=== PATIENT | female | born 1990 ===

== ENCOUNTER → 2019-11-19 07:47 | Outpatient (BNVA) | payer OTHER, SELFPAY | PROVIDERS: PCP Family Medicine; Visit Provider Advanced Practice Midwife | DX: Z01.419 Encounter for gynecological examination (general) (routine) without abnormal findings (principal); Z20.2 Contact with and (suspected) exposure to infections with a predominantly sexual mode of transmission | CPT/HCPCS: 87491; 87591 ==

== ENCOUNTER 2019-11-19 09:05 | Outpatient (REF) | payer OTHER, SELFPAY ==
[2019-11-27 21:37] LABS: HPV mRNA E6/E7 Not Detected (Not Detected)
== END 2019-11-19 09:06 | disposition home or self-care (01) ==
LOC: HO.LNP 09:05
PROVIDERS: Visit Provider Advanced Practice Midwife
DX: Z01.419 Encounter for gynecological examination (general) (routine) without abnormal findings (principal); Z20.2 Contact with and (suspected) exposure to infections with a predominantly sexual mode of transmission
CPT/HCPCS: 87624; 88142

== ENCOUNTER 2020-01-28 13:15 | Outpatient (REF) | payer OTHER, SELFPAY ==
[2020-01-28 14:40] LABS: MANUAL DIFF FLAG NO
[2020-01-28 14:47] LABS: Basophils Percent Auto 0.2 % (0-2); Eosinophils Absolute Auto 0.1 X10*3/uL (0.0-0.4); Eosinophils Percent Auto 0.9 % (0-4); Hematocrit 42.3 % (37-47); Hemoglobin 13.8 g/dl (12.0-16.0); Imm Gran Abs Auto 0.02 X10*3/uL (0.00-0.03); Imm Gran Pct Auto 0.3 % (0.0-0.4); Lymphocytes Absolute Auto 1.9 X10*3/uL (1.2-4.9); Mean Corpuscular HGB Conc 32.6 g/dl (31.0-35.0); Mean Corpuscular Hemoglobin 29.6 pg (27.0-33.0); Mean Corpuscular Volume 90.6 fL (80-98); Monocytes Absolute Auto 0.5 X10*3/uL (0.1-1.2); Monocytes Percent Auto 9.1 % (2-11); Neutrophils Absolute Auto 3.2 X10*3/uL (2.0-8.3); Neutrophils Percent Auto 56.5 % (45-73); Platelet Count 248 X10*3/uL (160-400); Red Blood Count 4.67 X10*6/uL (4.20-5.50); Red Cell Distribution Width 12.9 % (11.0-16.0); White Blood Count 5.7 X10*3/uL (4.8-10.8)
[2020-01-28 15:05] LABS: Alanine Aminotransferase 21 U/L (0-31); Alkaline Phosphatase 50 U/L (39-117); Anion Gap 15 (12-20); Aspartate Amino Transferase 24 U/L (5-31); Bilirubin Total 0.8 mg/dL (0.0-1.0); Blood Urea Nitrogen 9 mg/dL (9-16); Calcium 8.6 mg/dL (8.4-10.2); Carbon Dioxide 20 mmol/L (22-29); Chloride 106 mmol/L (96-108); Cholesterol 175 mg/dL; Estimated Glomerular Filt Rate > 60; Glucose Fasting 69 mg/dL (60-99); HDL Cholesterol 54 mg/dL; LDL Cholesterol Calculated 99 mg/dl; Potassium 4.4 mmol/l (3.3-5.1); Sodium 137 mmol/L (135-145); Total Protein 7.2 g/dL (6.5-8.0); Triglycerides 111 mg/dL
[2020-01-28 15:24] LABS: TSH reflex Free T4 1.27 mIU/mL (0.32-4.0)
== END 2020-01-28 13:16 | disposition home or self-care (01) ==
LOC: HO.LAB 13:15
PROVIDERS: PCP Family Medicine; Visit Provider Family Medicine
DX: E66.3 Overweight (principal); Z00.00 Encounter for general adult medical examination without abnormal findings
CPT/HCPCS: 36415; 80053; 80061; 84443; 85025

== ENCOUNTER 2020-02-13 17:25 | Emergency (ER) | payer OTHER, SELFPAY ==
[2020-02-13 18:40] VITALS: BP 145/97; PULSE 96; RESP 18; TEMP 37.1; O2SAT 98; BMI 27.6
--- NOTE | 2020-02-13 19:10 | ED.GENADULT ---
HPI - General Adult General Chief complaint: General Medical Stated complaint: COVID + Time Seen by Provider: 02/13/20 18:26 Source: patient Mode of arrival: ambulatory Limitations: no limitations History of Present Illness HPI narrative: 29 y/o female who was tested positive for COVID two weeks ago presents to the ER with acute onset of loss of sense of taste and smell, continued headaches and continues chest wall tenderness. She reportedly called urgent care and told them she had persistent headaches and new loss of taste/smell and she was told to come to the ER for evaluation of possible stroke. She denies numbness, weakness, tingling, difficulty speaking, difficulty walking. Headaches have been generalized since she was diagnosed, moderate to severe with some improvement with Tylenol. No SOB or BRANDON. No fevers at home. Related Data Home Medications Medication Instructions Recorded Confirmed norethindrone acetate 1.5 1 tab PO DAILY 11/19/19 mg-ethinyl estradiol 30 mcg tablet Previous Rx's Medication Instructions Recorded norethindrone acetate 1.5 1 tab PO DAILY #21 tab 11/19/19 mg-ethinyl estradiol 30 mcg tablet Allergies Allergy/AdvReac Type Severity Reaction Status Date / Time Penicillins [PENICILLINS] Allergy Intermediate rash Verified 02/13/20 18:36 Review of Systems Review of Systems: Constitutional: No Fever, No Chills ENT/Mouth: No sore throat, No Rhinorrhea, No Swallowing Difficulty Cardiovascular: + Chest Pain (when touching her chest wall), No SOB, No Orthopnea, No Edema Respiratory: No Cough, No Sputum, No Wheezing, No dyspnea Gastrointestinal: No Nausea, No Vomiting, No Diarrhea, No abdominal Pain, No Hematochezia, No Melena Genitourinary: No Dysuria, No Urinary Frequency, No Hematuria Musculoskeletal: No joint pain, + Myalgias Skin: No Skin Lesions, No rash Neuro: No Weakness, No Numbness, No Dizziness, + Headache Psych: + Anxiety/Panic, No Depression Heme/Lymph: No Bruising, No Lymphadenopathy PMFSH Past Medical History Attestation statement: The following information was validated with the patient. Surgical History No history of previous surgery Family History Family History Mother Ovarian cancer Maternal Grandmother Breast cancer Social History Social History Alcohol intake: never Smoking Status: Never smoker Advance Directives: No Advance Directives Information Provided: Yes Gender identity: female Physical Exam Vital Signs: Vital Signs: Last Vital Signs Temp 98.7 F 02/13/20 18:40 Pulse 96 02/13/20 18:40 Resp 18 02/13/20 18:40 BP 145/97 H 02/13/20 18:40 Pulse Ox 98 02/13/20 18:40 Body Mass Index 27.6 Appearance: Alert. Oriented X3. No acute distress. Eyes: Pupils equal, round and reactive to light. ENT: Pharynx normal. Neck: Normal inspection. Neck supple. CVS: Normal heart rate and rhythm. Pulses normal. Left sided anterior chest wall tenderness, no ecchymosis. Respiratory: No respiratory distress. Breath sounds normal. Abdomen: Soft and nontender. +BS x4 Skin: Skin warm and dry. Normal skin color. Normal skin turgor. No rashes. Extremities: No lower extremity edema. Negative Faye's sign. Neuro: Oriented X 3. No motor deficit. No sensory deficit. Normal gait. Normal finger-nose, normal heel to jordan. Non-focal examination. NIH Stroke Scale Internal: Initial- Upon Arrival Level of Consciousness: Alert Level of Consciousness Questions: Answers both questions correctly Level of Consciousness Commands: Performs both tasks correctly Best Gaze: Normal Visual: No visual loss Facial Palsy: Normal Motor Arm (Right): No drift Motor Arm (Left): No drift Motor Leg (Right): No drift Motor Leg (Left): No drift Limb Ataxia: Absent Sensory: Normal Best Language: No aphasia Dysarthia: Normal Extinction and Inattention: No abnormality Score: 0 Course Course Course Narrative: 29 y/o female with history of COVID presenting with persistent headaches, chest discomfort and new onset of loss of sense of taste and smell. Very low suspicion for CVA, her examination is completely normal, non-focal. No description of TIA symptoms. Her VS are within normal limits without tachycardia or hypoxia. No clinical signs of DVT. She was counseled on how loss of taste/smell can occur with COVID and can persist for weeks to months. She was counseled on worrisome signs and symptoms of stroke and hypoxia that should prompt immediate ER evaluation. She is stable for discharge. Critical Care Time Critical Care Time Critical Care Time: No Discharge Plan Discharge Clinical Impression: COVID-19 Patient Disposition: Home, Self-Care Instructions: Costochondritis (ED), COVID-19 (Coronavirus Disease 2019) (ED) Additional Instructions: Your examination is normal today. Your chest discomfort is most likely muscular in nature. Take Tylenol and Motrin as needed for headaches and chest discomfort. Your loss of sense of taste and smell may persist for weeks or months. If you develop worsening headache, numbness, extremity weakness, difficulty breathing, shortness of breath, or new/different chest pain seek medical attention or come back to the ER for further evaluation. Follow up wtih your doctor this week. Prescriptions: No Action norethindrone ac-eth estradiol 1.5-30 mg-mcg tablet 1 tab PO DAILY RF: 0 norethindrone ac-eth estradiol [Loestrin 1.5/30 (21)] 1.5-30 mg-mcg tablet 1 tab PO DAILY Qty: 21 RF: 11 Interventions: ED Discharge Assessment Last Done: 02/13/20 19:16 Discharge Date/Time: 02/13/20 19:17
== END 2020-02-13 19:17 | disposition home or self-care (01) ==
PROVIDERS: Emergency Provider Internal Medicine
DX: M94.0 Chondrocostal junction syndrome [Tietze] (principal); Z86.16 Personal history of COVID-19
CPT/HCPCS: 99283

== ENCOUNTER 2020-08-25 06:44 | Outpatient (REF) | payer OTHER, SELFPAY ==
[2020-08-25 08:06] LABS: MANUAL DIFF FLAG NO
[2020-08-25 08:19] LABS: Basophils Percent Auto 0.1 % (0-2); Eosinophils Absolute Auto 0.2 X10*3/uL (0.0-0.4); Eosinophils Percent Auto 3.2 % (0-4); Hematocrit 39.2 % (37-47); Hemoglobin 12.7 g/dl (12.0-16.0); Imm Gran Abs Auto 0.03 X10*3/uL (0.00-0.03); Imm Gran Pct Auto 0.4 % (0.0-0.4); Lymphocytes Percent Auto 41.9 % (20-40); Mean Corpuscular HGB Conc 32.4 g/dl (31.0-35.0); Mean Corpuscular Hemoglobin 29.7 pg (27.0-33.0); Mean Corpuscular Volume 91.6 fL (80-98); Mean Platelet Volume 11.7 fL (9.4-12.3); Monocytes Absolute Auto 0.4 X10*3/uL (0.1-1.2); Monocytes Percent Auto 5.3 % (2-11); Neutrophils Absolute Auto 3.5 X10*3/uL (2.0-8.3); Neutrophils Percent Auto 49.1 % (45-73); Platelet Count 258 X10*3/uL (160-400); Red Blood Count 4.28 X10*6/uL (4.20-5.50); White Blood Count 7.1 X10*3/uL (4.8-10.8)
[2020-08-25 09:00] LABS: Alanine Aminotransferase 14 U/L (0-31); Albumin Level 3.8 g/dL (3.5-5.0); Alkaline Phosphatase 46 U/L (39-117); Anion Gap 12 (12-20); Aspartate Amino Transferase 17 U/L (5-31); Bilirubin Total 1.5 mg/dL (0.0-1.0); Blood Urea Nitrogen 8 mg/dL (9-16); Calcium 8.5 mg/dL (8.4-10.2); Carbon Dioxide 23 mmol/L (22-29); Chloride 106 mmol/L (96-108); Cholesterol 180 mg/dL; Estimated Glomerular Filt Rate > 60; Glucose Fasting 77 mg/dL (60-99); HDL Cholesterol 61 mg/dL; LDL Cholesterol Calculated 104 mg/dl; Potassium 4.6 mmol/L (3.3-5.1); Sodium 136 mmol/L (135-145); Total Protein 6.7 g/dL (6.5-8.0); Triglycerides 78 mg/dL
[2020-08-25 09:06] LABS: TSH reflex Free T4 1.94 uIU/mL (0.32-4.0)
[2020-08-27 21:21] LABS: TS Negative Control Passed; TS Panel A 0; TS Panel B 0; TS Positive Control Passed; TSpotTB Negative (SeeBelow)
== END 2020-08-25 06:45 | disposition home or self-care (01) ==
LOC: HO.LAB 06:44
PROVIDERS: PCP Family Medicine; Visit Provider Family Medicine
DX: Z00.00 Encounter for general adult medical examination without abnormal findings (principal); Z11.1 Encounter for screening for respiratory tuberculosis
CPT/HCPCS: 36415; 80053; 80061; 84443; 85025; 86481

== ENCOUNTER 2020-12-24 13:43 | Outpatient (REF) | payer OTHER, SELFPAY ==
[2020-12-25 13:55] LABS: CT PCR NOT DETECTED (Not Detect.); NG PCR NOT DETECTED (Not Detect.)
[2020-12-27 14:48] LABS: BV Int Neg Control Negative (Negative); BV Int Pos Control Positive (Positive)
== END 2020-12-24 13:44 | disposition home or self-care (01) ==
LOC: HO.LAB 13:43
PROVIDERS: PCP Family Medicine; Visit Provider Advanced Practice Midwife
DX: Z01.419 Encounter for gynecological examination (general) (routine) without abnormal findings (principal)
CPT/HCPCS: 87480; 87491; 87510; 87591; 87660

== ENCOUNTER 2021-12-27 13:26 | Outpatient (REF) | payer OTHER, SELFPAY ==
[2021-12-27 18:31] LABS: CT PCR NOT DETECTED (Not Detect.); NG PCR NOT DETECTED (Not Detect.)
== END 2021-12-27 13:27 | disposition home or self-care (01) ==
LOC: HO.LNP 13:26
PROVIDERS: Visit Provider Advanced Practice Midwife
DX: Z11.3 Encounter for screening for infections with a predominantly sexual mode of transmission (principal)
CPT/HCPCS: 87491; 87591

== ENCOUNTER 2022-09-14 14:59 | Outpatient (AMB) | payer OTHER, SELFPAY ==
--- NOTE | 2022-09-14 15:05 | A.OFFPC_ITS ---
Vital Signs 09/14/22 15:06 Height 4 ft 11 in Weight 165 lb 8 oz BMI 33.4 BP 126/82 Blood Pressure Location Rt brachial Position Sitting Pulse 85 Pulse Source Pulse Oximeter Temp 97.7 F Temp Source Temporal Artery Scan Pulse Oximetry (%) 98 Oxygen Delivery Method Room Air Intake Visit Reasons: Lower Back Pain Intake Note: Patient reports having pain on right mid section of her back radiating to the right side of abdomen and then proceeds to radiate to the lower abdomen area. The pain has been present for about 2 months inconsistently. Patient would like to request labs to be ordered. Learning Development Specialist Required: No Accompanied by: Self / Same As Patient Allergies Penicillins [PENICILLINS] Allergy (Intermediate, Verified 09/14/22 15:34) rash Medication List - Last Reconciled 09/14/22 by Maria De Jesus Ca CNP norethindrone ac-eth estradiol 1.5-30 mg-mcg (Junel) 1 tab PO DAILY 21 days Tobacco use date assessed: 09/14/22 Dental Screening Dental Screen Date: 09/14/22 Did you have a dental visit in the last 12 months?: Yes Did you have a dental problem in the last 6 months where you did not have access to dental care?: No Was dental information given to patient?: Patient has dentist HPI HPI Comments History of Present Illness Details 32-year-old female presents with complaints of intermittent pain to her right upper abd quadrant. She notes the pain sometimes radiates to the right flank. She has been alternating between Tylenol Motrin with significant improvement. She states the pain has been ongoing for the past 2 months. No nausea, vomiting, diarrhea, fever, chills, body aches, fatigue or weakness. No bowel irregularities. Denies injury or trauma. [facility] Surgical History No history of previous surgery Family History Mother Ovarian cancer Maternal Grandmother Breast cancer Social History Household Members: Significant Other Household Members Other:: daughter Housing: Apartment Alcohol intake: never Patient Tobacco Use Status: Never used Tobacco e-Cigarette/Vaping Use: Never Used service: No Current occupational status: employed Current occupation: [employer] Sexual orientation: Straight/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 Gender identity: Female Cognitive needs: No Hearing needs: No Vision needs: No Female Reproductive History Menstrual Age of Menarche: 7 Questionnaire Thrive Questionnaire Date Thrive assessed: 08/21/20 Review of Systems Const Details: Const Denies chills, Denies fatigue, Denies fever(s), Denies headache(s) and Denies weakness ENT Denies dizziness and Denies headache(s) Card Denies chest pain, Denies lightheadedness, Denies dyspnea and Denies other (Palpitations) Resp Denies cough, Denies dyspnea, Denies wheezing and Denies other ( shortness of breath) GI Reports abdominal pain, Denies melena, Denies hematochezia, Denies change in bowel habits, Denies dyspepsia and Denies nausea Denies hematuria and Denies dysuria Musc Denies abnormal gait, Denies myalgias, Denies arthralgias, Denies numbness and Denies tingling Skin/Breast Denies rash, Denies unusual bruising and Denies wounds Neuro Denies abnormal gait, Denies dizziness, Denies headache(s), Denies memory loss, Denies numbness, Denies Sensory deficit (Neuro), Denies tingling and Denies weakness Psych Denies anxiety, Denies depression, Denies memory loss Endo Denies cold intolerance, Denies fatigue, Denies heat intolerance, Denies polydipsia and Denies polyuria Aller/Immun Denies wheezing Physical exam (Primary Care) Vital Signs: Last Vital Signs Temp 97.7 F 09/14/22 15:06 Pulse 85 09/14/22 15:06 BP 126/82 09/14/22 15:06 Pulse Ox 98 09/14/22 15:06 Oxygen Delivery Method Room Air 09/14/22 15:06 BMI result Body Mass Index 33.4 Tobacco/Smoking Status: Tobacco use Status Tobacco use date assessed 09/14/22 09/14/22 15:16 Patient Tobacco Use Status Never used Tobacco 09/14/22 15:16 e-Cigarette/Vaping Use Never Used 09/14/22 15:16 Thrive Assessment: Date of Thrive Assessment Date Thrive assessed 08/21/20 09/14/22 15:16 Const Other: General: no acute distress and well developed Nutritional Appearance: well nourished Orientation/consciousness: patient oriented x3 [facility] Head: Yes normocephalic and Yes atraumatic Eyes General: appearance normal, both eyes and all related structures Pupils: Equal, round and reactive pupils present EOM: EOMs intact bilaterally Resp Effort & Inspection: normal respiratory effort Auscultation: clear to auscultation bilaterally Cardio Rate: regular rate Rhythm: regular rhythm Heart sounds: S1 normal heart sound present, S2 normal heart sound present, no gallops, no murmurs and no rubs GI Palpation (GI): No Abdominal aortic bruit present, Soft to palpation, tender right upper quadrant, No hepatosplenomegaly present and No Rebound tenderness present Auscultation: normal bowel sounds Negative Conte sign General: Yes no CVA tenderness Back/Spine/Pelvis Back: no CVA tenderness Cervical Spine: cervical ROM normal and No Cervical spine tenderness Thoracic/Lumbar Spine: thoraco-lumbar ROM normal, No pain with thoraco-lumbar ROM, No thoracic spinal tenderness and No lumbar spinal tenderness Extrem General: Yes normal to inspection, No edema and No calf tenderness Skin General: warm and dry. Normal skin color. Normal skin turgor Rashes: no rashes Neuro General: patient oriented x3, gait normal and no focal neuro deficit Cranial nerves: Yes Equal, round and reactive pupils present Cognition (Neuro): normal cognition Gait exam (Neuro): Normal gait present Sensory Exam: No Sensory deficit (Neuro) Psych Appearance: grossly normal Affect: normal affect Attitude: cooperative Thought process: Normal thought process present Assessment and Plan Assessment & Plan (1) Abdominal pain: Code(s): R10.9 - Unspecified abdominal pain Plan: 32-year-old female presents with complaints of intermittent pain to her right upper abd quadrant. She notes the pain sometimes radiates to the right flank. Right upper abdomen tender to palpation Negative Conte sign Labs ordered to rule out kidney or liver disease May take Tylenol or Motrin for pain or discomfort Warm/cold compresses encouraged Advised to get fasting blood work done Follow-up with worsening or new symptoms Verbalized understanding and agreed with treatment plan. Orders: Orders Comprehensive [place]. Panel Fast Today R10.9 - Unspecified abdominal pain Complete Blood Count Auto Diff Today R10.9 - Unspecified abdominal pain UA CC w/rflx Micro + Cult Today R10.9 - Unspecified abdominal pain Coding Level of Care Code Est Pt Level 3 (50761) Diagnoses Abdominal pain R10.9 Time Spent (min) 25
[2022-09-14 15:06] VITALS: BP 126/82; PULSE 85; TEMP 36.5; O2SAT 98; BMI 33.4
== END 2022-09-14 15:44 | disposition home or self-care (01) ==
PROVIDERS: PCP Family Medicine; Visit Provider Nurse Practitioner Family
DX: R10.9 Unspecified abdominal pain (principal)
CPT/HCPCS: 99213

== ENCOUNTER 2022-09-15 06:18 | Outpatient (REF) | payer OTHER, SELFPAY ==
[2022-09-15 11:33] LABS: Appearance Urine Turbid; Color Urine Dark Yellow; Glucose Urine UA Negative (Negative); Leukocyte Esterase Urine Small (1+) (Negative); MANUAL DIFF FLAG NO; Nitrite Urine Negative (Negative); PH 5.5 (5.0-9.0); Specific Gravity - Urine >= 1.030 (1.005-1.025); UMIC TRIGGER UACC YES; Urine Blood Small (1+) (Negative); Urine Ketones Negative (Negative); Urine Protein Negative (Neg-Trace)
[2022-09-15 11:37] LABS: Bacteria Urine None Seen (None Seen); Hyaline Casts Urine 0-2 /LPF (0-2); UACC Culture Trigger YES
[2022-09-15 12:02] LABS: Basophils Percent Auto 0.4 % (0-2); Eosinophils Absolute Auto 0.2 X10*3/uL (0.0-0.4); Eosinophils Percent Auto 2.2 % (0-4); Hematocrit 41.1 % (37.0-47.0); Hemoglobin 13.4 g/dl (12.0-16.0); Imm Gran Abs Auto 0.03 X10*3/uL (0.00-0.03); Imm Gran Pct Auto 0.4 % (0.0-0.4); Lymphocytes Absolute Auto 3.5 X10*3/uL (1.2-4.9); Lymphocytes Percent Auto 41.3 % (20-40); Mean Corpuscular HGB Conc 32.6 g/dl (31.0-35.0); Mean Corpuscular Hemoglobin 29.7 pg (27.0-33.0); Mean Corpuscular Volume 91.1 fL (80.0-98.0); Mean Platelet Volume 11.6 fL (9.4-12.3); Monocytes Absolute Auto 0.4 X10*3/uL (0.1-1.2); Neutrophils Absolute Auto 4.3 x10*3/uL (2.0-8.3); Neutrophils Percent Auto 50.7 % (45-73); Platelet Count 304 X10*3/uL (160-400); Red Blood Count 4.51 X10*6/uL (4.20-5.50); White Blood Count 8.5 X10*3/uL (4.8-10.8)
[2022-09-15 12:45] LABS: Alanine Aminotransferase 17 U/L (0-31); Albumin Level 3.9 g/dL (3.5-5.0); Alkaline Phosphatase 49 U/L (39-117); Anion Gap 12 (12-20); Aspartate Amino Transferase 17 U/L (5-31); Bilirubin Total 1.2 mg/dL (0.0-1.0); Blood Urea Nitrogen 10 mg/dL (9-16); Carbon Dioxide 23 mmol/L (22-29); Chloride 109 mmol/L (96-108); Estimated Glomerular Filt Rate > 60; Glucose Fasting 83 mg/dL (60-99); Potassium 4.4 mmol/L (3.3-5.1); Sodium 140 mmol/L (135-145); Total Protein 7.1 g/dL (6.5-8.0)
== END 2022-09-15 06:19 | disposition home or self-care (01) ==
LOC: HO.HMGCLDS 06:18
PROVIDERS: PCP Family Medicine; Visit Provider Nurse Practitioner Family
DX: R10.9 Unspecified abdominal pain (principal)
CPT/HCPCS: 36415; 80053; 81001; 85025; 87086

== ENCOUNTER 2022-11-11 21:45 | Emergency (ER) | payer OTHER, SELFPAY ==
[2022-11-11 21:55] VITALS: BP 148/87; PULSE 95; RESP 18; TEMP 36.9; O2SAT 98; BMI 33.4
[2022-11-11 23:05] VITALS: RESP 18
[2022-11-11 23:28] LABS: Eosinophils Absolute Auto 0.2 X10*3/uL (0.0-0.4); Hemoglobin 13.2 g/dl (12.0-16.0); Mean Corpuscular Hemoglobin 29.9 pg (27.0-33.0); PLT CLUMP 1; SCAN SMEAR FLAG 1
--- NOTE | 2022-11-11 23:29 | PC.NURSE ---
pt a&ox3. respirations even and unlabored. pt coming from home reporting a headache for one month, constipation and right abdominal and flank pain. pt reports moving her bowel this morning and reports the stool being little and small. pt reports pain with bowel movement and reports seeing scant blood on the toilet paper after wiping. pt reports chest pain at this time that she reports may be due to gas. pt denies nausea, vomiting and diarrhea. abdomen soft non tender to touch with hypoactive bowel sounds in all 4 quadrants. pt normal sinus on tele 80-84. urine and labs obtained and sent at this time. iv placed.
[2022-11-11 23:30] LABS: Basophils Percent Auto 0.2 % (0-2); Eosinophils Percent Auto 2.2 % (0-4); Imm Gran Abs Auto 0.03 X10*3/uL (0.00-0.03); Imm Gran Pct Auto 0.4 % (0.0-0.4); Lymphocytes Absolute Auto 3.1 X10*3/uL (1.2-4.9); Mean Corpuscular HGB Conc 33.8 g/dl (31.0-35.0); Mean Corpuscular Volume 88.2 fL (80.0-98.0); Mean Platelet Volume 11.1 fL (9.4-12.3); Monocytes Absolute Auto 0.6 X10*3/uL (0.1-1.2); Monocytes Percent Auto 7.5 % (2-11); Neutrophils Absolute Auto 4.1 x10*3/uL (2.0-8.3); Neutrophils Percent Auto 50.7 % (45-73); Red Blood Count 4.42 X10*6/uL (4.20-5.50); Red Cell Distribution Width 12.7 % (11.0-16.0)
[2022-11-11 23:39] LABS: Alanine Aminotransferase 29 U/L (0-31); Alkaline Phosphatase 59 U/L (39-117); Anion Gap 14 (12-20); Aspartate Amino Transferase 23 U/L (5-31); Bilirubin Total 0.8 mg/dL (0.0-1.0); Blood Urea Nitrogen 10 mg/dL (9-16); Calcium 8.8 mg/dL (8.4-10.2); Carbon Dioxide 21 mmol/L (22-29); Chloride 109 mmol/L (96-108); Creatinine Clr Calc Pharmacy 102.8; Estimated Glomerular Filt Rate > 60; Glucose Random 92 mg/dL (60-115); Sodium 140 mmol/L (135-145); Total Protein 7.3 g/dL (6.5-8.0)
[2022-11-11 23:46] LABS: MANUAL DIFF FLAG NO; Platelet Count 200 X10*3/uL (160-400)
[2022-11-12 00:22] VITALS: BP 140/92; PULSE 92; RESP 20; TEMP 37; O2SAT 95
[2022-11-12 02:00] VITALS: BP 127/90; PULSE 87; RESP 18; O2SAT 98
--- NOTE | 2022-11-12 02:16 | ED.GENADULT ---
HPI - General Adult General Chief complaint: General Medical Stated complaint: headache/multiple complaints Time Seen by Provider: 11/12/22 00:01 Source: patient and family () Mode of arrival: ambulatory History of Present Illness HPI narrative: This is a 32-year-old female who presents with difficulties on defecation for the past few days requiring straining and has been trying to use [id number] Dulcolax without significant success and she states that over the past couple of days she has started having blood mixed with her stool but denies any swelling within her underwear and is only noticed it on the toilet paper and in the toilet bowl. She also states that it hurts when she has a bowel movement but otherwise denies any fevers or chills. Related Data Previous Rx's Medication Instructions Recorded norethindrone acetate 1.5 1 tab PO DAILY 21 days #21 tabs 10/06/22 mg-ethinyl estradiol 30 mcg tablet (Junel) Allergies Allergy/AdvReac Type Severity Reaction Status Date / Time Penicillins [PENICILLINS] Allergy Intermediate rash Verified 11/11/22 21:55 Review of Systems Review of Systems: Pertinent positives and negatives as stated in HPI [facility] Past Medical History Source: nursing notes reviewed Surgical History No history of previous surgery Family History Family History Mother Ovarian cancer Maternal Grandmother Breast cancer Social History Social History Household Members: Significant Other Household Members Other:: daughter Housing: Apartment Alcohol intake: never Patient Tobacco Use Status: Never used Tobacco Smoked in Last 30 Days: No e-Cigarette/Vaping Use: Never Used Use of substances other than those prescribed or required for medical reasons: No Advance Directives: No Advance Directives Information Provided: Yes service: No Current occupational status: employed Current occupation: [employer] Sexual orientation: Straight/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 Gender identity: Female Cognitive needs: No Hearing needs: No Vision needs: No Physical Exam ED Vital Signs: Vital Signs - 24 hr 11/11/22 21:55 11/11/22 23:05 11/12/22 00:22 Temperature 98.4 F 98.6 F Pulse Rate 95 92 Respiratory Rate 18 18 20 Blood Pressure 148/87 H 140/92 H Pulse Oximetry 98 95 Oxygen Delivery Method Room Air Room Air 11/12/22 02:00 Temperature Pulse Rate 87 Respiratory Rate 18 Blood Pressure 127/90 H Pulse Oximetry 98 Oxygen Delivery Method Room Air BMI result Body Mass Index 33.4 VITAL SIGNS: Reviewed. GENERAL: Well developed, well nourished, in no acute distress. HEAD: Normocephalic/atraumatic EYES: PERRLA, EOMI EARS: Ext canals without abnormality NOSE: Nares patent bilateral OROPHARYNX: no oral lesions noted, posterior pharynx clear NECK: Supple, no adenopathy LUNGS: Normal breath sounds. No adventitious sounds or accessory muscle use. SpO2<98> CARDIOVASCULAR: Regular rate and rhythm without noted murmurs ABDOMEN: Soft, non-tender, non-distended with bowel sounds. FEROZ: [Bias Binding Cutter-Cait] There are non inflamed external hemorrhoids noted with some noted irritation at the base of 1 of them but no fissures appreciated and no gross blood noted. MUSCULOSKELETAL: No tenderness, deformities, or effusions noted on gross inspection. EXTREMITIES: No cyanosis, clubbing or edema. SKIN: Inspection of the skin reveals no rashes NEUROLOGIC: Alert and oriented x 4. Strength and sensation to light touch were grossly intact x 4. Medications Administered Discontinued Medications Generic Name Dose Route Start Last Admin Trade Name Freq PRN Reason Stop Dose Admin Acetaminophen 975 mg 11/12/22 00:45 11/12/22 01:01 Acetaminophen 325 Mg Tablet PO 11/12/22 00:46 975 mg ONCE ONE Administration Ibuprofen 400 mg 11/12/22 00:45 11/12/22 01:01 Ibuprofen 400 Mg Tablet PO 11/12/22 00:46 400 mg ONCE ONE Administration Lidocaine HCl 10 ml 11/12/22 01:52 11/12/22 02:19 Lidocaine Hcl 2 % Urojet 10 Ml Jel.Pf.Suzanna TOPICAL 11/12/22 01:53 10 ml ONCE ONE Administration Medical Decision Making Medical Decision Making [facility] Narrative: 32-year-old female with history and clinical presentation, DDX: Constipation, bleeding hemorrhoids, UTI, general headache I reviewed all investigations hematologic indices are negative for leukocytosis or left shift, no anemia or thrombocytopenia. Chemistry indices a without significant findings, there is no VIOLETTE or electrolytes/liver enzyme abnormalities, high sensitivity troponin is undetectable. Urine is negative and urinalysis is significant for small amount hematuria. KUB does demonstrate retained stool but otherwise normal bowel gas pattern. There are no significant findings on EKG. My interpretation is that patient has had constipation that has led to inflamed hemorrhoids during defecation but this is been complicated by some irritation of 1 of the hemorrhoids this leading to some mild bleeding without change in hemoglobin. Patient was given instructions for [id number] stool softeners as well as some topical lidocaine for relief and instructed follow-up with primary care doctor. Differential Diagnosis Differential Diagnoses: The differential diagnosis associated with the presentation includes Please see the discussion above Admission/Observation Consideration of admission/observation: Escalation of care including admission/observation considered Please see the discussion above Lab Data MDM Lab Attestation statement: I reviewed the patient's lab results. Please see the discussion above 11/11/22 23:17 11/11/22 23:17 Labs: Lab Results 11/11/22 11/11/22 11/11/22 Range/Units 23:02 23:09 23:17 WBC 8.0 (4.8-10.8) X10*3/uL RBC 4.42 (4.20-5.50) X10*6/uL Hgb 13.2 (12.0-16.0) g/dl Hct 39.0 (37.0-47.0) % MCV 88.2 (80.0-98.0) fL MCH 29.9 (27.0-33.0) pg MCHC 33.8 (31.0-35.0) g/dl RDW 12.7 (11.0-16.0) % Plt Count 200 D (160-400) X10*3/uL MPV 11.1 (9.4-12.3) fL Immature Gran % (Auto) 0.4 (0.0-0.4) % Neut % (Auto) 50.7 (45-73) % Lymph % (Auto) 39.0 (20-40) % Pope % (Auto) 7.5 (2-11) % Eos % (Auto) 2.2 (0-4) % Baso % (Auto) 0.2 (0-2) % Lymph # (Auto) 3.1 (1.2-4.9) X10*3/uL Pope # (Auto) 0.6 (0.1-1.2) X10*3/uL Eos # (Auto) 0.2 (0.0-0.4) X10*3/uL Baso # (Auto) 0.0 (0.0-0.2) X10*3/uL Abs Immat Gran (auto) 0.03 (0.00-0.03) X10*3/uL Absolute Neuts (auto) 4.1 (2.0-8.3) x10*3/uL Absolute Nucleated RBC 0.000 (0.0-0.012) X10*3/uL Nucleated RBC % (auto) 0.0 (0.0-0.2) /100WBC Sodium 140 (135-145) mmol/L Potassium 4.0 (3.3-5.1) mmol/L Chloride 109 H (96-108) mmol/L Carbon Dioxide 21 L (22-29) mmol/L Anion Gap 14 (12-20) BUN 10 (9-16) mg/dL Creatinine 0.71 (0.5-1.4) mg/dL Estim Creat Clear Calc 102.8 Estimated GFR > 60 Random Glucose 92 (60-115) mg/dL Calcium 8.8 (8.4-10.2) mg/dL Total Bilirubin 0.8 (0.0-1.0) mg/dL AST 23 (5-31) U/L ALT 29 (0-31) U/L Alkaline Phosphatase 59 (39-117) U/L Troponin I High Sens < 2.7 (<3.5-17.0) ng/L Total Protein 7.3 (6.5-8.0) g/dL Albumin 4.0 (3.5-5.0) g/dL Urine Color Yellow Urine Appearance Clear Urine pH 7.5 (5.0-9.0) Ur Specific [place] 1.015 (1.005-1.025) Urine Protein Negative (Neg-Trace) mg/dL Urine Glucose (UA) Negative (Negative) mg/dL Urine Ketones Negative (Negative) mg/dL Urine Blood Small (1+) H (Negative) Urine Nitrite Negative (Negative) Ur Leukocyte Esterase Negative (Negative) Urine RBC 11-20 H (0-2) /HPF Urine WBC 0-5 (0-5) /HPF Ur Squamous Epith Cells 3-5 (0-2) /HPF Urine Bacteria None Seen (None Seen) Hyaline Casts 0-2 (0-2) /LPF Urine Test NEGATIVE (NEGATIVE) Independent Interpretation I performed an independent interpretation of an: EKG Interpretation: Normal sinus rhythm, HR-85, no STEMI, CT/QRS/QTC is within normal limits. Radiology Impression Discussion of test interpretation with radiology: I have reviewed the radiologist's reading. Radiologist Impression: Please see the discussion above External Record Review External record reviewed: Office record, Outpatient record, Prior outpatient labs and Prior outpatient radiology Discharge Plan Discharge Clinical Impression: Constipation, Hemorrhoids Patient Disposition: Home, Self-Care Instructions: Constipation (ED), Hemorrhoids (ED), High Fiber Diet (ED), Sitz Bath (DC), Fleet Enema (ED) Additional Instructions: 1. Recommend adding [id number]-[id number] MiraLax for additional resolution of your constipation in addition to increasing the amount of water intake and consumption of fruits and vegetables. 2. You can place a small amount of the lidocaine around your anus prior to bowel movement. In addition, consider jfyd-skk-[id number] Preparation H for additional symptom relief. 3. Follow-up with primary care provider on Monday morning. Return to the ER for any worsening symptoms. Prescriptions: No Action norethindrone ac-eth estradiol [ ()] 1.5-30 mg-mcg tablet 1 tab PO DAILY 21 Days Qty: 21 4RF Rx Instructions: skip placebo week for continuous dosing Referrals: Carlos Monsivais MD [Primary Care Provider] - Interventions: ED Discharge Assessment Last Done: 11/12/22 02:26 Discharge Date/Time: 11/12/22 02:27
== END 2022-11-12 02:27 | disposition home or self-care (01) ==
PROVIDERS: Emergency Provider Student in an Organized Health Care Education/Training Program; PCP Internal Medicine
DX: K59.00 Constipation, unspecified (principal); K64.4 Residual hemorrhoidal skin tags
CPT/HCPCS: 36415; 74018; 80053; 81001; 81025; 84484; 85025; 93005; 99283; 99285

== ENCOUNTER 2022-12-22 11:24 | Outpatient (AMB) | payer OTHER, SELFPAY ==
--- NOTE | 2022-12-22 11:40 | A.OFFPC_ITS ---
Vital Signs 12/22/22 11:41 Height 5 ft Weight 166 lb BMI 32.4 BP 118/72 Blood Pressure Location Lt brachial Pulse 83 Pulse Source Pulse Oximeter Pulse Oximetry (%) 98 Oxygen Delivery Method Room Air Intake Visit Reasons: constipation+ NEEDS PHQ9+THRIVE Intake Note: Patient is here with follow up on constipation, she was seen at the hospital. She was looking for a laxitive other than Miralx. Allergies Penicillins [PENICILLINS] Allergy (Intermediate, Verified 12/22/22 11:48) rash Tobacco use date assessed: 09/14/22 HPI constipation+ NEEDS PHQ9+THRIVE HPI Details 32 y/o female presents today with compla ints of constipation. She states she is looking for another laxative other than Miralax. Had been seen at the emergency department for abdominal pain. Plain film had shown significant stools. She was prescribed Miralax and had been recommended to keep up her water intake. FORMERLY [facility] Surgical History No history of previous surgery Family History Mother Ovarian cancer Maternal Grandmother Breast cancer Social History Household Members: Significant Other Household Members Other:: daughter Housing: Apartment Alcohol intake: never Patient Tobacco Use Status: Never used Tobacco e-Cigarette/Vaping Use: Never Used service: No Current occupational status: employed Current occupation: [employer]IVE Sexual orientation: Straight/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 Gender identity: Female Cognitive needs: No Hearing needs: No Vision needs: No Female Reproductive History Menstrual Age of Menarche: 7 Questionnaire PHQ-9 Over the last 2 weeks, how often have you been bothered by any of the following problems? 1. Little interest or pleasure in doing things: not at all 2. Feeling down, depressed, or hopeless: not at all 3. Trouble falling or staying asleep, or sleeping too much: not at all 4. Feeling tired or having little energy: not at all 5. Poor appetite or overeating: not at all 6. Feeling bad about yourself - or that you are a failure or have let yourself or your family down: not at all 7. Trouble concentrating on things, such as reading the newspaper or watching television: not at all 8. Moving or speaking so slowly that other people could have noticed. Or the opposite - being so fidgety or restless that you have been moving around a lot more than usual: not at all 9. Thoughts that you would be better off or of hurting yourself in some way: not at all Total score: 0 Depression Screening Interpretation: Negative Depression Screening Done: Yes 56711 - PHQ-9 Billing: Yes Source: Developed by Drs. Doni Piedra, Nery Shields, Rg Schneider and colleagues, with an educational flakito from [employer]. Thrive Questionnaire Date Thrive assessed: 08/21/20 I am a: Patient What is your living situation today?: I have a steady place to live Within the past 12 months, did the food you bought not last and you didn't have the money to get more?: Never true Within the past 12 months, did you worry whether your food would run out before you got money to buy more?: Never true Do you have trouble paying for medicines?: No Do you have trouble getting transportation to medical appointments?: No Do you have trouble paying your heating and electricity bill?: No Do you have trouble taking care of your child, family member or friend?: No Do you have trouble with day-to-day activities such as bathing, preparing meals, shopping, managing finances, etc.?: No Are you currently unemployed and looking for a job?: No Are you interested in more education?: No AUDIT C Alcohol Use Questionnaire (AUDIT-C) 1. How often do you have a drink containing alcohol?: Never 3. How often do you have six or more drinks on one occasion?: Never Total Score: 0 SCOTTY-7 AMB Questionnaire SCOTTY-7 Date SCOTTY - 7 assessed: 12/22/22 Feeling nervous, anxious, or on edge: 0 = Not at all Not being able to stop or control worryin = Not at all Worrying too much about different things: 0 = Not at all Trouble relaxin = Not at all Being so restless that it is hard to sit still: 0 = Not at all Becoming easily annoyed or irritable: 0 = Not at all Feeling afraid as if something awful might happen: 0 = Not at all Total SCOTTY-7 score (0-4 normal; 5-9 mild; 10-14 moderate; 15-21 severe): 0 Source: Developed by Drs. Doni Piedra, Nery Shields, Rg Schneider and colleagues, with an educational flakito from [employer]. SCOTTY-7 Assessment Billing SCOTTY-7 Assessment Tool: SCOTTY-7 Assessment 11380 Review of Systems Const Denies chills, Denies fatigue, Denies fever(s), Denies headache(s) and Denies weakness ENT Denies dizziness and Denies headache(s) Card Denies dyspnea Resp Denies cough, Denies dyspnea, Denies wheezing and Denies other (shortness of breath) GI Reports constipation Musc Denies numbness and Denies tingling Neuro Denies dizziness, Denies headache(s), Denies numbness, Denies tingling and Denies weakness Psych Denies anxiety and Denies depression Endo Denies fatigue Aller/Immun Denies wheezing Physical exam (Primary Care) Vital Signs: Last Vital Signs Pulse 83 12/22/22 11:41 BP 118/72 12/22/22 11:41 Pulse Ox 98 12/22/22 11:41 Oxygen Delivery Method Room Air 12/22/22 11:41 BMI result Body Mass Index 32.4 Tobacco/Smoking Status: Tobacco use Status Tobacco use date assessed 09/14/22 12/22/22 11:41 Patient Tobacco Use Status Never used Tobacco 12/22/22 11:41 e-Cigarette/Vaping Use Never Used 12/22/22 11:41 PHQ-9: PHQ-9 Score PHQ-9: Total score 0 12/22/22 11:55 Depression Screening Interpretation: Negative Thrive Assessment: Date of Thrive Assessment Date Thrive assessed 08/21/20 12/22/22 11:41 Const General: well developed; No acute distress Nutritional Appearance: well nourished Orientation/consciousness: patient oriented x3 HENMT Head: Yes normocephalic and Yes atraumatic Eyes General: appearance normal, both eyes and all related structures Pupils: Equal, round and reactive pupils present EOM: EOMs intact bilaterally Resp Effort & Inspection: normal respiratory effort Neuro General: patient oriented x3 and gait normal Cranial nerves: Yes Equal, round and reactive pupils present Psych Affect: normal affect Assessment and Plan Assessment & Plan (1) Constipation: Code(s): K59.00 - Constipation, unspecified Plan: Ongoing?constipation Strongly?encouraged?patient?to?increase?her?water?intake Will?give?her?a?soluble?fiber?tab She?can?also?try?senna?for?2?weeks. Patient?requests?referral?to?gastroenterology.??Will?make?referral?but?I?encoura ged?her?that?if?things?are?much?better?on?the?above?regimen,?she?cancel?the?appo intment Medications: New sennosides (senna) 8.6 mg PO DAILY PRN 14 tabs 0RF constipation 14 days calcium polycarbophil (FiberCon) 625 mg PO DAILY 30 tabs 2RF 30 days Coding Level of Care Code Est Pt Level 3 (27883) Diagnoses Constipation K59.00 Additional Codes SCOTTY-7 Assessment Billing - SCOTTY-7 Assessment Tool: SCOTTY-7 Assessment 76081 ([id number])
[2022-12-22 11:41] VITALS: BP 118/72; PULSE 83; O2SAT 98; BMI 32.4
== END 2022-12-22 12:45 | disposition home or self-care (01) ==
PROVIDERS: PCP Family Medicine; Visit Provider Family Medicine
DX: K59.00 Constipation, unspecified (principal)
CPT/HCPCS: 99213

== ENCOUNTER 2023-01-05 07:38 | Outpatient (AMB) | payer OTHER, SELFPAY ==
--- NOTE | 2023-01-05 08:05 | A.OFFPC_ITS ---
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 Harrison for a PE Allergies Penicillins [PENICILLINS] Allergy (Intermediate, Verified 01/05/23 08:05) rash Tobacco use date assessed: 01/05/23 Dental Screening Dental Screen Date: 01/05/23 Did you have a dental visit in the last 12 months?: Yes Did you have a dental problem in the last 6 months where you did not have access to dental care?: No Was dental information given to patient?: Patient has dentist HPI HPI Comments History of Present Illness Details Patient is a 32-year-old female in today to establish care, and to have her physical exam. She was seen in the emergency room 6 weeks prior to this appointment for abdomen pain. She was given a workup including a KUB which demonstrated constipation. Patient was seen 1 month later for the same issue and was given MiraLax. At the time of appointment today she states that she is no longer having constipation or abdomen pain. Her last [facility] smear was in [facility] 2019 which was negative, she has her next appointment with OBGYN in January 2023. She has not gotten her yearly flu or COVID vaccine, plans to get them within the next 2 weeks on a weekend. She is due for an eye exam and will be making an appointment for optometry. She has no complaints at the time of appointment. [facility] Surgical History No history of previous surgery Family History (Updated 01/05/23 @ 08:08 by Luz Birmingham CMA) Mother Ovarian cancer Maternal Grandmother Breast cancer Social History Household Members: Significant Other Household Members Other:: daughter Housing: Apartment Alcohol intake: never Patient Tobacco Use Status: Never used Tobacco e-Cigarette/Vaping Use: Never Used service: No Current occupational status: employed Current occupation: [employer] INTER[employer] Sexual orientation: Straight/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 Gender identity: Female Cognitive needs: No Hearing needs: No Vision needs: No Female Reproductive History Menstrual Age of Menarche: 7 Questionnaire PHQ-9 Over the last 2 weeks, how often have you been bothered by any of the following problems? 1. Little interest or pleasure in doing things: not at all 2. Feeling down, depressed, or hopeless: not at all 3. Trouble falling or staying asleep, or sleeping too much: not at all 4. Feeling tired or having little energy: not at all 5. Poor appetite or overeating: not at all 6. Feeling bad about yourself - or that you are a failure or have let yourself or your family down: not at all 7. Trouble concentrating on things, such as reading the newspaper or watching television: not at all 8. Moving or speaking so slowly that other people could have noticed. Or the opposite - being so fidgety or restless that you have been moving around a lot more than usual: not at all 9. Thoughts that you would be better off or of hurting yourself in some way: not at all Total score: 0 Depression Screening Interpretation: Negative Depression Screening Done: Yes 10345 - PHQ-9 Billing: Yes Source: Developed by Drs. Doni Piedra, Nery Shields, Rg Schneider and colleagues, with an educational flakito from [employer]. Thrive Questionnaire Date Thrive assessed: 01/05/23 I am a: Patient What is your living situation today?: I have a steady place to live Within the past 12 months, did the food you bought not last and you didn't have the money to get more?: Never true Within the past 12 months, did you worry whether your food would run out before you got money to buy more?: Never true Do you have trouble paying for medicines?: No Do you have trouble getting transportation to medical appointments?: No Do you have trouble paying your heating and electricity bill?: No Do you have trouble taking care of your child, family member or friend?: No Do you have trouble with day-to-day activities such as bathing, preparing meals, shopping, managing finances, etc.?: No Are you currently unemployed and looking for a job?: No AUDIT C Alcohol Use Questionnaire (AUDIT-C) 1. How often do you have a drink containing alcohol?: Never Total Score: 0 SCOTTY-7 AMB Questionnaire SCOTTY-7 Date SCOTTY - 7 assessed: 01/05/23 Feeling nervous, anxious, or on edge: 0 = Not at all Not being able to stop or control worryin = Not at all Worrying too much about different things: 0 = Not at all Trouble relaxin = Not at all Being so restless that it is hard to sit still: 0 = Not at all Becoming easily annoyed or irritable: 0 = Not at all Feeling afraid as if something awful might happen: 0 = Not at all Total SCOTTY-7 score (0-4 normal; 5-9 mild; 10-14 moderate; 15-21 severe): 0 Source: Developed by Drs. Doni Piedra, Nery Shields, Rg Schneider and colleagues, with an educational flakito from [employer]. SCOTTY-7 Assessment Billing SCOTTY-7 Assessment Tool: SCOTTY-7 Assessment 69903 Review of Systems Const Details: Constitutional : No Weight loss, No Fever, No Chills, No Fatigue, No Malaise ENT/Mouth : No sore throat, No Rhinorrhea, No otalgia. Eyes: No Eye Pain, No Swelling, No Redness. Cardiovascular : No Chest Pain, No SOB, No Dyspnea on Exertion, No Orthopnea, No Edema, No Palpitations Respiratory : No Cough, No Sputum, No Wheezing Gastrointestinal : No Nausea, No Vomiting, No Diarrhea, No Constipation, No abdominal Pain, No Hematochezia, No Melena Genitourinary : No Dysuria, No Urinary Frequency, No Hematuria, Musculoskeletal : No joint pain, No Myalgias, No Joint Swelling Skin : No Skin Lesions, No rash Neuro : No Weakness, No Numbness, No Dizziness, No Headache Psych : No Anxiety/Panic, No Depression Heme/Lymph: No Bruising, No Bleeding,No Lymphadenopathy Endocrine : No Polyuria, No Polydipsia All other systems reviewed and are negative Physical exam (Primary Care) Vital Signs: Last Vital Signs Pulse 85 01/05/23 08:07 BP 134/82 01/05/23 08:07 Pulse Ox 98 01/05/23 08:07 Oxygen Delivery Method Room Air 01/05/23 08:07 Care Plan Goal for BP management: Vital signs have been reviewed and are stable BMI result Body Mass Index 32.6 Tobacco/Smoking Status: Tobacco use Status Tobacco use date assessed 01/05/23 01/05/23 08:10 Patient Tobacco Use Status Never used Tobacco 01/05/23 08:10 e-Cigarette/Vaping Use Never Used 01/05/23 08:10 PHQ-9: PHQ-9 Score PHQ-9: Total score 0 01/05/23 08:10 Depression Screening Interpretation: Negative Thrive Assessment: Date of Thrive Assessment Date Thrive assessed 01/05/23 01/05/23 08:10 Const General: cooperative and no acute distress Orientation/consciousness: patient oriented x3 Limitations: no limitations HENMT Head: Yes normal to inspection and Yes normocephalic Ears: hearing grossly normal bilaterally and TM's normal bilaterally General nose exam: Normal external nose present and Normal septum present Face and sinus: Yes normal facial exam and Yes sinuses nontender Mouth: Normal oral and palatal mucosa present Throat: Yes posterior oropharynx normal and Yes tonsils normal Eyes General: appearance normal, both eyes and all related structures Pupils: Equal, round and reactive pupils present Direct Ophthalmoscopy: normal light reflex and no photophobia Neck Neck: Yes normal visual inspection, Yes full ROM and Yes no lymphadenopathy Resp Effort & Inspection: normal respiratory effort Auscultation: clear to auscultation bilaterally Cardio Rhythm: regular rhythm Heart sounds: S1 normal heart sound present and S2 normal heart sound present GI Inspection: Yes normal to inspection Palpation (GI): Soft to palpation and nontender Auscultation: normal bowel sounds General: Yes no CVA tenderness Back/Spine/Pelvis Back: no CVA tenderness Skin General skin exam: no rashes or lesions noted Neuro General: patient oriented x3 Cranial nerves: Yes Equal, round and reactive pupils present Motor exam (neuro): 5/5 motor strength present throughout Romberg Test: Negative Extrem General: Yes normal to inspection and Yes full ROM Psych Affect: normal affect Insight: Good insight present (Psych) Judgement: Good judgement present (Psych) Results Reviewed Results Reviewed: WBC 8.0 4.8-10.8 X10*3/uL RBC 4.42 4.20-5.50 X10*6/uL HGB 13.2 12.0-16.0 g/dl HCT 39.0 37.0-47.0 % MCV 88.2 80.0-98.0 fL MCH 29.9 27.0-33.0 pg MCHC 33.8 31.0-35.0 g/dl RDW 12.7 11.0-16.0 % PLT 200 # 160-400 X10*3/uL MPV 11.1 9.4-12.3 fL Neut Pct Auto 50.7 45-73 % ImGran Pct Auto 0.4 0.0-0.4 % Lymp Pct Auto 39.0 20-40 % Parke Pct Auto 7.5 2-11 % Eos Pct Auto 2.2 0-4 % Baso Pct Auto 0.2 0-2 % NRBC Pct Auto 0.0 0.0-0.2 /100WBC ANC Neut Abs # 4.1 2.0-8.3 x10*3/uL ImGran Abs Auto 0.03 0.00-0.03 X10*3/uL Lymph Abs Auto 3.1 1.2-4.9 X10*3/uL Parke Abs Auto 0.6 0.1-1.2 X10*3/uL Eos Abs Auto 0.2 0.0-0.4 X10*3/uL Baso Abs Auto 0.0 0.0-0.2 X10*3/uL NRBC Abs Auto 0.000 0.0-0.012 X10*3/uL Sodium 140 135-145 mmol/L Potassium 4.0 3.3-5.1 mmol/L CL 109 H 96-108 mmol/L CO2 21 L 22-29 mmol/L Gap 14 12-20 BUN 10 9-16 mg/dL Creat 0.71 0.5-1.4 mg/dL Estimated CrCl 102.8 Provided height and weight: 152.4 cm, 77.6 kg. eGFR (calculated from the MDRD study equation) and eCrCl (calculated from the Cockcroft-Gault equation) are based on different parameters and may not yield comparable results. If eCrCl result is absurd, please check patient's height/weight. EGFR > 60 NOTE: For -[place] individuals, multiply the result by 1.210. Chronic Kidney Disease: Estimated GFR < 60 mL/min/1.73m2 Severe Kidney Disease: Estimated GFR < 15 mL/min/1.73m2 Glucose, Random 92 60-115 mg/dL CA 8.8 8.4-10.2 mg/dL Total Bili 0.8 0.0-1.0 mg/dL AST (GOT) 23 5-31 U/L ALT (GPT) 29 0-31 U/L Protein, Total 7.3 6.5-8.0 g/dL Alb 4.0 3.5-5.0 g/dL Alk Phos 59 39-117 U/L Assessment and Plan Assessment & Plan (1) Physical exam: Code(s): Z00.00 - Encounter for general adult medical examination without abnormal findings Plan: Patient had recent blood draw for weeks prior to this appointment which included a CBC, CMP, and UA. Will add lab draw of lipid profile, T4, TSH, vitamin-D. Patient has upcoming appointment in 3 weeks with OBGYN for Pap smear. Patient has declined in office flu shot, states she will get both the flu and COVID immunization over the weekend. She has been educated to make an appointment with optometry. Patient will make a follow-up physical exam for 1 year. I will return the patient the results of the blood draw. Patient is agreeable to this plan. (2) Adult general medical exam: Code(s): Z00.00 - Encounter for general adult medical examination without abnormal findings Orders: Orders Lipid Panel Today Z00.00 - Encounter for general adult medical examination without abnormal findings TSH reflex Free T4 Today Z00.00 - Encounter for general adult medical examination without abnormal findings Vitamin D 25-OH (D2 and D3) Today Z00.00 - Encounter for general adult medical examination without abnormal findings Review Flu Vaccine not done: patient reason (Patient decline) Coding Level of Care Code Est Pt Level 3 (97972) Diagnoses Physical exam Z00.00 Adult general medical exam Z00.00 Additional Codes SCOTTY-7 Assessment Billing - SCOTTY-7 Assessment Tool: SCOTTY-7 Assessment 92944 ([id number]) Time Spent (min) 30
[2023-01-05 08:07] VITALS: BP 134/82; PULSE 85; O2SAT 98; BMI 32.6
== END 2023-01-05 08:36 | disposition home or self-care (01) ==
PROVIDERS: PCP Nurse Practitioner Primary Care; Visit Provider Nurse Practitioner Primary Care
DX: Z00.00 Encounter for general adult medical examination without abnormal findings (principal)
CPT/HCPCS: 99395

== ENCOUNTER 2023-01-13 08:49 | Outpatient (REF) | payer OTHER, SELFPAY ==
[2023-01-13 13:23] LABS: Cholesterol 183 mg/dL (<200); HDL Cholesterol 61 mg/dL (>40); LDL Cholesterol Calculated 109 mg/dL (<100); Triglycerides 67 mg/dL (<150)
[2023-01-13 13:57] LABS: TSH reflex Free T4 1.45 uIU/mL (0.32-4.0)
[2023-01-17 18:35] LABS: Vitamin D 25-OH, D2 4 ng/mL; Vitamin D 25-OH, D3 15 ng/mL; Vitamin D 25-OH, Total 19 ng/mL (30-100)
== END 2023-01-13 08:50 | disposition home or self-care (01) ==
LOC: HO.HMGCLDS 08:49
PROVIDERS: PCP Nurse Practitioner Primary Care; Visit Provider Nurse Practitioner Primary Care
DX: Z00.00 Encounter for general adult medical examination without abnormal findings (principal)
CPT/HCPCS: 36415; 80061; 82306; 84443

== ENCOUNTER 2023-02-02 08:54 | Outpatient (AMB) | payer OTHER, SELFPAY ==
--- NOTE | 2023-02-02 09:24 | MHC.OFFVIS ---
Intake Vital Signs 02/02/23 09:25 Height 5 ft Weight 165 lb BMI 32.2 BP 116/70 Intake Visit Reasons: [employer] annual exam/45 mins per BM Teacher Of The Sight Impaired Required: No Information Interpreted: non-clinical & clinical Civil Cad Tech: Civil Cad Tech Present (Caroline CARVER) Accompanied by: Self / Same As Patient Allergies Penicillins [PENICILLINS] Allergy (Intermediate, Verified 02/02/23 09:39) rash Is last menstrual period known: No (pills) HPI HPI Comments History of Present Illness Details She is a premenopausal woman presenting for annual examination. Doing well with concerns: Hot flashes, sweating, muscle aches, constipation, low vitamin-D level, control concerns these are causing her side effects, no withdrawal bleed in years, facial hair growth she is blocking, acne. Reports taking her control regularly. Unable to void for urine sample today to verify test. She tries to eat healthy and stays active with exercise. Regular monthly menses. Currently is sexually active. She denies vaginal itching and irritation. STI screening offered; she accepts. FH ovarian and breast cancer. Last pap smear 2019, negative. She denies any contraindications to control such as: migraines with aura, history of DVT or pulmonary emboli, high blood pressure, liver disease, thrombolic disorders, Lupus, +LEO, breast cancer, or smoking. 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 Sexual orientation: Straight/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 Gender identity: Female Cognitive needs: No Hearing needs: No Vision needs: No Female Reproductive History Menstrual Age of Menarche: 7 Total pregnancies: 1 Full term: 1 Number of Living Children: 1 Date of last pap smear: 11/19/19 Review of Systems Const All systems reviewed & are unremarkable except as noted in HPI and below Reports as per HPI Eyes Reports no additional complaints ENT Reports no additional complaints Card Reports no additional complaints Resp Reports no additional complaints GI Reports as per HPI and Reports no additional complaints Reports as per HPI Musc Reports no additional complaints Skin/Breast Reports as per HPI Neuro Reports no additional complaints Psych Reports no additional complaints Endo Reports no additional complaints Herminio/Lymph Reports no additional complaints Aller/Immun Reports no additional complaints Physical Exam Vital Signs: Last Vital Signs BP 116/70 02/02/23 09:25 BMI result Body Mass Index 32.2 Const General: cooperative, healthy appearing, no acute distress, well developed and alert Orientation/consciousness: patient oriented x3 HEENT Head: Yes normal to inspection Eyes General: appearance normal, both eyes and all related structures Neck Neck: Yes normal visual inspection Thyroid: Thyroid normal Chest Chest palpation & inspection: normal inspection of the chest and other (no puckering, dimpling, peau de orange, retraction, discharge, masses) Breast/axilla inspection: normal inspection of the breasts Breast/axilla palpation: normal palpation of the breasts Resp Effort & Inspection: normal respiratory effort GI Inspection: Yes normal to inspection Palpation (GI): Soft to palpation Rectal Exam - Female: deferred General: Yes bladder normal to palpation External Female Exam: normal external appearance and normal appearance of the urethra Speculum Exam - Vagina: normal appearance of the vagina, normal palpation and normal vaginal discharge Speculum Exam - Cervix: normal appearance of the cervix and normal palpation Bimanual exam- vagina & uterus: normal bimanual exam, normal palpation, uterine size normal, bladder normal to palpation, normal palpation and non-tender Bimanual Exam- Adnexa, other: no masses Skin General skin exam: no rashes or lesions noted Rashes: no rashes Neuro General: patient oriented x3 Cognition (Neuro): normal cognition Extrem General: Yes normal to inspection Psych Attitude: cooperative Thought process: Normal thought process present Assessment & Plan Assessment & Plan (1) Well woman exam with routine gynecological exam: Code(s): Z01.419 - Encounter for gynecological examination (general) (routine) without abnormal findings (2) Pelvic cramping: Code(s): R10.2 - Pelvic and perineal pain Plan Discussed: At the end of the visit she admitted to have pelvic cramping, unable to void. Current recommendations for pap smears per ASCCP guidelines. Breast awareness and periodic breast exams. Maintain a healthy lifestyle including a well balanced diet and routine exercise. Insert wart control hormone use warnings: go to ER if and loss of vision, blindness, severe headache, chest pain or difficulty breathing, severe abdominal pain, or any pain or swelling in an extremity. Lab workup due to her symptoms to include also an ultrasound. Return to the office in 2 weeks for test results. All of her questions and concerns were addressed to the best of my ability. 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 This note is constructed using voice recognition software. While every effort has been made to ensure accuracy, operations and maintenance supervisor errors may have been included. Orders: Orders CT NG by PCR Today Z01.419 - Encounter for gynecological examination (general) (routine) without abnormal findings, Z20.2 - Contact with and (suspected) exposure to infections with a predominantly sexual mode of transmission 17 Hydroxyprogesterone Today L68.0 - Hirsutism, L70.9 - Acne, unspecified HCG Quantitative Today L68.0 - Hirsutism, L70.9 - Acne, unspecified Follicle Stimulating Hormone Today R23.2 - Flushing Testosterone, Free/Total Today L68.0 - Hirsutism, L70.9 - Acne, unspecified Prolactin Today L68.0 - Hirsutism, L70.9 - Acne, unspecified DHEA Sulfate Today L68.0 - Hirsutism, L70.9 - Acne, unspecified US pelvic and transvaginal Today R10.2 - Pelvic and perineal pain UA CC w/rflx Micro + Cult Today R10.2 - Pelvic and perineal pain Medications: Refilled norethindrone ac-eth estradiol 1.5-30 mg-mcg () skip placebo week for continuous dosing 1 tab PO DAILY 21 days 63 tabs 4RF Coding Level of Care Code Est Pt Prev Care 18-39y(98453) Diagnoses Well woman exam with routine gynecological exam Z01.419 Pelvic cramping R10.2
[2023-02-02 09:25] VITALS: BP 116/70; BMI 32.2
== END 2023-02-02 10:07 | disposition home or self-care (01) ==
PROVIDERS: PCP Family Medicine; Visit Provider Advanced Practice Midwife
DX: Z01.419 Encounter for gynecological examination (general) (routine) without abnormal findings (principal); R10.2 Pelvic and perineal pain
CPT/HCPCS: 99395

== ENCOUNTER 2023-02-02 08:54 | Outpatient (REF) | payer OTHER, SELFPAY | END 2023-02-02 08:55 | disposition home or self-care (01) | LOC: HO.LNP 08:54 | PROVIDERS: PCP Family Medicine; Visit Provider Advanced Practice Midwife | DX: Z01.419 Encounter for gynecological examination (general) (routine) without abnormal findings (principal); R10.2 Pelvic and perineal pain; L68.0 Hirsutism; L70.9 Acne, unspecified; Z11.3 Encounter for screening for infections with a predominantly sexual mode of transmission; Z80.41 Family history of malignant neoplasm of ovary; Z80.3 Family history of malignant neoplasm of breast | CPT/HCPCS: 99395 ==

== ENCOUNTER 2023-02-02 10:14 | Outpatient (REF) | payer OTHER, SELFPAY ==
[2023-02-02 12:29] LABS: Appearance Urine Clear; Color Urine Yellow; Glucose Urine UA Negative (Negative); Leukocyte Esterase Urine Negative (Negative); Nitrite Urine Negative (Negative); Specific Gravity - Urine 1.025 (1.005-1.025); UMIC TRIGGER UACC YES; Urine Blood Moderate (2+) (Negative); Urine Ketones Negative (Negative); Urine Protein Negative (Neg-Trace)
[2023-02-02 12:36] LABS: HCG Quantitative < 2 mIU/mL
[2023-02-02 13:00] LABS: Bacteria Urine 1+ (None Seen); Hyaline Casts Urine 0-2 /LPF (0-2); RBC Urine 0-2 /HPF (0-2); Squamous Epithelial Cell Urine 0-2 /HPF (0-2); WBC Urine 0-5 /HPF (0-5)
[2023-02-02 14:08] LABS: CT PCR NOT DETECTED (Not Detect.); NG PCR NOT DETECTED (Not Detect.)
[2023-02-03 09:33] LABS: DHEA Sulfate 87 mcg/dL (19-237); Follicle Stimulating Hormone 1.2 mIU/mL; Prolactin 6.8 ng/mL
[2023-02-10 14:09] LABS: Testosterone, Free 0.7 pg/mL (0.1-6.4); Testosterone, Total 13 ng/dL (2-45)
== END 2023-02-02 10:15 | disposition home or self-care (01) ==
LOC: HO.LAB 10:14
PROVIDERS: PCP Nurse Practitioner Primary Care; Visit Provider Advanced Practice Midwife
DX: Z01.419 Encounter for gynecological examination (general) (routine) without abnormal findings (principal); R23.2 Flushing; L68.0 Hirsutism; L70.9 Acne, unspecified; Z20.2 Contact with and (suspected) exposure to infections with a predominantly sexual mode of transmission; R10.2 Pelvic and perineal pain
CPT/HCPCS: 0353U; 81001; 82627; 83001; 83498; 84146; 84402; 84403; 84702

== ENCOUNTER 2023-03-01 10:24 | Outpatient (REF) | payer OTHER, SELFPAY ==
--- NOTE | ~2023-03-01 | US_ITS ---
EXAMINATION: US PELVIS CLINICAL INFORMATION: Pelvic pain; the last menstrual period is uncertain. COMPARISON: Pelvic ultrasound dated 11/13/2018. TECHNIQUE: Ultrasound of the pelvis is performed using both transabdominal and transvaginal transducers along with Doppler. Transvaginal imaging is performed due to inadequate visualization transabdominally. FINDINGS: Uterus: The uterus is anteverted. The uterus measures 8.1 x 3.5 x 4.7 cm. Nabothian cysts are seen within the cervix. The double wall endometrial thickness is 2 mm. The uterus is smooth in contour and has normal myometrial echogenicity. No visible fibroid. Adnexa: Both ovaries are visualized. There is normal color flow to the adnexa. There is no ovarian torsion. There is no pelvic ascites or fluid collection. Right ovary measures 2.8 x 1.5 x 1.3, volume 2.9 mL. Left ovary measures 1.6 x 2.2 x 1.0, volume 1.8 mL. US/US pelvic and transvaginal IMPRESSION: Nabothian cysts are seen within the cervix. The examination is otherwise unremarkable.
== END 2023-03-01 10:25 | disposition home or self-care (01) ==
LOC: HO.US 10:24
PROVIDERS: PCP Nurse Practitioner Primary Care; Visit Provider Advanced Practice Midwife
DX: R10.2 Pelvic and perineal pain (principal)
CPT/HCPCS: 76830; 76856

== ENCOUNTER 2023-04-05 14:39 | Outpatient (AMB) | payer MEDICAID, SELFPAY ==
[2023-04-05 14:44] VITALS: BP 118/78; PULSE 80; O2SAT 98; BMI 33.2
--- NOTE | 2023-04-05 14:44 | A.OFFPC_ITS ---
Vital Signs 04/05/23 14:44 Height 5 ft Weight 170 lb BMI 33.2 BP 118/78 Blood Pressure Location Lt brachial Position Sitting Pulse 80 Pulse Source Pulse Oximeter Pulse Oximetry (%) 98 Oxygen Delivery Method Room Air Intake Visit Reasons: Constipation Intake Note: Pt is here today for a sick visit. Pt c/o R side abdominal pain. Pt states that she has been constipated. Pt states that her stools have been hard and she noticed some blood. Allergies Penicillins [PENICILLINS] Allergy (Intermediate, Verified 04/05/23 14:55) rash Medication List - Last Reconciled 04/05/23 by KAMINI Rodriguez calcium polycarbophil (FiberCon) 625 mg PO DAILY 30 days norethindrone ac-eth estradiol 1.5-30 mg-mcg (Junel) 1 tab PO DAILY 21 days polyethylene glycol 3350 (Miralax) 17 grams PO DAILY sennosides (senna) 8.6 mg PO DAILY PRN 14 days Tobacco use date assessed: 04/05/23 Dental Screening Dental Screen Date: 04/05/23 Did you have a dental visit in the last 12 months?: Yes Did you have a dental problem in the last 6 months where you did not have access to dental care?: No Was dental information given to patient?: Patient has dentist HPI HPI Comments History of Present Illness Details Patient is here for an ongoing issue of constipation and abdominal pain. Patient previously had KUB 3 months prior which demonstrated constipation, was given MiraLax, had relief for couple of months, and has now developed constipation again. Patient has been taking MiraLax with little effect. She states that she feels like she is getting pain up under her ribs, and her stomach feels like it is always making noise and rumbling . Patient states that she does get relief when she does have a bowel movement. Admits to not taking MiraLax consistently. 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 1. Little interest or pleasure in doing things: not at all 2. Feeling down, depressed, or hopeless: not at all 3. Trouble falling or staying asleep, or sleeping too much: not at all 4. Feeling tired or having little energy: not at all 5. Poor appetite or overeating: not at all 6. Feeling bad about yourself - or that you are a failure or have let yourself or your family down: not at all 7. Trouble concentrating on things, such as reading the newspaper or watching television: not at all 8. Moving or speaking so slowly that other people could have noticed. Or the opposite - being so fidgety or restless that you have been moving around a lot more than usual: not at all 9. Thoughts that you would be better off or of hurting yourself in some way: not at all Total score: 0 Depression Screening Interpretation: Negative Depression Screening Done: Yes 63540 - PHQ-9 Billing: Yes Source: Developed by Drs. Doni Piedra, Nery Shields, Rg Schneider and colleagues, with an educational flakito from [employer]. Thrive Questionnaire Date Thrive assessed: 04/05/23 I am a: Patient What is your living situation today?: I have a steady place to live Within the past 12 months, did the food you bought not last and you didn't have the money to get more?: Never true Within the past 12 months, did you worry whether your food would run out before you got money to buy more?: Never true Do you have trouble paying for medicines?: No Do you have trouble getting transportation to medical appointments?: No Do you have trouble paying your heating and electricity bill?: No Do you have trouble taking care of your child, family member or friend?: No Do you have trouble with day-to-day activities such as bathing, preparing meals, shopping, managing finances, etc.?: No Are you currently unemployed and looking for a job?: No Are you interested in more education?: No Please select the resources that you would like help with: None Currently or been in a relationship where the following occur: no concerns reported THRIVE Score: 0 AUDIT C Alcohol Use Questionnaire (AUDIT-C) 1. How often do you have a drink containing alcohol?: Never 3. How often do you have six or more drinks on one occasion?: Never Total Score: 0 SCOTTY-7 AMB Questionnaire SCOTTY-7 Date SCOTTY - 7 assessed: 04/05/23 Feeling nervous, anxious, or on edge: 0 = Not at all Not being able to stop or control worryin = Not at all Worrying too much about different things: 0 = Not at all Trouble relaxin = Not at all Being so restless that it is hard to sit still: 0 = Not at all Becoming easily annoyed or irritable: 0 = Not at all Feeling afraid as if something awful might happen: 0 = Not at all Total SCOTTY-7 score (0-4 normal; 5-9 mild; 10-14 moderate; 15-21 severe): 0 Source: Developed by Drs. Doni Piedra, Nery Shields, Rg Schneider and colleagues, with an educational flakito from [employer]. SCOTTY-7 Assessment Billing SCOTTY-7 Assessment Tool: SCOTTY-7 Assessment 25836 Review of Systems Const Details: Constitutional : No Weight loss, No Fever, No Chills, No Fatigue, No Cardiovascular : No Chest Pain, No SOB, No Dyspnea on Exertion, No Orthopnea, No Edema, No Palpitations Respiratory : No Cough, No Sputum, No Wheezing Gastrointestinal : No Nausea, No Vomiting, No Diarrhea, Admits Constipation, Admits abdominal Pain, No Hematochezia, No Melena, Admits gas. Genitourinary : No Dysuria, No Urinary Frequency, No Hematuria, Neuro : No Weakness, No Numbness, No Dizziness, No Headache Psych : No Anxiety/Panic, No Depression Heme/Lymph: No Bruising, No Bleeding,No Lymphadenopathy All other systems reviewed and are negative Physical exam (Primary Care) BMI result Body Mass Index 33.2 Tobacco/Smoking Status: Tobacco use Status Tobacco use date assessed 01/05/23 01/05/23 08:10 Patient Tobacco Use Status Never used Tobacco 01/05/23 08:10 e-Cigarette/Vaping Use Never Used 01/05/23 08:10 Depression Screening Interpretation: Negative Thrive Assessment: Date of Thrive Assessment Date Thrive assessed 01/05/23 01/05/23 08:10 Currently or been in a relationship where the following occur: no concerns reported Const Other: Appearance: Alert.? Oriented X3.? No acute distress.? Cardiac: Normal heart rate and rhythm.? Pulses normal.? Respiratory: No respiratory distress.? Breath sounds normal.? Abdomen: Hyperactive. Some tenderness RUQ. No masses on deep palpation. Neuro: Oriented X 3.? No motor deficit.? No sensory deficit. CN 2-12 intact Assessment and Plan Assessment & Plan (1) Constipation: Comment: Patient has had intermittent constipation for the past 3 months. She has only been taking MiraLax intermittently. Will have patient start senna and Colace. Will also give patient for famotidine, dicyclomine, and simethicone. Patient will have labs, CBC, CMP, lipase and amylase. Patient will have ultrasound of the abdomen. Last thyroid values were normal. Code(s): K59.00 - Constipation, unspecified Qualifiers: Constipation type: unspecified constipation type Qualified Code(s): K59.00 - Constipation, unspecified Plan: Take your medications as prescribed. If you were prescribed antibiotics today, it is important that you take your medication to their entirety, do not skip any doses, do not finish them early. Follow-up with your primary care provider this week. Return to the emergency department with new or worsening symptoms. Such as fevers, chills, chest pain, shortness of breath, nausea, vomiting, dizziness, headache, vision changes, lethargy In case of emergency call 911 Plan Will refer to to GI if indicated. Patient has follow-up in 3 months she has been instructed to get back to the office within 2-3 days if no improvement Orders: Orders Comprehensive Met. Panel Today Z91.89 - Other specified personal risk factors, not elsewhere classified Amylase Today R10.9 - Unspecified abdominal pain US abdomen complete Today R10.9 - Unspecified abdominal pain Lipase Today R10.9 - Unspecified abdominal pain Medications: New docusate sodium (Colace) 100 mg PO DAILY 30 caps 0RF dicyclomine 10 mg PO BID PRN 30 caps 0RF abdominal pain simethicone (Gas Relief (simethicone)) 180 mg PO DAILY 30 caps 0RF famotidine 20 mg PO DAILY 90 tabs 0RF Refilled sennosides (senna) 8.6 mg PO DAILY 14 days PRN 14 tabs 0RF constipation Coding Level of Care Code Est Pt Level 3 (15245) Diagnoses Constipation, unspecified constipation type K59.00 Constipation type: unspecified constipation type Additional Codes SCOTTY-7 Assessment Billing - SCOTTY-7 Assessment Tool: SCOTTY-7 Assessment 55042 ([id number]) Time Spent (min) 30
== END 2023-04-05 15:48 | disposition home or self-care (01) ==
PROVIDERS: PCP Nurse Practitioner Primary Care; Visit Provider Nurse Practitioner Primary Care
DX: K59.00 Constipation, unspecified (principal)
CPT/HCPCS: 99214

== ENCOUNTER 2023-04-26 08:51 | Emergency (ER) | payer OTHER, SELFPAY ==
[2023-04-26 08:55] VITALS: BP 136/89; PULSE 94; RESP 16; TEMP 36.6; O2SAT 98; BMI 34.1
--- NOTE | 2023-04-26 09:53 | ED_ITS ---
HPI - General Adult General Chief complaint: General Medical Stated complaint: Ingrown toenail Time Seen by Provider: 04/26/23 09:53 Source: patient Mode of arrival: ambulatory Limitations: no limitations History of Present Illness HPI narrative: Patient is an otherwise healthy, 33 year old female, presenting to the ED with a 2 day history of right great toe pain. Patient reports getting a pedicure at the nail salon on Monday, and starting Monday she began to have pain in her right great toe. Patient reports swelling, redness, and pain with walking and putting pressure on the right side of her great toe along the border of the nail. Patient reports that the pain has been getting increasingly worse and that it has been draining puss. Denies fever/chills, lightheadedness, dizziness, headaches, vision changes, SOB, chest pain, and joint pain. Denies sick contacts, recent travel, and recent ABX use. MD complaint: R great toe pain Onset (ago): day(s) (2) Location: right and lower extremity (R great toe) Radiation: non-radiation Severity: mild Severity scale (1-10): 2 Quality: aching Pain Consistency: intermittent Relieving factors: rest Exacerbating factors: movement (weight bearing) Associated symptoms: denies other symptoms Treatments prior to arrival: NSAID, heat therapy (warm compress) and other (OTC ingrown toenail cream) Related Data Home Medications Medication Instructions Recorded Confirmed polyethylene glycol 3350 17 17 g PO DAILY 12/22/22 04/05/23 gram/dose oral powder (Miralax) Previous Rx's Medication Instructions Recorded norethindrone acetate 1.5 1 tab PO DAILY 21 days #63 tabs 02/02/23 mg-ethinyl estradiol 30 mcg tablet (Junel) calcium polycarbophil 625 mg 625 mg PO DAILY 30 days #30 tabs 03/29/23 tablet (FiberCon) docusate sodium 100 mg capsule 100 mg PO DAILY #30 caps 04/05/23 (Colace) famotidine 20 mg tablet 20 mg PO DAILY #90 tabs 04/05/23 sennosides 8.6 mg tablet (senna) 8.6 mg PO DAILY PRN constipation 04/05/23 14 days #14 tabs simethicone 180 mg capsule (Gas 180 mg PO DAILY #30 caps 04/05/23 Relief (simethicone)) dicyclomine 10 mg capsule 10 mg PO BID PRN abdominal pain 04/13/23 #30 caps cephalexin 500 mg capsule 500 mg PO Q6H 7 days #28 caps 04/26/23 Allergies Allergy/AdvReac Type Severity Reaction Status Date / Time Penicillins [PENICILLINS] Allergy Intermediate rash Verified 04/26/23 08:55 Review of Systems Constitutional: Constitutional: Reports no additional constitutional complaints, Denies chills, Denies fever(s) and Denies night sweats Eyes: Eyes: Reports no additional eye complaints, Denies blurry vision, Denies change in vision, Denies diplopia, Denies eye discharge, Denies loss of vision and Denies eye pain ENT: Denies dizziness Cardiovascular: Cardiovascular: Reports no additional cardiovascular complaints, Denies chest pain, Denies lightheadedness, Denies Loss of Consciousness and Denies dyspnea Respiratory: Respiratory: Reports no additional respiratory complaints and Denies dyspnea Gastrointestinal: Gastrointestinal: Reports no additional gastrointestinal complaints, Denies abdominal pain, Denies melena, Denies hematochezia, Denies change in bowel habits and Denies change in stool character Genitourinary: Genitourinary: Denies hematuria, Denies urinary frequency, Denies dysuria, Denies urinary incontinence, Denies urinary hesitancy and Denies urinary urgency Musculoskeletal: Musculoskeletal: Reports no additional musculoskeletal complaints, Denies numbness and Denies tingling Comments: right great toe pain Neurologic: Denies dizziness, Denies loss of vision, Denies numbness and Denies tingling Psychiatric: Psychiatric: Reports no additional psychiatric complaints Endocrine: Endocrine: Reports no additional endocrine complaints Hematologic/Lymphatic: Hematologic/Lymphatic: Reports no additional hematologic/lymphatic complaints Allergic/Immunologic: Allergic/Immunologic: Reports no additional allergic/immunologic complaints [facility] Past Medical History Attestation statement: The following information was validated with the patient. Source: old records reviewed and nursing notes reviewed Medical History (Updated 04/26/23 @ 11:25 by JEANETTE Valdez) Constipation Abdominal pain Acquired skin tag Constipation by delayed colonic transit Family history of breast cancer in first degree relative Encounter for annual routine gynecological examination Screening for cervical cancer Screening-pulmonary TB Adult general medical exam COVID-19 Laboratory examination ordered as part of a routine general medical examination Overweight Potential exposure to STD Well woman exam with routine gynecological exam Surgical History No history of previous surgery Family History Family History Mother Ovarian cancer Maternal Grandmother Breast cancer Social History Social History Household Members: Significant Other Household Members Other:: daughter Housing: Apartment Alcohol intake: never Patient Tobacco Use Status: Never used Tobacco e-Cigarette/Vaping Use: Never Used Advance Directives: No Advance Directives Information Provided: No service: No Current occupational status: employed 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 Sexual orientation: Straight/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 Gender identity: Female Cognitive needs: No Hearing needs: No Vision needs: Yes Physical Exam ED Vital Signs: Vital Signs - 24 hr 04/26/23 08:55 04/26/23 10:36 Temperature 97.9 F 98 F Pulse Rate 94 89 Respiratory Rate 16 20 Blood Pressure 136/89 148/85 H Pulse Oximetry 98 96 Oxygen Delivery Method Room Air Room Air BMI result Body Mass Index 34.1 Const General: cooperative, no acute distress, alert and awake Nutritional Appearance: obese Orientation/consciousness: patient oriented x3 Limitations: no limitations HENMT Head: Yes normal to inspection Ears: hearing grossly normal bilaterally General nose exam: Normal external nose present Face and sinus: Yes normal facial exam Mouth: Normal oral and palatal mucosa present, no drooling and no muffled voice Eyes General: appearance normal, both eyes and all related structures Periorbital: periorbital findings normal Eyelids: Yes eyelids normal Conjunctivae: conjunctivae normal Pupils: Equal, round and reactive pupils present EOM: EOMs intact bilaterally Neck Neck: Yes normal visual inspection Chest Chest palpation & inspection: normal inspection of the chest Resp Effort & Inspection: normal respiratory effort and able to speak in complete sentences Auscultation: clear to auscultation bilaterally Cardio Jugular venous distension: no JVD Palpation: normal PMI Rate: regular rate Rhythm: regular rhythm GI Inspection: Yes normal to inspection Neuro General: patient oriented x3 Cranial nerves: Yes Equal, round and reactive pupils present Cognition (Neuro): normal cognition Motor exam (neuro): 5/5 motor strength present throughout Sensory Exam: Normal double simultaneous stimulation for sensation Coordination: [id number] test normal Extrem General: Yes full ROM and Yes capillary refill normal Right lower extremity: full ROM and foot Details: normal capillary refill, tende rness Location: of the great toe Location: at the distal phalanx and warmth Location: of the great toe Location: at the distal phalanx and along the dorsal aspect Psych Appearance: grossly normal Mental Status: mental status grossly normal Affect: normal affect Attitude: cooperative Thought process: Normal thought process present Thought content: Normal thought content present Insight: Good insight present (Psych) Medical Decision Making Medical Decision Making MDM Narrative: Patient is a 33 year old assigned female at with no reported medical history presenting to the emergency department today with right great toe pain. Patient's physical exam was as noted and consistent with right great toe cellulitis. Patient does not have an ingrown right great toe nail as the sides of the nail are entirely visible. I explained my physical exam findings to the patient. I answered all questions asked by the patient. I stressed the importance of the patient taking her medication as prescribed and continuing to let the area drain. I stressed the importance of the patient following up with her primary care provider. I stressed the importance of the patient returning to the emergency department immediately if her symptoms were to worsen or if she were to develop any dizziness, shortness of breath, difficulty breathing, chest pain, blurry vision, loss of vision, nausea, vomiting, abdominal pain, fever, chills, back pain, or any other complaints. Patient verbalized agreement and understanding with this treatment plan and discharge. Differential Diagnosis Differential Diagnoses: The differential diagnosis associated with the presentation includes Right great toe pain Right great toe cellulitis Admission/Observation Consideration of admission/observation: Escalation of care including admission/observation considered Patient would have been admitted to the hospital had her clinical presentation warranted hospital admission. Prescription Management I considered prescription management with: Antibiotic (patient prescribed an antibiotic for right great toe cellulitis) Discharge Plan Discharge Clinical Impression: Cellulitis Patient Disposition: Home, Self-Care Instructions: Cellulitis (DC), Warm Compress or Soak (ED) Additional Instructions: Take your antibiotic as prescribed. Even when you start to feel better, COMPLETE THE ENTIRE COURSE. Follow up with your primary care provider. [facility] if your symptoms worsen or if you develop any dizziness, shortness of breath, difficulty breathing, chest pain, blurry vision, loss of vision, nausea, vomiting, abdominal pain, fever, chills, back pain, or any other complaints. Prescriptions: New cephalexin 500 mg capsule 500 mg PO Q6H 7 Days Qty: 28 0RF No Action calcium polycarbophil [FiberCon] 625 mg tablet 625 mg PO DAILY 30 Days Qty: 30 2RF dicyclomine 10 mg capsule 10 mg PO BID PRN (Reason: abdominal pain) Qty: 30 0RF docusate sodium [Colace] 100 mg capsule 100 mg PO DAILY Qty: 30 0RF sennosides [senna] 8.6 mg tablet 8.6 mg PO DAILY PRN (Reason: constipation) 14 Days Qty: 14 0RF simethicone [Gas Relief (simethicone)] 180 mg capsule 180 mg PO DAILY Qty: 30 0RF famotidine 20 mg tablet 20 mg PO DAILY Qty: 90 0RF polyethylene glycol 3350 [Miralax] 17 gram/dose powder 17 g PO DAILY norethindrone ac-eth estradiol [Junel ()] 1.5-30 mg-mcg tablet 1 tab PO DAILY 21 Days Qty: 63 4RF Rx Instructions: skip placebo week for continuous dosing Referrals: Maurisio Lilly FNP [Primary Care Provider] - Stand Alone Forms: Work/School Release Interventions: ED Discharge Assessment Last Done: 04/26/23 10:36 Discharge Date/Time: 04/26/23 10:37 Print Language: Portuguese
[2023-04-26 10:36] VITALS: BP 148/85; PULSE 89; RESP 20; TEMP 36.6; O2SAT 96
== END 2023-04-26 10:37 | disposition home or self-care (01) ==
PROVIDERS: Emergency Provider Emergency Medicine; PCP Nurse Practitioner Primary Care
DX: L03.031 Cellulitis of right toe (principal)
CPT/HCPCS: 99282; 99283

== ENCOUNTER 2023-05-01 08:28 | Outpatient (REF) | payer OTHER, SELFPAY ==
--- NOTE | ~2023-05-01 | US_ITS ---
EXAMINATION: US ABDOMEN COMPLETE CLINICAL INFORMATION: Unspecified abdominal pain. COMPARISON: X-ray abdomen KUB 11/12/2022. CT abdomen and pelvis 07/20/2018. Renal ultrasound 12/30/2016. TECHNIQUE: Real-time imaging of the abdominal viscera. Limited visualization due to bowel gas. FINDINGS: PANCREAS: Limited visualization of pancreatic tail and head. Imaged portion of pancreatic body is unremarkable. ABDOMINAL AORTA: Unremarkable. INFERIOR VENA CAVA: Visualized portions are normal. LIVER: Multiple hepatic cysts, largest left hepatic lobe 0.8 cm and right hepatic lobe 1.3 x 1.3 x 1.4 cm. 0.6 cm echogenic focus in the inferior right hepatic lobe, possibly representing a hemangioma, but difficult to characterize. Heterogeneous and coarse hepatic echotexture. Limited visualization. GALLBLADDER: Borderline gallbladder wall thickening of 3 mm. Gallstone measures 2.1 cm. The gallbladder is physiologically distended without evidence of sludge, polyps or pericholecystic fluid. COMMON BILE DUCT: Normal in caliber measuring 0.4 cm in diameter. RIGHT KIDNEY: No hydronephrosis. No renal calculi. Limited visualization. The kidney measures 10.2 cm in maximum dimension. LEFT KIDNEY: No hydronephrosis. No renal calculi. Limited visualization. The kidney measures 10.4 cm in maximum dimension. SPLEEN: Normal. The spleen measures 10.4 cm in maximum dimension. FREE FLUID: None. US/US abdomen complete IMPRESSION: 1. Multiple hepatic cysts, largest left hepatic lobe 0.8 cm and right hepatic lobe 1.4 cm. A 0.6 cm echogenic focus in the inferior right hepatic lobe, possibly representing a hemangioma, but difficult to characterize. 2. Heterogeneous and coarse hepatic echotexture. Correlation with liver function tests recommended. 3. Cholelithiasis. Borderline gallbladder wall thickening of 3 mm.
== END 2023-05-01 08:29 | disposition home or self-care (01) ==
LOC: HO.HMGCX 08:28
PROVIDERS: PCP Nurse Practitioner Primary Care; Visit Provider Nurse Practitioner Primary Care
DX: R10.9 Unspecified abdominal pain (principal)
CPT/HCPCS: 76700

== ENCOUNTER 2023-05-05 16:26 | Outpatient (REF) | payer OTHER, SELFPAY ==
[2023-05-05 18:32] LABS: Alanine Aminotransferase 17 U/L (0-31); Albumin Level 4.1 g/dL (3.5-5.0); Alkaline Phosphatase 61 U/L (39-117); Amylase 83 U/L (28-100); Anion Gap 10 (12-20); Aspartate Amino Transferase 17 U/L (5-31); Bilirubin Total 0.9 mg/dL (0.0-1.0); Blood Urea Nitrogen 10 mg/dL (9-16); Calcium 9.2 mg/dL (8.4-10.2); Carbon Dioxide 24 mmol/L (22-29); Chloride 107 mmol/L (96-108); Estimated Glomerular Filt Rate > 60; Glucose Random 76 mg/dL (60-115); Lipase 22 U/L (8-78); Potassium 4.1 mmol/L (3.3-5.1); Sodium 137 mmol/L (135-145); Total Protein 7.7 g/dL (6.5-8.0)
== END 2023-05-05 16:27 | disposition home or self-care (01) ==
LOC: HO.LAB 16:26
PROVIDERS: PCP Nurse Practitioner Primary Care; Visit Provider Nurse Practitioner Primary Care
DX: R10.9 Unspecified abdominal pain (principal); Z91.89 Other specified personal risk factors, not elsewhere classified
CPT/HCPCS: 36415; 80053; 82150; 83690

== ENCOUNTER 2023-05-16 10:33 | Outpatient (AMB) | payer OTHER, SELFPAY ==
--- NOTE | 2023-05-16 10:35 | MHC.OFFVIS ---
Intake Vital Signs 05/16/23 10:41 Height 4 ft 11 in Weight 168 lb BMI 33.9 BP 151/97 H Blood Pressure Location Rt brachial Position Sitting Pulse 77 Intake Visit Reasons: Calculus of gallbladder Intake Note: Patient referred by PCP Dr. Lilly for calculus of gallbladder. Patient c/o: on and off abd pain. Pain gets worse after eating. Abd US: 05-01-23. 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 Her symptoms consist of right upper quadrant pain radiating around to the back with any type of meals but in particular fatty meals. She has regular bowel habits otherwise. She has never been jaundiced before. Recent sonogram demonstrates significant cholelithiasis as well as a variety of liver and renal cysts Patient presents here with her significant other, who by coincidence had his gallbladder removed by me approximately 3 weeks ago. Chart was reviewed patient evaluated [facility] Medical History Constipation Abdominal pain Acquired skin tag Constipation by delayed colonic transit Family history of breast cancer in first degree relative Encounter for annual routine gynecological examination Screening for cervical cancer Screening-pulmonary TB Adult general medical exam COVID-19 Laboratory examination ordered as part of a routine general medical examination Overweight Potential exposure to STD Well woman exam with routine gynecological exam Surgical History No history of previous surgery Family History Mother Ovarian cancer Maternal Grandmother Breast cancer Social History Household Members: Significant Other Household Members Other:: daughter Housing: Apartment Alcohol intake: never Patient Tobacco Use Status: Never used Tobacco e-Cigarette/Vaping Use: Never Used service: No Current occupational status: employed 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 Sexual orientation: Straight/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 Gender identity: Female Cognitive needs: No Hearing needs: No Vision needs: Yes Female Reproductive History Menstrual Age of Menarche: 7 Physical Exam Vital Signs: Last Vital Signs Pulse 77 05/16/23 10:41 BP 151/97 H 05/16/23 10:41 BMI result Body Mass Index 33.9 Eyes Other: Anicteric Chest Other: Chest breath sounds bilaterally, HS 1 in 2 GI Other: Abdomen moderately corpulent, soft, benign Assessment & Plan Assessment & Plan (1) Recurrent biliary colic: Code(s): K80.50 - Calculus of bile duct without cholangitis or cholecystitis without obstruction Plan Risks, benefits, alternatives laparoscopic possible open cholecystectomy reviewed the patient and included but not limited to bleeding, infection, recurrence of symptoms, numbness, pain, scarring, bowel or bile duct injury or leak and the patient wishes to proceed. All questions answered. Arrangements were made for this. Coding Level of Care Code New Pt Level 5 (15804) Diagnoses Recurrent biliary colic K80.50
[2023-05-16 10:41] VITALS: BP 151/97; PULSE 77; BMI 33.9
== END 2023-05-16 10:53 | disposition home or self-care (01) ==
PROVIDERS: PCP Nurse Practitioner Primary Care; Visit Provider Surgery
DX: K80.50 Calculus of bile duct without cholangitis or cholecystitis without obstruction (principal)
CPT/HCPCS: 99204

== ENCOUNTER → 2023-05-16 10:33 | Outpatient (BNVA) | payer OTHER, SELFPAY | PROVIDERS: PCP Nurse Practitioner Primary Care; Visit Provider Surgery | DX: K80.50 Calculus of bile duct without cholangitis or cholecystitis without obstruction (principal) | CPT/HCPCS: 99202 ==

== ENCOUNTER 2023-05-31 15:23 | Outpatient (AMB) | payer OTHER, SELFPAY ==
[2023-05-31 15:25] VITALS: BP 114/70; BMI 33.9
--- NOTE | 2023-05-31 15:25 | A.OFFVIS_ITS ---
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 Family history of breast and ovarian cancer she is concerned about her risk for breast cancer. Currently undergoing care for gallbladder issues, has surgery pending. [facility], [facility] Medical History Constipation Abdominal pain Acquired skin tag Constipation by delayed colonic transit Family history of breast cancer in first degree relative Encounter for annual routine gynecological examination Screening for cervical cancer Screening-pulmonary TB Adult general medical exam COVID-19 Laboratory examination ordered as part of a routine general medical examination Overweight Potential exposure to STD Well woman exam with routine gynecological exam Surgical History No history of previous surgery Family History (Updated 05/31/23 @ 15:54 by April Delgadillo CNM) Mother Ovarian cancer Maternal Grandmother Breast cancer Social History Household Members: Significant Other Household Members Other:: daughter Housing: Apartment Alcohol intake: never Patient Tobacco Use Status: Never used Tobacco e-Cigarette/Vaping Use: Never Used service: No Current occupational status: employed 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 Sexual orientation: Straight/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 Gender identity: Female Cognitive needs: No Hearing needs: No Vision needs: Yes Female Reproductive History Menstrual Age of Menarche: 7 Review of Systems Const All systems reviewed & are unremarkable except as noted in HPI and below Endo Reports no additional complaints Physical Exam Vital Signs: Last Vital Signs BP 114/70 05/31/23 15:25 BMI result Body Mass Index 33.9 Const General: cooperative, healthy appearing and no acute distress Psych Appearance: well kempt Attitude: cooperative Thought process: Normal thought process present Assessment & Plan Assessment & Plan (1) Encounter to discuss test results: Code(s): Z71.2 - Person consulting for explanation of examination or test findings (2) Family history of breast cancer: Code(s): Z80.3 - Family history of malignant neoplasm of breast (3) Family history of ovarian cancer: Code(s): Z80.41 - Family history of malignant neoplasm of ovary Plan Discussed: Ultrasound findings were normal. Plan referral to have genetic inherited risk assessment completed. All of her questions and concerns were addressed to the best of my ability. She is agreeable to the plan of care. Annual exam scheduled for January 2024. This note is constructed using voice recognition software. While every effort has been made to ensure accuracy, pin maker errors may have been included. Orders: Referrals Breast Surgery Referral Z80.3 - Family history of malignant neoplasm of breast, Z80.41 - Family history of malignant neoplasm of ovary Coding Level of Care Code Est Pt Level 3 (55449) Diagnoses Encounter to discuss test results Z71.2 Family history of breast cancer Z80.3 Family history of ovarian cancer Z80.41
== END 2023-05-31 17:01 ==
LOC: HO.HWS 15:23
PROVIDERS: PCP Nurse Practitioner Primary Care; Visit Provider Advanced Practice Midwife
DX: Z71.2 Person consulting for explanation of examination or test findings (principal); Z80.3 Family history of malignant neoplasm of breast; Z80.41 Family history of malignant neoplasm of ovary
CPT/HCPCS: 99213

== ENCOUNTER → 2023-05-31 15:23 | Outpatient (BNVA) | payer OTHER, SELFPAY | PROVIDERS: PCP Nurse Practitioner Primary Care; Visit Provider Advanced Practice Midwife | DX: Z71.2 Person consulting for explanation of examination or test findings (principal); Z80.3 Family history of malignant neoplasm of breast; Z80.41 Family history of malignant neoplasm of ovary | CPT/HCPCS: 99212 ==

== ENCOUNTER 2023-06-01 06:44 | Day surgery (SDC) | payer OTHER, SELFPAY ==
--- NOTE | 2023-05-30 13:55 | HO.ANESPROP2 ---
Documented by User: Nery Barrow NP 05/30/23 13:56 HPI - Anesthesia Eval Consult details Narrative: 33yo F for Cholecystectomy Laparoscopic,possible open PMFSH Active Problems Active Problems: All Active Problems Recurrent biliary colic (Acute) Cholecystolithiasis (Acute) Past Medical History Medical History (Updated 06/01/23 @ 07:42 by Krista Littlejohn, RN) Liver cyst Constipation Abdominal pain Acquired skin tag Constipation by delayed colonic transit Family history of breast cancer in first degree relative Encounter for annual routine gynecological examination Screening for cervical cancer Screening-pulmonary TB Adult general medical exam COVID-19 Laboratory examination ordered as part of a routine general medical examination Overweight Potential exposure to STD Well woman exam with routine gynecological exam Family History Family History (Updated 05/31/23 @ 15:54 by April Delgadillo CNM) Mother Ovarian cancer Maternal Grandmother Breast cancer Surgical History Surgical History (Updated 06/01/23 @ 07:42 by Krista Littlejohn, BLAKE) Hx of tonsillectomy Social History Social History Household Members: Significant Other Household Members Other:: daughter Housing: Apartment Alcohol intake: never Patient Tobacco Use Status: Never used Tobacco e-Cigarette/Vaping Use: Never Used Use of substances other than those prescribed or required for medical reasons: No Are you DNR?: No Advance Directives: No Advance Directives Information Provided: Yes service: No Current occupational status: employed 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 orientation: Straight/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 Gender identity: Female Cognitive needs: No Hearing needs: No Vision needs: Yes Meds Allergies Allergy/AdvReac Type Severity Reaction Status Date / Time Penicillins [PENICILLINS] Allergy Intermediate rash Verified 06/01/23 07:43 Home Medications ?Medication ?Instructions ?Recorded ?Confirmed ?Last Taken ?Type polyethylene glycol 3350 17 17 g PO DAILY 12/22/22 06/01/23 Unknown History gram/dose oral powder (Miralax) Exam Pertinent Lab Results Pertinent Lab Results: Laboratory Tests 11/11/22 05/05/23 23:17 16:32 WBC 8.0 Hgb 13.2 Hct 39.0 Plt Count 200 D Sodium 137 Potassium 4.1 Chloride 107 Carbon Dioxide 24 BUN 10 Creatinine 0.75 Narrative Narrative: EKG 11/2022 Vent. Rate : 085 BPM Atrial Rate : 085 BPM P-R Int : 134 ms QRS Dur : 078 ms QT Int : 348 ms P-R-T Axes : 061 012 021 degrees QTc Int : 414 ms Normal sinus rhythm Normal ECG No previous ECGs available Assessment and Plan Assessment Anesthesia Assessment: Chart Reviewed Documented by User: Sixto Rodriguez MD 06/01/23 08:15 PMFSH Past Medical History Medical History (Updated 06/01/23 @ 07:42 by Krista Littlejohn RN) Liver cyst Constipation Abdominal pain Acquired skin tag Constipation by delayed colonic transit Family history of breast cancer in first degree relative Encounter for annual routine gynecological examination Screening for cervical cancer Screening-pulmonary TB Adult general medical exam COVID-19 Laboratory examination ordered as part of a routine general medical examination Overweight Potential exposure to STD Well woman exam with routine gynecological exam Family History Family History (Updated 05/31/23 @ 15:54 by April Delgadillo CNM) Mother Ovarian cancer Maternal Grandmother Breast cancer Family history of problems with anesthesia: No Surgical History Surgical History (Updated 06/01/23 @ 07:42 by Krista Littlejohn RN) Hx of tonsillectomy History of Problems with Anesthesia: No Social History Social History Household Members: Significant Other Household Members Other:: daughter Housing: Apartment Alcohol intake: never Patient Tobacco Use Status: Never used Tobacco e-Cigarette/Vaping Use: Never Used Use of substances other than those prescribed or required for medical reasons: No Are you DNR?: No Advance Directives: No Advance Directives Information Provided: Yes service: No Current occupational status: employed 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 orientation: Straight/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 Gender identity: Female Cognitive needs: No Hearing needs: No Vision needs: Yes Meds Allergies Allergy/AdvReac Type Severity Reaction Status Date / Time Penicillins [PENICILLINS] Allergy Intermediate rash Verified 06/01/23 07:43 Home Medications ?Medication ?Instructions ?Recorded ?Confirmed ?Last Taken ?Type polyethylene glycol 3350 17 17 g PO DAILY 12/22/22 06/01/23 Unknown History gram/dose oral powder (Miralax) Exam Airway Mallampati Class: I TM Dist: >3cm Neck ROM: Full Loose/Missing/Broken Teeth: No Heart: rrr Lungs: cta b/l Assessment and Plan Assessment Anesthesia Assessment: Anesthesia Plan Discussed Final Anesthetic Review Family History of Problems with Anesthesia: No History of Problems with Anesthesia: No NPO: Yes ASA Class: II Final Preanesthetic Review: No Changes in Pt Med Stat, Meds/Allgs Chart Reviewed, Consent Obtained/Reviewed and Anes Risks/Benef Reviewed Patient Risk: Low Procedure Risk: Intermediate Anesthetic Plan Anesthetic Plan: GA Disposition: Standard PACU
--- NOTE | 2023-05-31 11:02 | MHC.SHP ---
Pre-Procedural Eval Section A - 24 Hr Update-Section A only Date of Service: 05/31/23 The patient is an INPATIENT: No Changes since office visit: No Cold of Flu in the past 2 weeks, No New Medical Problems, No Changes in Medication and No Patient answered all questions Section B - Complete if H&P > 30 days Chief Complaint: Calculus of bile duct without cholangitis Allergies: Allergies Allergy/AdvReac Type Severity Reaction Status Date / Time Penicillins [PENICILLINS] Allergy Intermediate rash Verified 05/16/23 10:40 Plan I have reviewed the history and physical and performed a pertinent physical examination on my patient. No changes have occurred unless specified. Time Spent With Patient Time: Total time managing care of this patient today ____ minutes.
[2023-06-01] VITALS (10 sets, daily range): BP systolic 120–132; BP diastolic 73–87; PULSE 77–111; RESP 15–22; TEMP 36.3–36.8; O2SAT 93–100; BMI 32.9
[2023-06-01 07:30] LABS: UPreg QC Valid YES; Urine Pregnancy NEGATIVE (NEGATIVE)
[2023-06-01] MEDS: Lactated Ringers 1,000 ML 100 ML IVCONT (07:41)
--- NOTE | 2023-06-01 09:51 | W.PM.OPN ---
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 Large gallstone in the gallbladder. Findings: [] Patient brought to the operating room, placed on operative table in supine position, after adequate level of general anesthesia was induced, the patient's abdomen which was moderately corpulent was prepped and draped in usual sterile fashion. Using a supraumbilical curvilinear incision, [place] technique was used to insufflate the abdominal cavity to 15 mm of CO2. Upper midline and right subcostal ports were placed under direct laparoscopic view, and the patient placed in reverse Trendelenburg position and tilted to the left. Gallbladder was grasped using laparoscopic graspers and retracted superiorly and laterally. Omental adhesions swept off the gallbladder were its hilum was approached. Common bile duct was identified and preserved throughout the procedure. Cystic artery and cystic duct were each identified, circumferentially skeletonized, traced into the gallbladder directly and critical view obtained. Each was clipped proximally x2, distally x1, and transected. Gallbladder was then cauterized from the gallbladder fossa and placed in an Endo-Catch bag. Specimen was retrieved through the umbilical port. Abdominal cavity was copiously irrigated, and secured hemostasis. All ports removed under direct laparoscopic view. Wounds were closed in the following manner; umbilical wound is fascia reapproximated using interrupted 0 Vicryl sutures. Skin wounds were closed in subcuticular 4-0 Vicryl sutures followed by Steri-Strips and sterile dressings. Wounds were infiltrated 0.5% Marcaine at completion. Sponge, needle, and instrument counts were reported correct. Patient tolerated the procedure well and emerged from anesthesia stable condition. EBL minimal
[2023-06-01] MEDS: fentaNYL citrate/PF 100 MCG/2 ML VIAL 50 MCG IVPUSH (10:35)
[2023-06-01] MEDS: oxyCODONE HCl Immed Release 5 MG TABLET PO (10:42)
--- NOTE | 2023-06-01 12:04 | P.PNAN_ITS ---
Subjective Subjective Date of Service: 06/01/23 Interval history: DIFFICULT INTUBATION NOTE Taryn Montero underwent laparoscopic cholecystectomy today. On preop exam, she was anticipated to have a possibly difficult intubation bec of smallish mouth, full neck, and somewhat limited neck extension. I anticipated starting with a MAC 3 in full sniffing position, and then if that failed, going to a Krishnamurthy 2 in sword-swallowing position. After induction, with first placement in the mouth of the MAC 3, it was immediately apparent that that wouldn't work bec I couldn't achieve adequate sniffing position and there was limited jaw mobility bec of her anatomy. I made only a gentle attempt, and achieved no view at all of any glottic structures. That was immediately abandoned and switched to a ProView videolaryngoscope with MAC 3 (standard geometry) blade. Only a very limited view was obtained, so we switched to a Glidescope 3 hyperangulated blade. With that, a grade 2 view of a small glottis was obtained. Still, there was moderate difficulty achieving intubation of the trachea bec of difficulty maneuvering the tip of the ETT into the glottis, but it was successful on the third pass. At no time was there any difficulty with one hand mask ventilation. After intubation, the patient was given Decadron 4mg to hopefully ameliorate post op swelling and sore throat. At the end of surgery, extubation was uneventful and she had a clear airway on auscultation. I discussed with her the difficult intubation at length and gave her a copy of this progress note, with instructions to keep it forever, and to give it to any surgeon and/or anesth esiologist should she need their services in the future. My recommendations for future intubations: 1. Position the patient with a ramp under her back, and head in sniffing position. 2. Full preox. 3. Videolaryngoscope intubation with #3 hyperangulated blade. I do not think that she needs 'awake'/fiberoptic intubation, altho glidescope intubation assisted by a fibertoptic scope is another idea that would work well. If a fibertoptic scope is used, the patient should be given glycopyrollate first. Physical Exam Vital Signs: Vital Signs: Last Vital Signs Temp 98.2 F 06/01/23 11:16 Pulse 96 06/01/23 11:16 Resp 18 06/01/23 11:16 BP 127/87 06/01/23 11:16 Pulse Ox 99 06/01/23 11:16 O2 Del Method Room Air 06/01/23 11:31 O2 Flow Rate 2 06/01/23 10:26 BMI result Body Mass Index 32.9 Progress Note: A&P Time Spent With Patient Time: Total time managing care of this patient today ____ minutes. Procedures Date of Service Date of Service: 06/01/23
== END 2023-06-01 12:33 | disposition home or self-care (01) ==
PROVIDERS: Nurse Practitioner; PCP Nurse Practitioner Primary Care; Visit Provider Surgery
PROC: 0FT44ZZ Resection of Gallbladder, Percutaneous Endoscopic Approach (ICD-10-PCS; CPT 47562; principal; 2023-06-01 08:40)
DX: K80.10 Calculus of gallbladder with chronic cholecystitis without obstruction (principal); K82.8 Other specified diseases of gallbladder; K59.01 Slow transit constipation; K76.89 Other specified diseases of liver; N28.1 Cyst of kidney, acquired; Z88.0 Allergy status to penicillin; Z79.899 Other long term (current) drug therapy
CPT/HCPCS: 47562; 81025; 88304; J0736; J1100; J1596; J1885; J2250; J2405; J2704; J2795; J3010

== ENCOUNTER → 2023-06-01 06:44 | Outpatient (BNV) | payer OTHER, SELFPAY | PROVIDERS: PCP Nurse Practitioner Primary Care; Visit Provider Surgery | DX: K80.50 Calculus of bile duct without cholangitis or cholecystitis without obstruction (principal) | CPT/HCPCS: 47562 ==

== ENCOUNTER 2023-06-03 00:52 | Emergency (ER) | payer OTHER, SELFPAY ==
--- NOTE | ~2023-06-03 | CT_ITS ---
EXAMINATION: CT ABDOMEN AND PELVIS WITH CONTRAST CLINICAL INFORMATION: Pain. Status post laparoscopic cholecystectomy. COMPARISON: 07/20/2018. TECHNIQUE: Multidetector volumetric images were obtained from the superior aspect of the liver through the pubic symphysis following administration 85 mL of Omnipaque 350 intravenous contrast. Sagittal and coronal reformatted images were obtained on the technologist's workstation. Oral contrast: No This CT examination was performed using dose optimization techniques as appropriate, variously including the following: *Automated exposure control *Adjustment of mA and/or kV according to patient size (this includes techniques or standardized protocols for targeted exams where dose is matched to indication/reason for exam; i.e. extremities or head) *Use of iterative reconstruction technique DLP: 574 mGy-cm FINDINGS: LUNG BASES: There is atelectatic change and/or scarring at both lung bases. LIVER, GALLBLADDER, AND BILIARY TREE: Scattered mostly subcentimeter hepatic hypodensities are noted likely small cysts. There is no intrahepatic biliary duct dilatation. There has been a recent cholecystectomy. There is a small amount of free fluid within the gallbladder fossa. There is a small amount of free air along the liver. PANCREAS: Unremarkable. SPLEEN: Unremarkable. ADRENAL GLANDS: Unremarkable. KIDNEYS AND URETERS: The kidneys are normal in size, shape, and attenuation. No hydronephrosis, hydroureter, or calculi seen. No perinephric stranding. BLADDER: Unremarkable. GASTROINTESTINAL TRACT: The small and large bowel are unremarkable. The appendix is unremarkable. ABDOMINAL WALL: There is an umbilical region thickening and subcutaneous emphysema. LYMPH NODES: Normal. VASCULAR: Unremarkable. PELVIC VISCERA: Unremarkable. OSSEOUS STRUCTURES: Unremarkable. CT/CT abdomen pelvis w IV con IMPRESSION: 1. There is a small amount of free fluid within the gallbladder fossa. There is a small amount of free air along the liver. This is likely postoperative. 2. There is an umbilical region thickening and subcutaneous emphysema also likely postoperative. 3. There is atelectatic change and/or scarring at both lung bases. 4. No other significant abnormality seen. Fleischner guidelines were followed.
[2023-06-03 01:04] VITALS: BP 114/76; BP 135/85; PULSE 88; PULSE 90; RESP 16; TEMP 36.8; O2SAT 98; BMI 33.7
[2023-06-03 01:10] VITALS: BP 135/85; PULSE 90; RESP 16; TEMP 36.8; O2SAT 98
[2023-06-03 01:55] LABS: Basophils Percent Auto 0.1 % (0-2); Eosinophils Percent Auto 0.2 % (0-4); Hematocrit 35.4 % (37.0-47.0); Hemoglobin 12.1 g/dl (12.0-16.0); Imm Gran Abs Auto 0.03 X10*3/uL (0.00-0.03); Imm Gran Pct Auto 0.3 % (0.0-0.4); Lymphocytes Absolute Auto 1.7 X10*3/uL (1.2-4.9); Lymphocytes Percent Auto 16.7 % (20-40); MANUAL DIFF FLAG NO; Mean Corpuscular HGB Conc 34.2 g/dl (31.0-35.0); Mean Corpuscular Hemoglobin 29.7 pg (27.0-33.0); Mean Platelet Volume 10.7 fL (9.4-12.3); Monocytes Absolute Auto 0.4 X10*3/uL (0.1-1.2); Monocytes Percent Auto 3.6 % (2-11); Neutrophils Absolute Auto 8.2 x10*3/uL (2.0-8.3); Neutrophils Percent Auto 79.1 % (45-73); Platelet Count 266 X10*3/uL (160-400); Red Blood Count 4.07 X10*6/uL (4.20-5.50); Red Cell Distribution Width 13.1 % (11.0-16.0); White Blood Count 10.4 X10*3/uL (4.8-10.8)
[2023-06-03 02:11] LABS: Alanine Aminotransferase 53 U/L (0-31); Albumin Level 3.7 g/dL (3.5-5.0); Alkaline Phosphatase 50 U/L (39-117); Anion Gap 13 (12-20); Aspartate Amino Transferase 30 U/L (5-31); Bilirubin Direct 0.5 mg/dL (0.0-0.5); Bilirubin Total 1.6 mg/dL (0.0-1.0); Blood Urea Nitrogen 9 mg/dL (9-16); Calcium 8.5 mg/dL (8.4-10.2); Carbon Dioxide 23 mmol/L (22-29); Chloride 107 mmol/L (96-108); Estimated Glomerular Filt Rate > 60; Glucose Random 97 mg/dL (60-115); Potassium 3.9 mmol/L (3.3-5.1); Sodium 139 mmol/L (135-145); Total Protein 6.7 g/dL (6.5-8.0)
--- NOTE | 2023-06-03 02:26 | ED_ITS ---
HPI - General Adult General Chief complaint: Abdominal Pain Stated complaint: VOMITING Time Seen by Provider: 06/03/23 03:15 Source: patient Mode of arrival: ambulatory Limitations: no limitations History of Present Illness HPI narrative: Patient comes to the emergency room complaining of nausea and vomiting x1 tonight. Patient is 2 days status post laparoscopic cholecystectomy. Patient states that she started vomiting after she took the pain medication, Vicodin. Patient denies any diarrhea. Related Data Home Medications ?Medication ?Instructions ?Recorded ?Confirmed polyethylene glycol 3350 17 17 g PO DAILY 12/22/22 07/04/23 gram/dose oral powder (Miralax) Previous Rx's ?Medication ?Instructions ?Recorded norethindrone acetate 1.5 1 tab PO DAILY 21 days #63 tabs 02/02/23 mg-ethinyl estradiol 30 mcg tablet (Junel) docusate sodium 100 mg capsule 100 mg PO DAILY #30 caps 04/05/23 (Colace) sennosides 8.6 mg tablet (senna) 8.6 mg PO DAILY PRN constipation 04/05/23 14 days #14 tabs simethicone 180 mg capsule (Gas 180 mg PO DAILY #30 caps 04/05/23 Relief (simethicone)) dicyclomine 10 mg capsule 10 mg PO BID PRN abdominal pain 04/13/23 #30 caps acetaminophen 500 mg tablet 500 mg PO Q6H PRN fever or pain 06/03/23 #14 tabs ibuprofen 600 mg tablet 600 mg PO TID PRN fever or pain 06/03/23 #14 tabs ondansetron 4 mg disintegrating 4 mg PO Q6H PRN nausea and 06/03/23 tablet vomiting #14 tabs tramadol 50 mg tablet 50 mg PO BID PRN pain #6 tabs 06/03/23 famotidine 20 mg tablet 20 mg PO DAILY #90 tabs 07/03/23 Allergies Allergy/AdvReac Type Severity Reaction Status Date / Time Penicillins [PENICILLINS] Allergy Intermediate rash Verified 07/04/23 15:04 Review of Systems 2 Review of Systems: Constitutional : No Weight loss, No Fever, No Chills, No Night Sweats, No Fatigue, No Malaise ENT/Mouth : No Hearing loss, No Ear Pain, No Nasal Congestion, No Sinus Pain, No Hoarseness, No sore throat, No Rhinorrhea, No Swallowing Difficulty Eyes: No Eye Pain, No Swelling, No Redness, No Foreign Body, No Discharge, No Vision Changes Cardiovascular : No Chest Pain, No SOB, No Dyspnea on Exertion, No Orthopnea, No Edema, No Palpitations Respiratory : No Cough, No Sputum, No Wheezing, No Smoke Exposure, No Dyspnea Gastrointestinal : Complaining of nausea and vomiting No Diarrhea, No Constipation, complaining of localized abdominal pain at the incision sites Genitourinary : no irregular bleeding, No Dysuria, No Urinary Frequency, No Hematuria, No Urinary Incontinence, No Urgency, No Flank Pain, No Urinary Flow Changes, No Hesitancy Musculoskeletal : No joint pain, No Myalgias, No Joint Swelling Skin : No Skin Lesions, No rash Neuro : No Weakness, No Numbness, No Paresthesias, No Loss of Consciousness, No Dizziness, No Headache Psych : No Anxiety/Panic, No Depression, No SI/HI/AH/VH, No Social Issues, Heme/Lymph: No Bruising, No Bleeding,No Lymphadenopathy Endocrine : No Polyuria, No Polydipsia, No Temperature Intolerance PMFSH Past Medical History Medical History Liver cyst Constipation Abdominal pain Acquired skin tag Constipation by delayed colonic transit Family history of breast cancer in first degree relative Encounter for annual routine gynecological examination Screening for cervical cancer Screening-pulmonary TB Adult general medical exam COVID-19 Laboratory examination ordered as part of a routine general medical examination Overweight Potential exposure to STD Well woman exam with routine gynecological exam Surgical History Hx laparoscopic cholecystectomy (06/01/23) Hx of tonsillectomy Family History Family History Mother Ovarian cancer Maternal Grandmother Breast cancer Social History Social History Household Members: Significant Other Household Members Other:: daughter Housing: Apartment Alcohol intake: never Patient Tobacco Use Status: Never used Tobacco e-Cigarette/Vaping Use: Never Used service: No Current occupational status: employed 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 Oriented X3. No acute distress. Eyes: Pupils equal, round and reactive to light. ENT: Pharynx normal. Neck: Normal inspection. Neck supple. No lymph nodes noted. No crepitus CVS: Normal heart rate and rhythm. Pulses normal. Normal S1 and S2 Respiratory: No respiratory distress. Breath sounds normal. No Wheezing. No rales Abdomen: Soft , slightly tenderness to palpation over the abdomen there is near the incision sites. Skin: Skin warm and dry. Normal skin color. Normal skin turgor. Extremities: No lower extremity edema. No Lacerations. No Rash Neuro: Oriented X 3. No motor deficit. No sensory deficit. Moving all extremities. No slurred speech. CN 2 through 12 grossly intact Psych: calm, cooperative, normal affect Course Course Course Narrative: Patient receiving IV fluids, Zofran, morphine. -CT scan of the abdomen pending Medications Administered Discontinued Medications Generic Name Dose Route Start Last Admin Trade Name Freq PRN Reason Stop Dose Admin Sodium Chloride 1,000 mls @ 999 mls/hr 06/03/23 02:23 06/03/23 04:25 Ns IVCONT 06/03/23 03:23 Infused .Q1H1M ONE Infusion Iohexol 85 ml 06/03/23 02:56 06/03/23 02:58 Iohexol 350 Mg/Ml 100 Ml Infus..Btl IV 06/03/23 02:57 85 ml ONCE ONE Administration Morphine Sulfate 4 mg 06/03/23 02:23 06/03/23 02:42 Morphine Sulfate 4 Mg/Ml Cartridge IVPUSH 06/03/23 02:24 4 mg ONCE ONE Administration Protocol Ondansetron HCl 4 mg 06/03/23 02:23 06/03/23 02:42 Ondansetron Hcl 4 Mg/2 Ml Vial IVPUSH 06/03/23 02:24 4 mg ONCE ONE Administration Medical Decision Making Medical Decision Making MDM Narrative: -after IV fluids, patient states that she started to feel much better. -my interpretation of labs, Neuro hematology and chemistry. -my interpretation of CT scan: Small free air foci, likely secondary to surgery. Perforation not suspected -patient feeling better after IV fluids and Zofran. Differential Diagnosis Differential Diagnoses: The differential diagnosis associated with the presentation includes (Medication side-effect, gastroenteritis, SBO) Admission/Observation Consideration of admission/observation: Escalation of care including admission/observation considered (Given patient's recent history of surgery and symptoms, admission/observation was considered) Lab Data [facility] Lab Attestation statement: I reviewed the patient's lab results. 06/03/23 01:51 06/03/23 01:51 Labs: Lab Results 06/03/23 Range/Units 01:51 WBC 10.4 (4.8-10.8) X10*3/uL RBC 4.07 L (4.20-5.50) X10*6/uL Hgb 12.1 (12.0-16.0) g/dl Hct 35.4 L (37.0-47.0) % MCV 87.0 (80.0-98.0) fL MCH 29.7 (27.0-33.0) pg MCHC 34.2 (31.0-35.0) g/dl RDW 13.1 (11.0-16.0) % Plt Count 266 D (160-400) X10*3/uL MPV 10.7 (9.4-12.3) fL Immature Gran % (Auto) 0.3 (0.0-0.4) % Neut % (Auto) 79.1 H (45-73) % Lymph % (Auto) 16.7 L (20-40) % [place] % (Auto) 3.6 (2-11) % Eos % (Auto) 0.2 (0-4) % Baso % (Auto) 0.1 (0-2) % Lymph # (Auto) 1.7 (1.2-4.9) X10*3/uL [place] # (Auto) 0.4 (0.1-1.2) X10*3/uL Eos # (Auto) 0.0 (0.0-0.4) X10*3/uL Baso # (Auto) 0.0 (0.0-0.2) X10*3/uL Abs Immat Gran (auto) 0.03 (0.00-0.03) X10*3/uL Absolute Neuts (auto) 8.2 (2.0-8.3) x10*3/uL Absolute Nucleated RBC 0.000 (0.0-0.012) X10*3/uL Nucleated RBC % (auto) 0.0 (0.0-0.2) /100WBC Sodium 139 (135-145) mmol/L Potassium 3.9 (3.3-5.1) mmol/L Chloride 107 (96-108) mmol/L Carbon Dioxide 23 (22-29) mmol/L Anion Gap 13 (12-20) BUN 9 (9-16) mg/dL Creatinine 0.67 (0.5-1.4) mg/dL Estim Creat Clear Calc 104.0 Estimated GFR > 60 Random Glucose 97 (60-115) mg/dL Calcium 8.5 D (8.4-10.2) mg/dL Total Bilirubin 1.6 H (0.0-1.0) mg/dL Direct Bilirubin 0.5 (0.0-0.5) mg/dL AST 30 (5-31) U/L ALT 53 H (0-31) U/L Alkaline Phosphatase 50 (39-117) U/L Total Protein 6.7 (6.5-8.0) g/dL Albumin 3.7 (3.5-5.0) g/dL Beta HCG, Quant < 2 mIU/mL Independent Interpretation I performed an independent interpretation of an: CT Scan Radiology Impression Discussion of test interpretation with radiology: I have reviewed the radiologist's reading. Radiologist Impression: FINDINGS: LUNG BASES: There is atelectatic change and/or scarring at both lung bases. LIVER, GALLBLADDER, AND BILIARY TREE: Scattered mostly subcentimeter hepatic hypodensities are noted likely small cysts. There is no intrahepatic biliary duct dilatation. There has been a recent cholecystectomy. There is a small amount of free fluid within the gallbladder fossa. There is a small amount of free air along the liver. PANCREAS: Unremarkable. SPLEEN: Unremarkable. ADRENAL GLANDS: Unremarkable. KIDNEYS AND URETERS: The kidneys are normal in size, shape, and attenuation. No hydronephrosis, hydroureter, or calculi seen. No perinephric stranding. BLADDER: Unremarkable. GASTROINTESTINAL TRACT: The small and large bowel are unremarkable. The appendix is unremarkable. ABDOMINAL WALL: There is an umbilical region thickening and subcutaneous emphysema. LYMPH NODES: Normal. VASCULAR: Unremarkable. PELVIC VISCERA: Unremarkable. OSSEOUS STRUCTURES: Unremarkable. CT/CT abdomen pelvis w IV con IMPRESSION: 1. There is a small amount of free fluid within the gallbladder fossa. There is a small amount of free air along the liver. This is likely postoperative. 2. There is an umbilical region thickening and subcutaneous emphysema also likely postoperative. 3. There is atelectatic change and/or scarring at both lung bases. 4. No other significant abnormality seen. Fleischner guidelines were followed. Independent Historian Clinical information obtained from an independent historian. History obtained from or confirmed by: Spouse Critical Care Time Critical Care Time Critical Care Time: Yes Total Critical Care Time: 45 Attestation: I have personally provided critical care time. Time includes review of lab data, radiology results, discussion with consultants, and monitoring for potential decompensation. Intervention performed as documented. Discharge Plan Discharge Clinical Impression: Nausea & vomiting, Side effect of medication Patient Disposition: Home, Self-Care Instructions: Acute Nausea and Vomiting (ED) Additional Instructions: Please follow-up with your primary care physician tomorrow. If you have any worsening or new symptoms, please return to the emergency room or call 911 Prescriptions: New ondansetron 4 mg tablet,disintegrating 4 mg PO Q6H PRN (Reason: nausea and vomiting) Qty: 14 0RF tramadol 50 mg tablet 50 mg PO BID PRN (Reason: pain) Qty: 6 0RF acetaminophen 500 mg tablet 500 mg PO Q6H PRN (Reason: fever or pain) Qty: 14 0RF ibuprofen 600 mg tablet 600 mg PO TID PRN (Reason: fever or pain) Qty: 14 0RF No Action dicyclomine 10 mg capsule 10 mg PO BID PRN (Reason: abdominal pain) Qty: 30 0RF famotidine 20 mg tablet 20 mg PO DAILY Qty: 90 0RF docusate sodium [Colace] 100 mg capsule 100 mg PO DAILY Qty: 30 0RF sennosides [senna] 8.6 mg tablet 8.6 mg PO DAILY PRN (Reason: constipation) 14 Days Qty: 14 0RF simethicone [Gas Relief (simethicone)] 180 mg capsule 180 mg PO DAILY Qty: 30 0RF polyethylene glycol 3350 [Miralax] 17 gram/dose powder 17 g PO DAILY norethindrone ac-eth estradiol [ ()] 1.5-30 mg-mcg tablet 1 tab PO DAILY 21 Days Qty: 63 4RF Rx Instructions: skip placebo week for continuous dosing Interventions: ED Discharge Assessment Last Done: 06/03/23 05:46 Discharge Date/Time: 06/03/23 05:47 Print Language: [place]
[2023-06-03] MEDS: ondansetron HCL 4 MG/2 ML VIAL IVPUSH (02:42)
[2023-06-03] MEDS: 0.9 % Sodium Chloride 1,000 ML 999 ML IVCONT (02:42)
[2023-06-03] MEDS: Morphine Sulfate 4 MG/ML CARTRIDGE IVPUSH (02:42)
[2023-06-03 02:47] LABS: HCG Quantitative < 2 mIU/mL
[2023-06-03] MEDS: iohexoL 350 MG/ML 100 ML INFUS..BTL 85 ML IV (02:58)
[2023-06-03 03:45] VITALS: BP 131/80; PULSE 83; RESP 20; TEMP 37.1; O2SAT 96
[2023-06-03 05:46] VITALS: BP 131/80; PULSE 83; RESP 20; TEMP 37.1; O2SAT 96
== END 2023-06-03 05:47 | disposition home or self-care (01) ==
PROVIDERS: Emergency Provider Emergency Medicine; PCP Nurse Practitioner Primary Care
DX: R11.2 Nausea with vomiting, unspecified (principal); T40.2X5A Adverse effect of other opioids, initial encounter; Y92.9 Unspecified place or not applicable; Z98.890 Other specified postprocedural states
CPT/HCPCS: 36415; 74177; 80053; 82248; 84702; 85025; 96361; 96374; 96375; 99284; J2270; J2405; Q9967

== ENCOUNTER 2023-06-08 00:38 | Emergency (ER) | payer OTHER, SELFPAY ==
[2023-06-08 00:50] VITALS: BP 128/79; PULSE 81; RESP 16; TEMP 36.9; O2SAT 98; BMI 32.3
[2023-06-08 05:18] VITALS: BP 138/92; PULSE 77; RESP 16; TEMP 36.9; O2SAT 77
[2023-06-08 06:31] VITALS: BP 126/78; PULSE 76; RESP 20; TEMP 37.1; O2SAT 99
[2023-06-08 07:52] LABS: MANUAL DIFF FLAG NO
--- NOTE | 2023-06-08 07:52 | PC.NURSE ---
labs obtained, pt resting quietly, denies any pain or needs at this time.
[2023-06-08 07:54] LABS: Basophils Percent Auto 0.3 % (0-2); Eosinophils Absolute Auto 0.2 X10*3/uL (0.0-0.4); Eosinophils Percent Auto 2.2 % (0-4); Hematocrit 34.8 % (37.0-47.0); Hemoglobin 11.9 g/dl (12.0-16.0); Imm Gran Abs Auto 0.02 X10*3/uL (0.00-0.03); Imm Gran Pct Auto 0.3 % (0.0-0.4); Lymphocytes Absolute Auto 2.8 X10*3/uL (1.2-4.9); Lymphocytes Percent Auto 36.3 % (20-40); Mean Corpuscular HGB Conc 34.2 g/dl (31.0-35.0); Mean Corpuscular Hemoglobin 30.2 pg (27.0-33.0); Mean Corpuscular Volume 88.3 fL (80.0-98.0); Monocytes Absolute Auto 0.4 X10*3/uL (0.1-1.2); Monocytes Percent Auto 5.6 % (2-11); Neutrophils Absolute Auto 4.2 x10*3/uL (2.0-8.3); Neutrophils Percent Auto 55.3 % (45-73); Platelet Count 274 X10*3/uL (160-400); Red Blood Count 3.94 X10*6/uL (4.20-5.50); Red Cell Distribution Width 12.8 % (11.0-16.0); White Blood Count 7.7 X10*3/uL (4.8-10.8)
--- NOTE | 2023-06-08 07:57 | ED.WOUNDLAC ---
HPI - Wound/Laceration General Chief Complaint: Wound/Laceration Stated Complaint: stiches bleeding postop Time Seen by Provider: 06/08/23 06:44 Source: patient Mode of arrival: ambulatory Limitations: no limitations History of Present Illness HPI narrative: 33 year old female s/p lap bebeto by Dr. Cain on 06/01/23 presenting for concerns of a small amount of blood on umbilical steri strip. She noted it last night and got worried so she wanted to come in for reassurance. She thinks it started bleeding after she sat up at some point last night. No a/c pain, fevers, chills, abd pain, nausea, vomiting, trama, cp or sob. Related Data Home Medications ?Medication ?Instructions ?Recorded ?Confirmed polyethylene glycol 3350 17 17 g PO DAILY 12/22/22 06/01/23 gram/dose oral powder (Miralax) Previous Rx's ?Medication ?Instructions ?Recorded norethindrone acetate 1.5 1 tab PO DAILY 21 days #63 tabs 02/02/23 mg-ethinyl estradiol 30 mcg tablet (Junel) docusate sodium 100 mg capsule 100 mg PO DAILY #30 caps 04/05/23 (Colace) famotidine 20 mg tablet 20 mg PO DAILY #90 tabs 04/05/23 sennosides 8.6 mg tablet (senna) 8.6 mg PO DAILY PRN constipation 04/05/23 14 days #14 tabs simethicone 180 mg capsule (Gas 180 mg PO DAILY #30 caps 04/05/23 Relief (simethicone)) dicyclomine 10 mg capsule 10 mg PO BID PRN abdominal pain 04/13/23 #30 caps hydrocodone 5 mg-acetaminophen 325 1 tab PO Q4-6H PRN pain #30 tabs 06/01/23 mg tablet acetaminophen 500 mg tablet 500 mg PO Q6H PRN fever or pain 06/03/23 #14 tabs ibuprofen 600 mg tablet 600 mg PO TID PRN fever or pain 06/03/23 #14 tabs ondansetron 4 mg disintegrating 4 mg PO Q6H PRN nausea and 06/03/23 tablet vomiting #14 tabs tramadol 50 mg tablet 50 mg PO BID PRN pain #6 tabs 06/03/23 Allergies Allergy/AdvReac Type Severity Reaction Status Date / Time Penicillins [PENICILLINS] Allergy Intermediate rash Verified 06/08/23 00:51 Review of Systems Review of Systems: Yes all other systems are reviewed and are negative [facility] Past Medical History Attestation statement: The following information was validated with the patient. Source: old records reviewed and nursing notes reviewed Medical History Liver cyst Constipation Abdominal pain Acquired skin tag Constipation by delayed colonic transit Family history of breast cancer in first degree relative Encounter for annual routine gynecological examination Screening for cervical cancer Screening-pulmonary TB Adult general medical exam COVID-19 Laboratory examination ordered as part of a routine general medical examination Overweight Potential exposure to STD Well woman exam with routine gynecological exam Surgical History Hx of tonsillectomy Family History Family History Mother Ovarian cancer Maternal Grandmother Breast cancer Social History Social History Household Members: Significant Other Household Members Other:: daughter Housing: Apartment Alcohol intake: never Patient Tobacco Use Status: Never used Tobacco Smoked in Last 30 Days: No e-Cigarette/Vaping Use: Never Used Use of substances other than those prescribed or required for medical reasons: No Advance Directives: No Advance Directives Information Provided: No Do you have a plan to hurt others: No Plan Patient : No service: No Current occupational status: employed 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 Oriented X3.? No acute distress.? Head: Normocephalic, atraumatic, no step-offs or deformities Eyes: Pupils equal, round and reactive to light.? Neck: Normal inspection.? Neck supple.? CVS: Normal heart rate and rhythm.? Pulses normal.? Respiratory: No respiratory distress.? Breath sounds normal.? Abdomen: Soft and nontender.? Skin: Skin warm and dry.? Normal skin color.? Normal skin turgor.? + 3 lap incisions to abd very scant amount of dry blood noted to umbilical site. others clean dry and intact. Normal BS throughout. Extremities: No lower extremity edema.? No calf ttp. 5/5 strength to bilateral upper and lower extremities Back: No midline tenderness, no C-spine tenderness, full range of motion, no CVA tenderness bilaterally Neuro: Oriented X 3.? No motor deficit.? No sensory deficit. CN 2-12 intact Course Reevaluation(s) Reevaluation #1: CBC unremarkable. Normocytic anemia noted. No signs of hypovolemic shock no hypotension, tachycardia. General surgeon Dr. Cain evaluated patient agrees this is normal healing. Advised normal follow-up in his office. Patient has an appointment on Monday. Educated patient on diagnosis and treatment plan, answered all question, patient verbalizes understanding. At this time patient will be discharged home, advised to return with new or worsening symptoms. Educated on worrisome signs and symptoms and when to return. At this time I feel comfortable discharge home. Time: 08:05 Medical Decision Making Medical Decision Making MDM Narrative: 0800 33-year-old female presents for concerns that her umbilical surgical site had a little blood last night. She wanted to come in for reassurance. Skin warm and dry.? Normal skin color.? Normal skin turgor.? + 3 lap incisions to abd very scant amount of dry blood noted to umbilical site. others clean dry and intact. Normal BS throughout. History and physical exam consistent with normal healing, no signs of dehiscence, active bleeding. Unlikely infection. Unlikely acute blood loss anemia. No abdominal pain, unlikely intra-abdominal complications. Plan at this time will reach out to the surgeon to lay eyes on patient. Differential Diagnosis Differential Diagnoses: The differential diagnosis associated with the presentation includes Skin warm and dry.? Normal skin color.? Normal skin turgor.? + 3 lap incisions to abd very scant amount of dry blood noted to umbilical site. others clean dry and intact. Normal BS throughout. Admission/Observation Consideration of admission/observation: Escalation of care including admission/observation considered Unlikely Consult Healthcare Provider Management of the patient was discussed with: Mirror Silverer (surgery ) Lab Data MDM Lab Attestation statement: I reviewed the patient's lab results. 06/08/23 07:49 06/08/23 07:49 Labs: Lab Results 06/08/23 Range/Units 07:49 WBC 7.7 (4.8-10.8) X10*3/uL RBC 3.94 L (4.20-5.50) X10*6/uL Hgb 11.9 L (12.0-16.0) g/dl Hct 34.8 L (37.0-47.0) % MCV 88.3 (80.0-98.0) fL MCH 30.2 (27.0-33.0) pg MCHC 34.2 (31.0-35.0) g/dl RDW 12.8 (11.0-16.0) % Plt Count 274 (160-400) X10*3/uL MPV 11.0 (9.4-12.3) fL Immature Gran % (Auto) 0.3 (0.0-0.4) % Neut % (Auto) 55.3 (45-73) % Lymph % (Auto) 36.3 (20-40) % [place] % (Auto) 5.6 (2-11) % Eos % (Auto) 2.2 (0-4) % Baso % (Auto) 0.3 (0-2) % Lymph # (Auto) 2.8 (1.2-4.9) X10*3/uL [place] # (Auto) 0.4 (0.1-1.2) X10*3/uL Eos # (Auto) 0.2 (0.0-0.4) X10*3/uL Baso # (Auto) 0.0 (0.0-0.2) X10*3/uL Abs Immat Gran (auto) 0.02 (0.00-0.03) X10*3/uL Absolute Neuts (auto) 4.2 (2.0-8.3) x10*3/uL Absolute Nucleated RBC 0.000 (0.0-0.012) X10*3/uL Nucleated RBC % (auto) 0.0 (0.0-0.2) /100WBC External Record Review External record reviewed: Inpatient record, Office record, Outpatient record, Prior outpatient labs, Prior outpatient radiology, Primary care record and Outside ED record Chronic Conditions Patient?s care impacted by: Other (s/p vijay tate ) Discharge Plan Discharge Clinical Impression: Healing wound Patient Disposition: Home, Self-Care Additional Instructions: Take your medications as prescribed. If you were prescribed antibiotics today, it is important that you take your medication to their entirety, do not skip any doses, do not finish them early. Follow-up with your primary care provider this week. Return to the emergency department with new or worsening symptoms. In case of emergency call 911 Prescriptions: No Action dicyclomine 10 mg capsule 10 mg PO BID PRN (Reason: abdominal pain) Qty: 30 0RF hydrocodone-acetaminophen 5-325 mg tablet 1 tab PO Q4-6H PRN (Reason: pain) Qty: 30 0RF Rx Instructions: Partial Fill upon patient request. ondansetron 4 mg tablet,disintegrating 4 mg PO Q6H PRN (Reason: nausea and vomiting) Qty: 14 0RF tramadol 50 mg tablet 50 mg PO BID PRN (Reason: pain) Qty: 6 0RF acetaminophen 500 mg tablet 500 mg PO Q6H PRN (Reason: fever or pain) Qty: 14 0RF ibuprofen 600 mg tablet 600 mg PO TID PRN (Reason: fever or pain) Qty: 14 0RF docusate sodium [Colace] 100 mg capsule 100 mg PO DAILY Qty: 30 0RF sennosides [senna] 8.6 mg tablet 8.6 mg PO DAILY PRN (Reason: constipation) 14 Days Qty: 14 0RF simethicone [Gas Relief (simethicone)] 180 mg capsule 180 mg PO DAILY Qty: 30 0RF famotidine 20 mg tablet 20 mg PO DAILY Qty: 90 0RF polyethylene glycol 3350 [Miralax] 17 gram/dose powder 17 g PO DAILY norethindrone ac-eth estradiol [ ()] 1.5-30 mg-mcg tablet 1 tab PO DAILY 21 Days Qty: 63 4RF Rx Instructions: skip placebo week for continuous dosing Referrals: Maurisio Lilly FNP [Primary Care Provider] - 3 days Stand Alone Forms: Work/School Release Print Language: Estonian
[2023-06-08 08:08] LABS: Alanine Aminotransferase 57 U/L (0-31); Albumin Level 3.6 g/dL (3.5-5.0); Alkaline Phosphatase 64 U/L (39-117); Anion Gap 13 (12-20); Aspartate Amino Transferase 22 U/L (5-31); Bilirubin Total 1.7 mg/dL (0.0-1.0); Blood Urea Nitrogen 8 mg/dL (9-16); Calcium 8.9 mg/dL (8.4-10.2); Carbon Dioxide 20 mmol/L (22-29); Chloride 109 mmol/L (96-108); Creatinine Clr Calc Pharmacy 97.2; Estimated Glomerular Filt Rate > 60; Glucose Random 78 mg/dL (60-115); Potassium 3.8 mmol/L (3.3-5.1); Sodium 138 mmol/L (135-145); Total Protein 6.6 g/dL (6.5-8.0)
[2023-06-08 08:10] VITALS: BP 124/86; PULSE 77; RESP 16; TEMP 36.8; O2SAT 97
== END 2023-06-08 08:12 | disposition home or self-care (01) ==
PROVIDERS: Physician Assistant; Emergency Provider Emergency Medicine; PCP Nurse Practitioner Primary Care
DX: Z48.00 Encounter for change or removal of nonsurgical wound dressing (principal); Z79.899 Other long term (current) drug therapy
CPT/HCPCS: 36415; 80053; 85025; 99283; 99284

== ENCOUNTER 2023-06-12 10:35 | Outpatient (AMB) | payer OTHER, SELFPAY ==
--- NOTE | 2023-06-12 10:46 | MHC.OFFVIS ---
Intake Visit Reasons: S/P lap bebeto Intake Note: Patient here s/p lap bebeto. Reports incisions healing well. Patient c/o: mild tenderness on abd. No longer taking rx pain meds. 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 Sensory with her significant other. Aside from incisional discomfort which is improving, she is otherwise doing well. She has starting a diet. He is having regular bowel habits. She is increasing her activity level [facility] Medical History Liver cyst Constipation Abdominal pain Acquired skin tag Constipation by delayed colonic transit Family history of breast cancer in first degree relative Encounter for annual routine gynecological examination Screening for cervical cancer Screening-pulmonary TB Adult general medical exam COVID-19 Laboratory examination ordered as part of a routine general medical examination Overweight Potential exposure to STD Well woman exam with routine gynecological exam Surgical History Hx laparoscopic cholecystectomy (06/01/23) Hx of tonsillectomy Family History Mother Ovarian cancer Maternal Grandmother Breast cancer Social History Household Members: Significant Other Household Members Other:: daughter Housing: Apartment Alcohol intake: never Patient Tobacco Use Status: Never used Tobacco e-Cigarette/Vaping Use: Never Used service: No Current occupational status: employed Current occupation: [employer] Sexual orientation: Straight/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 Gender identity: Female Cognitive needs: No Hearing needs: No Vision needs: Yes Female Reproductive History Menstrual Age of Menarche: 7 Physical Exam Eyes Other: Anicteric GI Other: Abdomen is soft. All wounds clean dry and intact healing well Assessment & Plan Assessment & Plan (1) Status post laparoscopic cholecystectomy: Code(s): Z90.49 - Acquired absence of other specified parts of digestive tract Category: Medical Plan Patient has been given local wound instructions, and will follow-up p.r.n.. All questions answered Coding Level of Care Code Global (18711) Diagnoses Status post laparoscopic cholecystectomy Z90.49
== END 2023-06-12 10:59 | disposition home or self-care (01) ==
PROVIDERS: PCP Nurse Practitioner Primary Care; Visit Provider Surgery
DX: Z90.49 Acquired absence of other specified parts of digestive tract (principal)
CPT/HCPCS: 99024

== ENCOUNTER → 2023-06-12 10:35 | Outpatient (BNVA) | payer OTHER, SELFPAY | PROVIDERS: PCP Nurse Practitioner Primary Care; Visit Provider Surgery | DX: Z48.815 Encounter for surgical aftercare following surgery on the digestive system (principal); Z90.49 Acquired absence of other specified parts of digestive tract | CPT/HCPCS: 99212 ==

== ENCOUNTER 2023-07-04 14:59 | Outpatient (AMB) | payer OTHER, SELFPAY ==
--- NOTE | 2023-07-04 15:00 | A.OFFVIS_ITS ---
Intake Visit Reasons: Wound check, surgical site Intake Note: Patient scheduled today's visit as urgent. C/o umbilical site feels tender and there is a small opening that oozes clear discharge. Hx Lap bebeto June 01, 2023. Deportation Examiner Required: No Accompanied by: Sister Allergies Penicillins [PENICILLINS] Allergy (Intermediate, Verified 07/04/23 15:04) rash HPI Comments Details: Patient presents for evaluation of the umbilical port site status post laparoscopic cholecystectomy. She has had some drainage from here. PFSH Medical History Liver cyst Constipation Abdominal pain Acquired skin tag Constipation by delayed colonic transit Family history of breast cancer in first degree relative Encounter for annual routine gynecological examination Screening for cervical cancer Screening-pulmonary TB Adult general medical exam COVID-19 Laboratory examination ordered as part of a routine general medical examination Overweight Potential exposure to STD Well woman exam with routine gynecological exam Surgical History Hx laparoscopic cholecystectomy (06/01/23) Hx of tonsillectomy Family History Mother Ovarian cancer Maternal Grandmother Breast cancer Social History Household Members: Significant Other Household Members Other:: daughter Housing: Apartment Alcohol intake: never Patient Tobacco Use Status: Never used Tobacco e-Cigarette/Vaping Use: Never Used service: No Current occupational status: employed 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 All umbilical wound right lateral aspect as a suture being extruded which was uneventfully removed. Bacitracin sterile dressing were applied. Remaining port sites all clean dry and intact healing well Assessment & Plan Assessment & Plan (1) Postop check: Code(s): Z09 - Encounter for follow-up examination after completed treatment for conditions other than malignant neoplasm Category: Medical (2) Postoperative stitch abscess: Code(s): T81.41XA - Infection following a procedure, superficial incisional surgical site, initial encounter Category: Medical Plan Patient has been given local instructions, and will follow-up p.r.n.. All questions answered. Coding Level of Care Code Global (01520) Diagnoses Postop check Z09 Postoperative stitch abscess T81.41XA
== END 2023-07-04 15:16 | disposition home or self-care (01) ==
PROVIDERS: PCP Nurse Practitioner Primary Care; Visit Provider Surgery
DX: Z09 Encounter for follow-up examination after completed treatment for conditions other than malignant neoplasm (principal); T81.41XA Infection following a procedure, superficial incisional surgical site, initial encounter
CPT/HCPCS: 99024

== ENCOUNTER → 2023-07-04 14:59 | Outpatient (BNVA) | payer OTHER, SELFPAY | PROVIDERS: PCP Nurse Practitioner Primary Care; Visit Provider Surgery | DX: Z09 Encounter for follow-up examination after completed treatment for conditions other than malignant neoplasm (principal); T81.41XD Infection following a procedure, superficial incisional surgical site, subsequent encounter | CPT/HCPCS: 99212 ==

== ENCOUNTER 2024-01-10 09:39 | Outpatient (REF) | payer OTHER, SELFPAY ==
[2024-01-10 13:08] LABS: MANUAL DIFF FLAG NO
[2024-01-10 13:19] LABS: Basophils Percent Auto 0.3 % (0-2); Eosinophils Absolute Auto 0.1 X10*3/uL (0.0-0.4); Eosinophils Percent Auto 1.5 % (0-4); Hematocrit 42.5 % (37.0-47.0); Hemoglobin 13.8 g/dl (12.0-16.0); Imm Gran Abs Auto 0.02 X10*3/uL (0.00-0.03); Imm Gran Pct Auto 0.3 % (0.0-0.4); Lymphocytes Absolute Auto 2.9 X10*3/uL (1.2-4.9); Mean Corpuscular HGB Conc 32.5 g/dl (31.0-35.0); Mean Corpuscular Hemoglobin 29.2 pg (27.0-33.0); Mean Corpuscular Volume 89.9 fL (80.0-98.0); Monocytes Absolute Auto 0.4 X10*3/uL (0.1-1.2); Monocytes Percent Auto 5.5 % (2-11); Neutrophils Percent Auto 53.4 % (45-73); Platelet Count 314 X10*3/uL (160-400); Red Blood Count 4.73 X10*6/uL (4.20-5.50); Red Cell Distribution Width 13.1 % (11.0-16.0); White Blood Count 7.5 X10*3/uL (4.8-10.8)
[2024-01-10 13:45] LABS: Alanine Aminotransferase 19 U/L (0-31); Albumin Level 3.9 g/dL (3.5-5.0); Alkaline Phosphatase 57 U/L (39-117); Anion Gap 11 (12-20); Aspartate Amino Transferase 21 U/L (5-31); Bilirubin Total 1.3 mg/dL (0.0-1.0); Blood Urea Nitrogen 8 mg/dL (9-16); Calcium 9.2 mg/dL (8.4-10.2); Carbon Dioxide 22 mmol/L (22-29); Chloride 110 mmol/L (96-108); Cholesterol 186 mg/dL (<200); Estimated Glomerular Filt Rate > 60; Glucose Fasting 81 mg/dL (60-99); HDL Cholesterol 60 mg/dL (>40); Iron 107 mcg/dL (30-160); LDL Cholesterol Calculated 107 mg/dL (<100); Percent Iron Saturation 28 % (15-50); Potassium 4.1 mmol/L (3.3-5.1); Sodium 139 mmol/L (135-145); TSH reflex Free T4 1.41 uIU/mL (0.32-4.0); Total Iron Binding Capacity 376 mcg/dL (228-428); Total Protein 7.3 g/dL (6.5-8.0); Triglycerides 99 mg/dL (<150); Unsaturated Iron Binding 269 ug/dL; Vitamin D 25-OH Total 34.4 ng/mL (>30)
== END 2024-01-10 09:40 | disposition home or self-care (01) ==
LOC: HO.HMGCLDS 09:39
PROVIDERS: PCP Internal Medicine; Visit Provider Internal Medicine
DX: D64.9 Anemia, unspecified (principal); R74.8 Abnormal levels of other serum enzymes; E55.9 Vitamin D deficiency, unspecified; R12 Heartburn; Z83.49 Family history of other endocrine, nutritional and metabolic diseases
CPT/HCPCS: 36415; 80053; 80061; 82306; 83540; 84443; 85025; 96127; 99212

== ENCOUNTER 2024-01-10 09:39 | Outpatient (AMB) | payer OTHER, SELFPAY ==
--- NOTE | 2024-01-10 09:46 | A.OFFPC_ITS ---
Vital Signs 01/10/24 09:54 Height 4 ft 11 in Weight 174 lb BMI 35.1 BP 124/80 Blood Pressure Location Rt brachial Position Sitting Pulse 81 Pulse Source Pulse Oximeter Pulse Oximetry (%) 97 Oxygen Delivery Method Room Air Intake Visit Reasons: transfer from [facility] Intake Note: Pt is here today transfer from [facility]/ Allergies Penicillins [PENICILLINS] Allergy (Intermediate, Verified 01/10/24 10:38) rash Medication List - Last Reconciled 01/10/24 by Elizabeth Sandy MD norethindrone ac-eth estradiol 1.5-30 mg-mcg () 1 tab PO DAILY 21 days Tobacco use date assessed: 01/10/24 Dental Screening Dental Screen Date: 01/10/24 Did you have a dental visit in the last 12 months?: No Did you have a dental problem in the last 6 months where you did not have access to dental care?: No Was dental information given to patient?: Patient has dentist HPI transfer from [facility] HPI Details The patient is a 33-year-old female, here today to establish with new CP. She presents with concerns regarding her anemia, chest pain, weight gain, and potential post-op symptoms following cholecystectomy. The anemia was noted in the recent past with a hemoglobin level slightly lower than normal at 11.9 g/dL. There has been no corresponding menstrual bleeding. The historical anemia didn't have an apparent cause identified, and the patient requests further evaluation. She underwent laparoscopic cholecystectomy in July for cholelithiasis . Since the surgery, the patient reports weight gain and episodic abdominal pain potentially related to dietary indiscretions, particularly the consumption of fatty foods. The chest pain described does not resemble heartburn but rather a tightening, and it occurs mostly when breathing. The patient has a relevant family history of ovarian cancer and hypothyroidism in her mother, and breast cancer in her grandmother, raising her concerns about genetic predispositions. [facility] Medical History (Updated 01/14/24 @ 19:19 by Elizabeth Sandy MD) Family history of hypothyroidism Liver cyst Constipation Abdominal pain Acquired skin tag Constipation by delayed colonic transit Family history of breast cancer in first degree relative Encounter for annual routine gynecological examination Screening for cervical cancer Screening-pulmonary TB Adult general medical exam COVID-19 Laboratory examination ordered as part of a routine general medical examination Overweight Potential exposure to STD Well woman exam with routine gynecological exam Surgical History Hx laparoscopic cholecystectomy (06/01/23) Hx of tonsillectomy Family History Mother Ovarian cancer Maternal Grandmother Breast cancer Social History Household Members: Significant Other Household Members Other:: daughter Housing: Apartment Alcohol intake: never Patient Tobacco Use Status: Never used Tobacco e-Cigarette/Vaping Use: Never Used service: No Current occupational status: employed Current occupation: [employer] Sexual orientation: Straight/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 Gender identity: Female Cognitive needs: No Hearing needs: No Vision needs: Yes Female Reproductive History Menstrual Age of Menarche: 7 Questionnaire PHQ-9 Over the last 2 weeks, how often have you been bothered by any of the following problems? 1. Little interest or pleasure in doing things: not at all 2. Feeling down, depressed, or hopeless: not at all 3. Trouble falling or staying asleep, or sleeping too much: several days 4. Feeling tired or having little energy: several days 5. Poor appetite or overeating: several days 6. Feeling bad about yourself - or that you are a failure or have let yourself or your family down: not at all 7. Trouble concentrating on things, such as reading the newspaper or watching television: not at all 8. Moving or speaking so slowly that other people could have noticed. Or the opposite - being so fidgety or restless that you have been moving around a lot more than usual: not at all 9. Thoughts that you would be better off or of hurting yourself in some way: not at all Total score: 3 Depression Screening Interpretation: Negative Depression Screening Done: Yes 60987 - PHQ-9 Billing: Yes Source: Developed by Drs. Doni Piedra, Nery Shields, Rg Schneider and colleagues, with an educational flakito from [employer]. Thrive Questionnaire Date Thrive assessed: 01/10/24 I am a: Patient What is your living situation today?: I have a steady place to live Within the past 12 months, did the food you bought not last and you didn't have the money to get more?: Often true Within the past 12 months, did you worry whether your food would run out before you got money to buy more?: Often true Do you have trouble paying for medicines?: No Do you have trouble getting transportation to medical appointments?: No Do you have trouble paying your heating and electricity bill?: No Do you have trouble taking care of your child, family member or friend?: No Do you have trouble with day-to-day activities such as bathing, preparing meals, shopping, managing finances, etc.?: No Are you currently unemployed and looking for a job?: No Are you interested in more education?: No Please select the resources that you would like help with: None Currently or been in a relationship where the following occur: I choose not to answer THRIVE Score: 2 AUDIT C Alcohol Use Questionnaire (AUDIT-C) 1. How often do you have a drink containing alcohol?: Never Total Score: 0 SCOTTY-7 AMB Questionnaire SCOTTY-7 Date SCOTTY - 7 assessed: 01/10/24 Feeling nervous, anxious, or on edge: 0 = Not at all Not being able to stop or control worryin = Not at all Worrying too much about different things: 0 = Not at all Trouble relaxin = Not at all Being so restless that it is hard to sit still: 0 = Not at all Becoming easily annoyed or irritable: 1 = Several days Feeling afraid as if something awful might happen: 0 = Not at all Total SCOTTY-7 score (0-4 normal; 5-9 mild; 10-14 moderate; 15-21 severe): 1 Source: Developed by Drs. Doni Piedra, Nery Shields, Rg Schneider and colleagues, with an educational flakito from [employer]. SCOTTY-7 Assessment Billing SCOTTY-7 Assessment Tool: SCOTTY-7 Assessment 37957 Review of Systems Const Denies body aches, Denies fatigue, Denies fever(s), Denies headache(s) and Denies weakness Eyes Denies change in vision ENT Denies dizziness, Denies headache(s), Denies nasal congestion, Denies nasal discharge and Denies sore throat Card Denies lightheadedness, Denies palpitations and Denies dyspnea Resp Denies chest congestion, Denies cough, Denies dyspnea and Denies wheezing GI Reports as per HPI, Denies melena, Denies hematochezia and Denies change in bowel habits Denies hematuria, Denies urinary frequency, Denies dysuria and Denies urinary urgency Musc Reports no additional complaints Skin/Breast Denies breast pain, Denies breast mass, Denies lesions and Denies rash Neuro Denies dizziness, Denies headache(s) and Denies weakness Psych Reports no additional complaints Endo Denies fatigue, Denies polydipsia, Denies polyuria and Denies palpitations Herminio/Lymph Denies easy bruising Aller/Immun Denies seasonal rhinorrhea and Denies wheezing Physical exam (Primary Care) Vital Signs: Last Vital Signs Pulse 81 01/10/24 09:54 BP 124/80 01/10/24 09:54 Pulse Ox 97 01/10/24 09:54 Oxygen Delivery Method Room Air 01/10/24 09:54 BMI result Body Mass Index 35.1 Tobacco/Smoking Status: Tobacco use Status Tobacco use date assessed 01/10/24 01/10/24 09:58 Patient Tobacco Use Status Never used Tobacco 01/10/24 09:47 e-Cigarette/Vaping Use Never Used 01/10/24 09:47 PHQ-9: PHQ-9 Score PHQ-9: Total score 3 01/10/24 10:56 Depression Screening Interpretation: Negative Thrive Assessment: Date of Thrive Assessment Date Thrive assessed 01/10/24 01/10/24 09:58 Currently or been in a relationship where the following occur: I choose not to answer Const General: no acute distress and alert Orientation/consciousness: patient oriented x3 HENMT Ears: external ears normal General nose exam: Normal external nose present Mouth: Normal oral and palatal mucosa present, oropharynx normal and moist mucous membranes Eyes General: appearance normal, both eyes and all related structures Conjunctivae: conjunctivae normal Sclerae: sclerae normal Pupils: Equal, round and reactive pupils present EOM: EOMs intact bilaterally Neck Neck: Yes full ROM, Yes no lymphadenopathy and Yes supple Resp Effort & Inspection: normal respiratory effort and able to speak in complete sentences Auscultation: clear to auscultation bilaterally Cardio Rate: regular rate Rhythm: regular rhythm Heart sounds: S1 normal heart sound present and S2 normal heart sound present GI Palpation (GI): Soft to palpation, nontender and no masses Auscultation: normal bowel sounds Neuro General: patient oriented x3, gait normal, tone normal, moves all extremities, Normal light touch and pain sensation and no focal motor deficits Cranial nerves: Yes CN's II-XII intact bilaterally and Yes Equal, round and reactive pupils present Cognition (Neuro): normal cognition Extrem General: Yes full ROM, Yes no joint enlargement, Yes no clubbing, cyanosis or edema and Yes no calf tenderness Psych Appearance: grossly normal and well kempt Mental Status: mental status grossly normal Speech and movement: Normal speech and movement present Affect: normal affect Attitude: cooperative Thought process: Normal thought process present Thought content: Normal thought content present Coding Level of Care Code Est Pt Level 4 (19443) Diagnoses Anemia, unspecified type D64.9 Anemia type: unspecified type Elevated liver enzymes R74.8 Vitamin D deficiency E55.9 Heartburn R12 Additional Codes PHQ-9 - 34565 - PHQ-9 Billing: Yes ([id number]) SCOTTY-7 Assessment Billing - SCOTTY-7 Assessment Tool: SCOTTY-7 Assessment 90549 ([id number]) Assessment & Plan Assessment & Plan (1) Anemia: Code(s): D64.9 - Anemia, unspecified Category: Medical Qualifiers: Anemia type: unspecified type Qualified Code(s): D64.9 - Anemia, unspecified (2) Elevated liver enzymes: Code(s): R74.8 - Abnormal levels of other serum enzymes Category: Medical (3) Vitamin D deficiency: Code(s): E55.9 - Vitamin D deficiency, unspecified Category: Medical (4) Heartburn: Code(s): R12 - Heartburn Category: Medical Plan - Anemia: Perform a repeat CBC to re-evaluate anemia. Address dietary and supplement options if indicated by further investigations. - Post-cholecystectomy symptoms: Advise dietary modifications to reduce fatty food intake. Consider further imaging with an ultrasound if abdominal pain persists. - Gastroesophageal reflux disease: Suggest a trial of acid-suppressive therapy to assess for improvement in chest tightness and pain. Consider referral to gastroenterology if symptoms persist. - Weight gain and hormonal concerns: Recommend thyroid function tests to exclude hypothyroidism due to family history, and continue monitoring of symptoms. Discuss dietary recommendations and exercise to address weight. - Family history considerations: Reinforce regular follow-ups with [facility] including breast exams and discussions on genetic predisposition given the family history of breast and ovarian cancer. - Lifestyle and preventive care: Recommend Vitamin D supplementation and encourage consistent exercise and balanced diet adherence. Patient was informed and verbally consented to the use of an ambient scribe for clinic note documentation during this visit. Orders: Orders Complete Blood Count Auto Diff 01/10/24 D64.9 - Anemia, unspecified, E55.9 - Vitamin D deficiency, unspecified, R12 - Heartburn, R74.8 - Abnormal levels of other serum enzymes TSH reflex Free T4 01/10/24 D64.9 - Anemia, unspecified, E55.9 - Vitamin D deficiency, unspecified, R12 - Heartburn, R74.8 - Abnormal levels of other serum enzymes, Z83.49 - Family history of other endocrine, nutritional and metabolic diseases Vitamin D 25-OH Total 01/10/24 D64.9 - Anemia, unspecified, E55.9 - Vitamin D deficiency, unspecified, R12 - Heartburn, R74.8 - Abnormal levels of other serum enzymes Comprehensive Dix. Panel Fast 01/10/24 D64.9 - Anemia, unspecified, E55.9 - Vitamin D deficiency, unspecified, R12 - Heartburn, R74.8 - Abnormal levels of other serum enzymes IRON PROFILE 01/10/24 D64.9 - Anemia, unspecified, E55.9 - Vitamin D deficiency, unspecified, R12 - Heartburn, R74.8 - Abnormal levels of other serum enzymes Lipid Panel 01/10/24 D64.9 - Anemia, unspecified, E55.9 - Vitamin D deficiency, unspecified, R12 - Heartburn, R74.8 - Abnormal levels of other serum enzymes FL upper GI series 01/10/24 R12 - Heartburn
[2024-01-10 09:54] VITALS: BP 124/80; PULSE 81; O2SAT 97; BMI 35.1
== END 2024-01-10 10:59 | disposition home or self-care (01) ==
PROVIDERS: PCP Nurse Practitioner Primary Care; Visit Provider Internal Medicine
DX: D64.9 Anemia, unspecified (principal); R74.8 Abnormal levels of other serum enzymes; E55.9 Vitamin D deficiency, unspecified; R12 Heartburn

== ENCOUNTER 2024-02-03 00:13 | Emergency (ER) | payer OTHER, SELFPAY ==
[2024-02-03 00:14] VITALS: BP 115/69; BP 124/76; PULSE 105; PULSE 120; RESP 18; TEMP 37.7; O2SAT 98; BMI 36.5
[2024-02-03] MEDS: Ondansetron ODT 4 MG TAB.RAPDIS SUBLINGUAL (00:31)
[2024-02-03 00:50] LABS: MANUAL DIFF FLAG NO
--- NOTE | 2024-02-03 00:52 | PC.NURSE ---
pt biba from home. pt medicated per facility protocol awaiting to be seen by provider reports no vomiting after medicated with zofran
[2024-02-03 00:58] LABS: Basophils Percent Auto 0.2 % (0-2); Eosinophils Absolute Auto 0.1 X10*3/uL (0.0-0.4); Eosinophils Percent Auto 0.4 % (0-4); Hematocrit 42.9 % (37.0-47.0); Hemoglobin 14.5 g/dl (12.0-16.0); Imm Gran Abs Auto 0.06 X10*3/uL (0.00-0.03); Imm Gran Pct Auto 0.4 % (0.0-0.4); Lymphocytes Absolute Auto 1.5 X10*3/uL (1.2-4.9); Mean Corpuscular HGB Conc 33.8 g/dl (31.0-35.0); Mean Corpuscular Hemoglobin 29.5 pg (27.0-33.0); Mean Corpuscular Volume 87.4 fL (80.0-98.0); Mean Platelet Volume 10.7 fL (9.4-12.3); Monocytes Absolute Auto 0.7 X10*3/uL (0.1-1.2); Monocytes Percent Auto 4.6 % (2-11); Neutrophils Absolute Auto 13.8 x10*3/uL (2.0-8.3); Neutrophils Percent Auto 85.4 % (45-73); Platelet Count 172 X10*3/uL (160-400); Red Blood Count 4.91 X10*6/uL (4.20-5.50); White Blood Count 16.2 X10*3/uL (4.8-10.8)
[2024-02-03 01:19] LABS: Alanine Aminotransferase 25 U/L (0-31); Albumin Level 4.1 g/dL (3.5-5.0); Alkaline Phosphatase 60 U/L (39-117); Anion Gap 16 (12-20); Aspartate Amino Transferase 26 U/L (5-31); Blood Urea Nitrogen 14 mg/dL (9-16); Calcium 8.9 mg/dL (8.4-10.2); Carbon Dioxide 19 mmol/L (22-29); Chloride 110 mmol/L (96-108); Creatinine Clr Calc Pharmacy 90.9; Estimated Glomerular Filt Rate > 60; Glucose Random 158 mg/dL (60-115); Lipase 11 U/L (8-78); Potassium 3.6 mmol/L (3.3-5.1); Sodium 141 mmol/L (135-145); Total Protein 7.5 g/dL (6.5-8.0)
[2024-02-03 01:28] LABS: Influenza A PCR NEGATIVE (Negative); Influenza B PCR NEGATIVE (Negative); Resp Syncy Virus RNA Qual PCR NEGATIVE (Negative); SARS COV2 PCR INHOUSE NEGATIVE (Negative)
--- NOTE | 2024-02-03 02:59 | PC.NURSE ---
pt sleeping at this time pt boyfriend at bedside pt awaiting to be seen by ed provider
--- NOTE | 2024-02-03 05:01 | PC.NURSE ---
pt states no nausea/vomiting at this time. po liquids provided pt to make this rn aware if unable to tolerate po
[2024-02-03 05:13] VITALS: BP 114/87; PULSE 103; RESP 16; TEMP 36.8; O2SAT 97
--- NOTE | 2024-02-03 05:14 | PC.NURSE ---
pt provided with jes gore pt provided with instructions for clean catch urine sample. awaiting sample at this time
--- NOTE | 2024-02-03 05:42 | ED.NAVMDI ---
HPI - Nausea/Vomiting/Diarrhea General Chief complaint: Nausea/Vomiting/Diarrhea Stated complaint: ab pain Time Seen by Provider: 02/03/24 05:02 Source: patient Mode of arrival: ambulatory Limitations: no limitations History of Present Illness ED Provider: Dr. Cait Fernandez HPI Narrative: patient comes to the emergency room complaining of nausea vomiting ,no diarrhea. Patient states she has occasional abdominal cramping. Patient states that overall she does not have significant abdominal pain, just feels like abdominal cramping as if she was about to have diarrhea. Patient denies UTI symptoms, denies flank pain. Related Data Previous Rx's ?Medication ?Instructions ?Recorded norethindrone acetate 1.5 1 tab PO DAILY 21 days #63 tabs 12/08/23 mg-ethinyl estradiol 30 mcg tablet (Junel) ondansetron 4 mg disintegrating 4 mg PO Q6H PRN nausea and 02/03/24 tablet vomiting #14 tabs Allergies Allergy/AdvReac Type Severity Reaction Status Date / Time Penicillins [PENICILLINS] Allergy Intermediate rash Verified 02/03/24 00:24 Review of Systems Review of Systems: Constitutional : No Weight loss, No Fever, No Chills, No Night Sweats, No Fatigue, No Malaise ENT/Mouth : No Hearing loss, No Ear Pain, No Nasal Congestion, No Sinus Pain, No Hoarseness, No sore throat, No Rhinorrhea, No Swallowing Difficulty Eyes: No Eye Pain, No Swelling, No Redness, No Foreign Body, No Discharge, No Vision Changes Cardiovascular : No Chest Pain, No SOB, No Dyspnea on Exertion, No Orthopnea, No Edema, No Palpitations Respiratory : No Cough, No Sputum, No Wheezing, No Smoke Exposure, No Dyspnea Gastrointestinal : Complaining of nausea and vomiting No Diarrhea, No Constipation, complaining of abdominal cramping without significant abdominal Pain, No Hematochezia, No Melena Genitourinary : no irregular bleeding, No Dysuria, No Urinary Frequency, No Hematuria, No Urinary Incontinence, No Urgency, No Flank Pain, No Urinary Flow Changes, No Hesitancy Musculoskeletal : No joint pain, No Myalgias, No Joint Swelling Skin : No Skin Lesions, No rash Neuro : No Weakness, No Numbness, No Paresthesias, No Loss of Consciousness, No Dizziness, No Headache Psych : No Anxiety/Panic, No Depression, No SI/HI/AH/VH, No Social Issues, Heme/Lymph: No Bruising, No Bleeding,No Lymphadenopathy Endocrine : No Polyuria, No Polydipsia, No Temperature Intolerance [facility] Past Medical History Medical History Family history of hypothyroidism Liver cyst Constipation Abdominal pain Acquired skin tag Constipation by delayed colonic transit Family history of breast cancer in first degree relative Encounter for annual routine gynecological examination Screening for cervical cancer Screening-pulmonary TB Adult general medical exam COVID-19 Laboratory examination ordered as part of a routine general medical examination Overweight Potential exposure to STD Well woman exam with routine gynecological exam Surgical History Hx laparoscopic cholecystectomy (06/01/23) Hx of tonsillectomy Family History Family History Mother Ovarian cancer Maternal Grandmother Breast cancer Social History Social History Household Members: Significant Other Household Members Other:: daughter Housing: Apartment Alcohol intake: never Patient Tobacco Use Status: Never used Tobacco Smoked in Last 30 Days: No e-Cigarette/Vaping Use: Never Used Use of substances other than those prescribed or required for medical reasons: No Advance Directives: No Advance Directives Information Provided: Yes Do you have a plan to hurt others: No Plan Patient : No service: No Current occupational status: employed 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 Oriented X3. No acute distress. Eyes: Pupils equal, round and reactive to light. ENT: Pharynx normal. Neck: Normal inspection. Neck supple. No lymph nodes noted. No crepitus CVS: Normal heart rate and rhythm. Pulses normal. Normal S1 and S2 Respiratory: No respiratory distress. Breath sounds normal. No Wheezing. No rales Abdomen: Soft and nontender. No rigidity. No distention. no rebound, no guarding Skin: Skin warm and dry. Normal skin color. Normal skin turgor. Extremities: No lower extremity edema. No Lacerations. No Rash Neuro: Oriented X 3. No motor deficit. No sensory deficit. Moving all extremities. No slurred speech. CN 2 through 12 grossly intact Psych: calm, cooperative, normal affect Medications Administered Discontinued Medications Generic Name Dose Route Start Last Admin Trade Name Ponceq PRN Reason Stop Dose Admin Ondansetron HCl 4 mg 02/03/24 00:27 02/03/24 00:31 Ondansetron Odt 4 Mg Tab.Rapdis SUBLINGUAL 02/03/24 00:28 4 mg ONCE ONE Administration Medical Decision Making Medical Decision Making [facility] Narrative: my interpretation of labs: Patient's white blood cell count is 16, chemistry within normal limits. On physical exam, patient did not have any abdominal pain. Patient already had a cholecystectomy, patient did not have any pain to deep palpation on any quadrants. Patient states that he just feels a bit crampy, no pain at McBurney's point, no rebound or guarding. I considered getting a CT scan of the abdomen due to the elevated white blood cell count . However, Patient's abdominal exam was unremarkable. Patient was able to tolerate p.o. and states that she feels better. Urinalysis negative. Patient was able to tolerate p.o. and feels much better. As mentioned above, patient's abdomen physical exam was unremarkable. Patient likely had enteritis versus gastroenteritis. Patient has elevated white blood cell count likely reactive leukocytosis. Patient feels ready to go home. Differential Diagnosis Differential Diagnoses: The differential diagnosis associated with the presentation includes ( As above) Lab Data [facility] Lab Attestation statement: I reviewed the patient's lab results. 02/03/24 00:45 02/03/24 00:45 Labs: Lab Results 02/03/24 02/03/24 Range/Units 00:45 06:41 WBC 16.2 H (4.8-10.8) X10*3/uL RBC 4.91 (4.20-5.50) X10*6/uL Hgb 14.5 (12.0-16.0) g/dl Hct 42.9 (37.0-47.0) % MCV 87.4 (80.0-98.0) fL MCH 29.5 (27.0-33.0) pg MCHC 33.8 (31.0-35.0) g/dl RDW 13.0 (11.0-16.0) % Plt Count 172 D (160-400) X10*3/uL MPV 10.7 (9.4-12.3) fL Immature Gran % (Auto) 0.4 (0.0-0.4) % Neut % (Auto) 85.4 H (45-73) % Lymph % (Auto) 9.0 L (20-40) % [place] % (Auto) 4.6 (2-11) % Eos % (Auto) 0.4 (0-4) % Baso % (Auto) 0.2 (0-2) % Lymph # (Auto) 1.5 (1.2-4.9) X10*3/uL [place] # (Auto) 0.7 (0.1-1.2) X10*3/uL Eos # (Auto) 0.1 (0.0-0.4) X10*3/uL Baso # (Auto) 0.0 (0.0-0.2) X10*3/uL Abs Immat Gran (auto) 0.06 H (0.00-0.03) X10*3/uL Absolute Neuts (auto) 13.8 H (2.0-8.3) x10*3/uL Absolute Nucleated RBC 0.000 (0.0-0.012) X10*3/uL Nucleated RBC % (auto) 0.0 (0.0-0.2) /100WBC Sodium 141 (135-145) mmol/L Potassium 3.6 (3.3-5.1) mmol/L Chloride 110 H (96-108) mmol/L Carbon Dioxide 19 L (22-29) mmol/L Anion Gap 16 (12-20) BUN 14 (9-16) mg/dL Creatinine 0.80 (0.5-1.4) mg/dL Estim Creat Clear Calc 90.9 Estimated GFR > 60 Random Glucose 158 H (60-115) mg/dL Calcium 8.9 (8.4-10.2) mg/dL Total Bilirubin 1.0 (0.0-1.0) mg/dL AST 26 (5-31) U/L ALT 25 (0-31) U/L Alkaline Phosphatase 60 (39-117) U/L Total Protein 7.5 (6.5-8.0) g/dL Albumin 4.1 (3.5-5.0) g/dL Lipase 11 (8-78) U/L Beta HCG, Quant < 2 mIU/mL Urine Color Dark Yellow Urine Appearance Cloudy Urine pH 5.5 (5.0-9.0) Ur Specific Hubbard >= 1.030 H (1.005-1.025) Urine Protein Trace (Neg-Trace) mg/dL Urine Glucose (UA) Negative (Negative) mg/dL Urine Ketones 15 (Negative) mg/dL Urine Blood Small (1+) H (Negative) Urine Nitrite Negative (Negative) Ur Leukocyte Esterase Negative (Negative) Urine Test NEGATIVE (NEGATIVE) Influenza Type A (PCR) NEGATIVE (Negative) Influenza Type B (PCR) NEGATIVE (Negative) RSV RNA Qual (PCR) NEGATIVE (Negative) SARS-CoV-2 RNA (RT-PCR) NEGATIVE (Negative) Discharge Plan Discharge Clinical Impression: Gastroenteritis Patient Disposition: Home, Self-Care Instructions: Gastroenteritis (ED) Prescriptions: New ondansetron 4 mg tablet,disintegrating 4 mg PO Q6H PRN (Reason: nausea and vomiting) Qty: 14 0RF No Action norethindrone ac-eth estradiol [ ()] 1.5-30 mg-mcg tablet 1 tab PO DAILY 21 Days Qty: 63 0RF Rx Instructions: skip placebo week for continuous dosing Print Language: Kinyarwanda
[2024-02-03 06:27] LABS: HCG Quantitative < 2 mIU/mL
[2024-02-03 06:49] LABS: UPreg QC Valid YES; Urine Pregnancy NEGATIVE (NEGATIVE)
[2024-02-03 06:51] LABS: Appearance Urine Cloudy; Color Urine Dark Yellow; Glucose Urine UA Negative (Negative); Leukocyte Esterase Urine Negative (Negative); Nitrite Urine Negative (Negative); PH 5.5 (5.0-9.0); Specific Gravity - Urine >= 1.030 (1.005-1.025); UMIC TRIGGER UACC YES; Urine Blood Small (1+) (Negative); Urine Ketones 15 mg/dL (Negative); Urine Protein Trace mg/dL (Neg-Trace)
[2024-02-03 06:56] LABS: Bacteria Urine 1+ (None Seen); Hyaline Casts Urine 0-2 /LPF (0-2); RBC Urine >20 /HPF (0-2); UACC Culture Trigger YES
[2024-02-03 07:10] VITALS: BP 116/79; PULSE 94; RESP 18; TEMP 36.7; O2SAT 98
== END 2024-02-03 07:12 | disposition home or self-care (01) ==
PROVIDERS: Emergency Provider Emergency Medicine; PCP Internal Medicine
DX: K52.9 Noninfective gastroenteritis and colitis, unspecified (principal); R11.2 Nausea with vomiting, unspecified; Z03.818 Encounter for observation for suspected exposure to other biological agents ruled out
CPT/HCPCS: 0241U; 36415; 80053; 81001; 81025; 83690; 84702; 85025; 87086; 99283; 99284

== ENCOUNTER 2024-02-09 08:11 | Outpatient (REF) | payer OTHER, SELFPAY ==
--- NOTE | ~2024-02-09 | FL_ITS ---
EXAMINATION: XR FLUOROSCOPY UPPER GI WITH AIR CLINICAL INFORMATION: Reflux. COMPARISON: None TECHNIQUE: Fluoroscopic air contrast upper GI examination was performed utilizing standard techniques with thin and thick barium and effervescent granules. Numerous spot images were obtained. FINDINGS: Dual and single contrast images of the esophagus demonstrate normal caliber, contour, and mucosal pattern. Mild cricopharyngeal achalasia present. No evidence of stricture, mass, or ulcerations identified. Esophageal peristalsis was normal. A small type I hiatal hernia is present. Mild gastroesophageal reflux is seen in the distal esophagus. Dual contrast and single contrast images of the stomach demonstrated a normal contour. The gastric rugal folds have a thickened appearance, suggestive of gastritis. There are a few foci of contrast pooling in the body of the stomach that may represent small mucosal ulcerations. No masses are seen. Contrast freely passed into the gastric antrum and duodenal bulb without delay. Single and air-contrast images of the duodenal bulb demonstrate no abnormality. The duodenal sweep has a normal appearance, course, and mucosal fold appearance. The imaged proximal jejunum has a normal fold pattern and caliber. FLUOROSCOPY TIME: 4.0 minutes Number of Spot Images: 9 Number of Cine: 15 DOSE AREA PRODUCT: 2581 uGy-m2 (microgray-meter squared) FL/FL upper GI series IMPRESSION: 1. Mild cricopharyngeal achalasia. 2. Small type I hiatal hernia with mild gastroesophageal reflux. 3. Thickened appearance the gastric rugal folds. In addition there are a few small foci of contrast pooling in the body of stomach. These findings are suggestive of erosive gastritis. Recommend correlation with EGD. This procedure was performed by Blair Elam PA-C, and supervised by Dr. Koenig. Electronically signed by: Karl Koenig MD 02/12/2024 09:57 AM [facility]
== END 2024-02-09 08:12 | disposition home or self-care (01) ==
LOC: HO.XRAY 08:11
PROVIDERS: PCP Internal Medicine; Visit Provider Internal Medicine
DX: R12 Heartburn (principal)
CPT/HCPCS: 74240

== ENCOUNTER → 2024-02-09 08:12 | Outpatient (BNV) | payer OTHER, SELFPAY | PROVIDERS: PCP Internal Medicine; Visit Provider Physician Assistant Surgical | DX: K21.9 Gastro-esophageal reflux disease without esophagitis (principal) | CPT/HCPCS: 74246 ==

== ENCOUNTER 2024-02-28 07:47 | Outpatient (AMB) | payer OTHER, SELFPAY ==
--- NOTE | 2024-02-28 07:54 | MHC.OFFVIS ---
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 Doing well with criminal court judge concerns: Has follow up mammogram at [facility] for intermittent left breast swelling next month, no reports available today. She is hoping for a future within the next few months. Doing well on OCPs and wants refill. She denies any contraindications to control such as: migraines with aura, history of DVT or pulmonary emboli, high blood pressure, liver disease, thrombolic disorders, Lupus, +LEO, breast cancer, or smoking. Regular monthly menses. She denies vaginal itching and irritation. STI screening offered; she declines. She tries to eat healthy and stays active with exercise-walks. Denies family history of colon cancer. FH breast and ovarian cancer. Last pap smear 2019, negative. [facility] Medical History (Updated 02/28/24 @ 08:18 by April Delgadillo CNM) Family history of hypothyroidism Liver cyst Constipation Abdominal pain Acquired skin tag Constipation by delayed colonic transit Family history of breast cancer in first degree relative Screening for cervical cancer Screening-pulmonary TB Adult general medical exam COVID-19 Laboratory examination ordered as part of a routine general medical examination Overweight Potential exposure to STD Surgical History Hx laparoscopic cholecystectomy (06/01/23) Hx of tonsillectomy Family History Mother Ovarian cancer Maternal Grandmother Breast cancer Social History Household Members: Significant Other Household Members Other:: daughter Housing: Apartment Alcohol intake: never Patient Tobacco Use Status: Never used Tobacco e-Cigarette/Vaping Use: Never Used service: No Current occupational status: employed 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 Sexual orientation: Straight/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 Gender identity: Female Cognitive needs: No Hearing needs: No Vision needs: Yes Female Reproductive History Menstrual Age of Menarche: 7 control method: pills Total pregnancies: 1 Full term: 1 Number of Living Children: 1 Date of last pap smear: 11/19/19 (neg pap and hpv) Review of Systems Const All systems reviewed & are unremarkable except as noted in HPI and below Reports as per HPI Eyes Reports no additional complaints ENT Reports no additional complaints Card Reports no additional complaints Resp Reports no additional complaints GI Reports as per HPI and Reports no additional complaints Reports as per HPI Musc Reports no additional complaints Skin/Breast Reports as per HPI Neuro Reports no additional complaints Psych Reports no additional complaints Endo Reports no additional complaints Herminio/Lymph Reports no additional complaints Aller/Immun Reports no additional complaints Physical Exam Vital Signs: Last Vital Signs BP 110/72 02/28/24 07:57 BMI result Body Mass Index 34.7 Const General: cooperative, healthy appearing, no acute distress, well developed and alert Orientation/consciousness: patient oriented x3 HEENT Head: Yes normal to inspection Eyes General: appearance normal, both eyes and all related structures Neck Neck: Yes normal visual inspection Thyroid: Thyroid normal Chest Chest palpation & inspection: normal inspection of the chest and other (no puckering, dimpling, peau de orange, retraction, discharge, masses) Breast/axilla inspection: normal inspection of the breasts Breast/axilla palpation: normal palpation of the breasts Resp Effort & Inspection: normal respiratory effort GI Inspection: Yes normal to inspection Palpation (GI): Soft to palpation Rectal Exam - Female: deferred General: Yes bladder normal to palpation External Female Exam: normal external appearance and normal appearance of the urethra Speculum Exam - Vagina: normal appearance of the vagina, normal palpation and normal vaginal discharge Speculum Exam - Cervix: normal appearance of the cervix, normal palpation and Other cervical findings present (Bled with Pap ectopy noted) Bimanual exam- vagina & uterus: normal bimanual exam, normal palpation, uterine size normal, bladder normal to palpation, normal palpation and non-tender Bimanual Exam- Adnexa, other: no masses Skin General skin exam: no rashes or lesions noted Rashes: no rashes Neuro General: patient oriented x3 Cognition (Neuro): normal cognition Extrem General: Yes normal to inspection Psych Attitude: cooperative Thought process: Normal thought process present Assessment & Plan Assessment & Plan (1) Well woman exam with routine gynecological exam: Code(s): Z01.419 - Encounter for gynecological examination (general) (routine) without abnormal findings Category: Medical Plan Discussed: Current recommendations for pap smears per ASCCP guidelines. Breast awareness and periodic breast exams. Maintain a healthy lifestyle including a well balanced diet and routine exercise. control hormone use warnings: go to ER if and loss of vision, blindness, severe headache, chest pain or difficulty breathing, severe abdominal pain, or any pain or swelling in an extremity. Initiate vitamins ahead of planning to prevent any folic acid deficiency. Insurance may not cover both control and vitamins, can purchase folic acid- vitamins [id number]. AMA, care. Services at [facility] and [facility]. When attempting once missed menses to do a home test and notify office for a follow up. Send records from [facility] of breast evaluation. Patient verbalizes understanding and agrees to the plan of care. She was given opportunity to ask questions and all questions were answered to the best of my ability. RTO in one year for annual criminal court judge examination. This note is constructed using voice recognition software. While every effort has been made to ensure accuracy, air route controller errors may have been included. Medications: New PNV,calcium 01-xhhp-crfbf acid 27 mg iron- 1 mg ( Vitamins Plus Low Iron) 1 tab PO DAILY 90 tabs 4RF Refilled norethindrone ac-eth estradiol 1.5-30 mg-mcg () skip placebo week for continuous dosing 1 tab PO DAILY 21 days 63 tabs 4RF Coding Level of Care Code Est Pt Prev Care 18-39y(80845) Diagnoses Well woman exam with routine gynecological exam Z01.419
[2024-02-28 07:57] VITALS: BP 110/72; BMI 34.7
== END 2024-02-28 08:35 | disposition home or self-care (01) ==
PROVIDERS: Visit Provider Advanced Practice Midwife
DX: Z01.419 Encounter for gynecological examination (general) (routine) without abnormal findings (principal)
CPT/HCPCS: 99395; 99459

== ENCOUNTER 2024-02-28 07:47 | Outpatient (REF) | payer OTHER, SELFPAY ==
[2024-03-05 12:40] LABS: HPV Genotype 16 Negative (Negative); HPV Genotype 18 Negative (Negative); HPV High Risk Negative (Negative)
== END 2024-02-28 07:48 | disposition home or self-care (01) ==
LOC: HO.LNP 07:47
PROVIDERS: Visit Provider Advanced Practice Midwife
DX: Z01.419 Encounter for gynecological examination (general) (routine) without abnormal findings (principal); Z11.51 Encounter for screening for human papillomavirus (HPV); Z72.89 Other problems related to lifestyle; Z79.3 Long term (current) use of hormonal contraceptives
CPT/HCPCS: 87626; 88175; 99395; 99459

== ENCOUNTER 2024-04-02 14:52 | Outpatient (AMB) | payer OTHER, SELFPAY ==
--- NOTE | 2024-04-02 15:12 | AM.OFFVISNUR ---
Intake Visit Reasons: Tdap Intake Note: Pt arrived for Tdap booster Allergies Penicillins [PENICILLINS] Allergy (Intermediate, Verified 02/28/24 07:56) rash Immunizations Boostrix Tdap 2.5 Lf unit-8 mcg-5 Lf/0.5 mL intramuscular syringe Performing Provider: Elizabeth Sandy MD Performing Location: [facility] Administered by: Cat Lea RN on 04/02/24 15:12 Dose Route Admin Location Dispensed Lot Number Expiration Date ND Marketing Analyst 0.5 mL IM Right Deltoid 0.5 mL [id number] 04/24/26 20578-824-04 [employer] VIS Given Date VIS Provided VIS Publication Date 04/02/24 Single Vaccine 20 Eligibility Eligibility Date Funding Source Not [facility] Eligible 04/02/24 Private Assessment & Plan Assessment & Plan Orders: Orders TDaP Immunization Today Z23 - Encounter for immunization Medications: New Boostrix Tdap (diphth,pertus(acell),tetanus) 0.5 mL IM ONCE 0.5 mL 0RF NS Z23 - Encounter for immunization Coding
== END 2024-04-02 16:02 | disposition home or self-care (01) ==
PROVIDERS: PCP Internal Medicine; Visit Provider Internal Medicine
DX: Z23 Encounter for immunization (principal)

== ENCOUNTER → 2024-04-02 14:52 | Outpatient (BNVA) | payer OTHER, SELFPAY | PROVIDERS: PCP Internal Medicine; Visit Provider Internal Medicine | DX: Z23 Encounter for immunization (principal) | CPT/HCPCS: 90471; 90715 ==

== ENCOUNTER 2024-04-03 06:16 | Outpatient (REF) | payer OTHER, SELFPAY ==
[2024-04-03 10:24] LABS: ~Hepatitis B Surface Antibody REACTIVE (Nonreactive)
[2024-04-04 08:53] LABS: Varicella IgG Antibody <1.00 S/CO
[2024-04-04 13:39] LABS: Rubella IgG Antibody <0.90 Index
[2024-04-06 01:34] LABS: TS Negative Control Passed; TS Panel A 0; TS Panel B 0; TS Positive Control Passed; TSpotTB Negative (Negative)
== END 2024-04-03 06:17 | disposition home or self-care (01) ==
LOC: HO.HMGCLDS 06:16
PROVIDERS: PCP Internal Medicine; Visit Provider Internal Medicine
DX: Z11.1 Encounter for screening for respiratory tuberculosis (principal); Z01.84 Encounter for antibody response examination; Z78.9 Other specified health status
CPT/HCPCS: 36415; 86481; 86706; 86735; 86762; 86765; 86787

== ENCOUNTER 2024-04-19 08:48 | Outpatient (AMB) | payer OTHER, SELFPAY ==
--- NOTE | 2024-04-19 08:46 | A.OFFPC_ITS ---
Intake Visit Reasons: 1m TV follow up Allergies Penicillins [PENICILLINS] Allergy (Intermediate, Verified 04/19/24 09:07) rash Medication List - Last Reconciled 04/19/24 by Elizabeth Sandy MD omeprazole 40 mg PO DAILY Tobacco use date assessed: 04/19/24 Dental Screening Dental Screen Date: 01/10/24 HPI 1m TV follow up HPI Details 34-year-old lady here today for follow-u p. Has been complaining having intermittent episodes of early satiety and sensation of food not completely going down after eating. He also has been having frequent episodes of heartburn at that time and was started on omeprazole 40 mg once a day which she states has been helping. He however still has get breakthrough episodes of heartburn especially at night. Denies any weight loss, no blood in the stool reported. Upper GI series done 02/09/2024 showed the following 1. Mild cricopharyngeal achalasia. 2. Small type I hiatal hernia with mild gastroesophageal reflux. 3. Thickened appearance the gastric ruga l folds. In addition there are a few small foci of contrast pooling in the body of stomach. These findings are suggestive of erosive gastritis. Recommend correlation with EGD. [facility] Medical History (Updated 04/19/24 @ 09:25 by Elizabeth Sandy MD) Mass of left breast on mammogram History of cholelithiasis Hiatal hernia with GERD Erosive gastritis Cricopharyngeal achalasia Family history of hypothyroidism Liver cyst Constipation Abdominal pain Acquired skin tag Constipation by delayed colonic transit Family history of breast cancer in first degree relative Screening for cervical cancer Screening-pulmonary TB Adult general medical exam COVID-19 Laboratory examination ordered as part of a routine general medical examination Overweight Potential exposure to STD Surgical History (Updated 04/19/24 @ 09:21 by Elizabeth Sandy MD) Hx laparoscopic cholecystectomy (06/01/23) Hx of tonsillectomy Family History Mother Ovarian cancer Maternal Grandmother Breast cancer Social History Household Members: Significant Other Household Members Other:: daughter Housing: Apartment Alcohol intake: never Patient Tobacco Use Status: Never used Tobacco e-Cigarette/Vaping Use: Never Used service: No Current occupational status: employed 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 Doni Piedra, Nery Shields, Rg Schneider and colleagues, with an educational flakito from [employer]. Review of Systems Const All systems reviewed & are unremarkable except as noted in HPI and below Reports as per HPI ENT Reports no additional complaints Card Reports no additional complaints Resp Reports no additional complaints GI Reports as per HPI Reports as per HPI Musc Reports no additional complaints Neuro Reports no additional complaints Endo Reports no additional complaints Herminio/Lymph Reports no additional complaints Aller/Immun Reports no additional complaints Physical exam (Primary Care) Tobacco/Smoking Status: Tobacco use Status Tobacco use date assessed 04/19/24 04/19/24 08:48 Patient Tobacco Use Status Never used Tobacco 04/19/24 08:48 e-Cigarette/Vaping Use Never Used 04/19/24 08:48 Thrive Assessment: Date of Thrive Assessment Date Thrive assessed 04/02/24 04/19/24 08:48 Telehealth Telehealth Telehealth Platform: [facility] Location of provider rendering services: practice address Location of patient: address on file Patient Identification confirmed using: Name, : Yes Telehealth method: video Patient verbally consented to treatment: Yes Patient verbally consented to billing insurance company: Yes Patient informed of any privacy concerns related to visit: Yes Minutes spent on Phone/Video with Pt.: 15 Coding Level of Care Code Tele Est Pt Level 4 (28358) Diagnoses Cricopharyngeal achalasia K22.0 Erosive gastritis K29.60 Hiatal hernia with GERD K44.9; K21.9 Assessment & Plan Assessment & Plan (1) Cricopharyngeal achalasia: Code(s): K22.0 - Achalasia of cardia Category: Medical (2) Erosive gastritis: Code(s): K29.60 - Other gastritis without bleeding Category: Medical (3) Hiatal hernia with GERD: Code(s): K44.9 - Diaphragmatic hernia without obstruction or gangrene; K21.9 - Gastro- esophageal reflux disease without esophagitis Category: Medical Plan Upper GI series results discussed with patient, will refer to the GI clinic at [facility] for further evaluation. In the meantime advised continued avoidance of trigger factors for heartburn especially acidic foods, do not lie down right away after eating at night, avoidance of too much caffeine intake. Continue omeprazole 40 mg daily. Orders: Referrals Gastroenterology Referral K21.9 - Gastro-esophageal reflux disease without esophagitis, K22.0 - Achalasia of cardia, K29.60 - Other gastritis without bleeding, K44.9 - Diaphragmatic hernia without obstruction or gangrene, K80.50 - Calculus of bile duct without cholangitis or cholecystitis without obstruction
== END 2024-04-19 09:32 | disposition home or self-care (01) ==
LOC: HO.HMCC 08:48
PROVIDERS: PCP Internal Medicine; Visit Provider Internal Medicine
DX: K22.0 Achalasia of cardia (principal); K29.60 Other gastritis without bleeding; K44.9 Diaphragmatic hernia without obstruction or gangrene; K21.9 Gastro-esophageal reflux disease without esophagitis

== ENCOUNTER → 2024-04-19 08:48 | Outpatient (BNVA) | payer OTHER, SELFPAY | PROVIDERS: PCP Internal Medicine; Visit Provider Internal Medicine ==

== ENCOUNTER 2024-08-21 13:39 | Outpatient (REF) | payer OTHER, SELFPAY ==
[2024-08-21 15:39] LABS: Alanine Aminotransferase 19 U/L (0-31); Albumin Level 4.1 g/dL (3.5-5.0); Alkaline Phosphatase 63 U/L (39-117); Anion Gap 9 (12-20); Aspartate Amino Transferase 23 U/L (5-31); Blood Urea Nitrogen 10 mg/dL (9-16); Calcium 8.6 mg/dL (8.4-10.2); Carbon Dioxide 25 mmol/L (22-29); Chloride 110 mmol/L (96-108); Estimated Glomerular Filt Rate > 60; Potassium 3.9 mmol/L (3.3-5.1); Sodium 140 mmol/L (135-145); Total Protein 6.7 g/dL (6.5-8.0)
[2024-08-21 16:14] LABS: Folate 11.2 ng/mL (> or = 4.0); Vitamin B12 180 pg/mL (200-900)
[2024-08-22 19:33] LABS: Transglutaminase Ab IgG <1.0 U/mL
[2024-08-25 13:03] LABS: Vitamin D 25-OH, D2 <4 ng/mL; Vitamin D 25-OH, D3 26 ng/mL; Vitamin D 25-OH, Total 26 ng/mL (30-100)
== END 2024-08-21 13:40 | disposition home or self-care (01) ==
LOC: HO.LAB 13:39
PROVIDERS: PCP Internal Medicine; Visit Provider Nurse Practitioner Family
DX: K80.50 Calculus of bile duct without cholangitis or cholecystitis without obstruction (principal); K22.0 Achalasia of cardia; K44.9 Diaphragmatic hernia without obstruction or gangrene; K21.9 Gastro-esophageal reflux disease without esophagitis; E55.9 Vitamin D deficiency, unspecified; R19.7 Diarrhea, unspecified; K29.60 Other gastritis without bleeding; R10.13 Epigastric pain; R13.12 Dysphagia, oropharyngeal phase
CPT/HCPCS: 36415; 80053; 82306; 82607; 82746; 86364; 99202

== ENCOUNTER 2024-08-21 13:39 | Outpatient (AMB) | payer OTHER, SELFPAY ==
--- OUTSIDE RECORDS SUMMARY | 2024-08-20 07:50 | XMS_ITS ---
Author Organization [facility] Address [address] [place] [phone] Care Team Providers Care Yoker Name Role Phone Du PATTON, Elizabeth Primary Care Provider Jos Stafford Jr [phone] REASON FOR VISIT gerd, abn xr GI tract Encounters Encounter Location Date Provider Diagnosis [facility] Out[place] [address] [place] [id number] 08/20/2024 Jos Huitron Jr Plan Of Treatment No Information Progress Notes * KEENAN GARZAMINEDOB:[birth year] (34 yo F)Acc No.[id number]:08/20/2024 EGD/MAC Patient: ANA SNYDER Provider: Kirit Huitron MD :1990 A ge:34 Y S ex:Female Date:08/20/2024 Address:[address] [place], [place] [phone] Pcp:Elizabeth Sandy MD Subjective: * Chief Complaints: [...] Pending * Provider: Kirit Huitron MD Date: 08/20/2024 Generated for Radha french/Tanvi/eTransmitting on: 08/21/2024 02:32 PM EDT
--- NOTE | 2024-08-21 13:46 | A.OFFVIS_ITS ---
Vital Signs 08/21/24 13:48 Height 4 ft 11 in Weight 169 lb BMI 34.1 BP 136/84 Blood Pressure Location Lt brachial Position Sitting Pulse 94 Pulse Oximetry (%) 96 Oxygen Delivery Method Room Air Intake Visit Reasons: Other gastritis, Achalasia Intake Note: Patient new consult for Other gastritis, Achalasia Patient cc: abdominal bloating and LRQ pain, gastritis with chest discomfort, swallowing difficulty with solid and liquid even with her saliva, denies other GI issues. Fitness And Wellness Director Required: No Accompanied by: Self / Same As Patient Allergies Penicillins (PENICILLINS) Allergy (Intermediate, Verified 08/21/24 13:47) rash HPI HPI Other gastritis, Achalasia: Details: 34 years old female with past medical history of hiatal hernia with GERD, cricopharyngeal achalasia, transaminitis, biliary colic, cholelithiasis is here to today for initial consultation. Patient was sent to us by her PCP. Patient had upper GI series done back in February that show cricopharyngeal achalasia, significant reflux as well as possible gastritis contrast pooling in the stomach suggestive of possible ulcers. Patient reports epigastric pain sometimes so severe did patient feels like she is having chest pain. Patient is having trouble swallowing even her saliva. Patient is eating small amounts. Currently she is taking omeprazole and states that it is not helping her. Patient denies any nausea or vomiting. Denies any melena, hematochezia. Reports that she is not moving her bowels well. [facility] Medical History (Updated 04/20/24 @ 02:03 by Elizabeth Sandy MD) Mass of left breast on mammogram History of cholelithiasis Hiatal hernia with GERD Erosive gastritis Cricopharyngeal achalasia Family history of hypothyroidism Liver cyst Constipation Abdominal pain Acquired skin tag Constipation by delayed colonic transit Family history of breast cancer in first degree relative Screening for cervical cancer Screening-pulmonary TB Adult general medical exam COVID-19 Laboratory examination ordered as part of a routine general medical examination Overweight Potential exposure to STD Surgical History Hx laparoscopic cholecystectomy (06/01/23) Hx of tonsillectomy Family History Mother Ovarian cancer Maternal Grandmother Breast cancer Social History Household Members: Significant Other Household Members Other:: daughter Housing: Apartment Alcohol intake: never Patient Tobacco Use Status: Never used Tobacco e-Cigarette/Vaping Use: Never Used service: No Current occupational status: employed 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 Sexual orientation: Straight/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 Gender identity: Female Cognitive needs: No Hearing needs: No Vision needs: Yes Female Reproductive History Menstrual Age of Menarche: 7 Review of Systems Const Denies weight gain and Denies weight loss ENT Reports no additional complaints, Reports dysphagia and Denies odynophagia Card Reports no additional complaints Resp Reports no additional complaints GI Reports abdominal pain, Denies belching, Denies melena, Reports bloating, Denies change in bowel habits, Reports constipation, Reports dysphagia, Denies excessive flatus, Denies dyspepsia, Reports heartburn, Denies diarrhea, Denies loose stools, Denies nausea, Denies odynophagia and Denies vomiting Reports no additional complaints Musc Reports no additional complaints Neuro Reports no additional complaints Psych Reports no additional complaints Endo Reports no additional complaints Physical Exam Vital Signs: Last Vital Signs Pulse 94 08/21/24 13:48 BP 136/84 08/21/24 13:48 Pulse Ox 96 08/21/24 13:48 Oxygen Delivery Method Room Air 08/21/24 13:48 BMI result Body Mass Index 34.1 Const General: healthy appearing and no acute distress Nutritional Appearance: well nourished and obese Orientation/consciousness: patient oriented x3 Resp Effort & Inspection: normal respiratory effort, able to speak in complete sentences, no tracheal deviation and symmetric chest movement Auscultation: clear to auscultation bilaterally Cardio Rate: regular rate GI Inspection: Yes normal to inspection, No distended and Yes obesity Palpation (GI): Soft to palpation, not firm, nontender and No hepatosplenomegaly present Auscultation: normal bowel sounds General: Yes no CVA tenderness Back/Spine/Pelvis Back: no CVA tenderness Skin General skin exam: elasticity normal, turgor normal and dry skin Neuro General: patient oriented x3 Psych Appearance: grossly normal Mental Status: mental status grossly normal Results Reviewed Results Reviewed: UPPER GI SERIES 02/11/2024 IMPRESSION: 1. Mild cricopharyngeal achalasia. 2. Small type I hiatal hernia with mild gastroesophageal reflux. 3. Thickened appearance the gastric rugal folds. In addition there are a few small foci of contrast pooling in the body of stomach. These findings are suggestive of erosive gastritis. Recommend correlation with EGD. Assessment & Plan Assessment & Plan (1) Cricopharyngeal achalasia: Code(s): K22.0 - Achalasia of cardia Category: Medical (2) Recurrent biliary colic: Code(s): K80.50 - Calculus of bile duct without cholangitis or cholecystitis without o bstruction Category: Surgical (3) Hiatal hernia with GERD: Code(s): K44.9 - Diaphragmatic hernia without obstruction or gangrene; K21.9 - Gastro- esophageal reflux disease without esophagitis Category: Medical (4) Postprandial epigastric pain: Code(s): R10.13 - Epigastric pain (5) Dysphagia: Code(s): R13.10 - Dysphagia, unspecified Qualifiers: Dysphagia type: oropharyngeal phase Qualified Code(s): R13.12 - Dysphagia, oropharyngeal phase Plan Will change PPI to pantoprazole. Avoid dietary triggers like that snacking. Staying upright for minimal 3 hours after meals discussed with patient. Will check labs, rule out celiac. Patient will start taking senna and will increase fluid intake and activity to promote better bowel motility. Patient will eat smaller meals and more often. I will see her in 2 months. We will send patient for upper endoscopy. She is agreeable to current plan of care and verbalizes understanding of instructions. She was given the opportunity to ask questions and all questions answered. Thank you for allowing me to participate in her care Orders: Orders Vitamin D 25-OH (D2 and D3) 08/21/24 E55.9 - Vitamin D deficiency, unspecified Transglutaminase Ab IgG 08/21/24 R10.9 - Unspecified abdominal pain Transglutaminase IgA 08/21/24 R10.9 - Unspecified abdominal pain Comprehensive Met. Panel 08/21/24 K21.9 - Gastro-esophageal reflux disease without esophagitis Vitamin B12 and Folate 08/21/24 R19.7 - Diarrhea, unspecified Medications: New sennosides (Natural Senna Laxative) 17.2 mg (2 x 8.6 mg) PO BEDTIME 60 tabs 3RF constipation K59.00 - Constipation, unspecified pantoprazole take one tablet half an hour before breakfast 40 mg PO DAILY 30 tabs 3RF K21.9 - Gastro-esophageal reflux disease without esophagitis Discontinued omeprazole take 1 capsule 1 hour before eating breakfast Discontinued Reason: Doctor's Order 40 mg PO DAILY 30 caps 2RF Coding Level of Care Code New Pt Level 4 (34421) Diagnoses Cricopharyngeal achalasia K22.0 Recurrent biliary colic K80.50 Hiatal hernia with GERD K44.9; K21.9 Postprandial epigastric pain R10.13 Oropharyngeal dysphagia R13.12 Dysphagia type: oropharyngeal phase Time Spent (min) 50 Comment 35 minutes spent with patient and additional 15 minutes spent reviewing her records
[2024-08-21 13:48] VITALS: BP 136/84; PULSE 94; O2SAT 96; BMI 34.1
== END 2024-08-21 14:13 | disposition home or self-care (01) ==
LOC: HO.HGI 13:40
PROVIDERS: Visit Provider Nurse Practitioner Family
DX: K22.0 Achalasia of cardia (principal); K80.50 Calculus of bile duct without cholangitis or cholecystitis without obstruction; K44.9 Diaphragmatic hernia without obstruction or gangrene; K21.9 Gastro-esophageal reflux disease without esophagitis; R10.13 Epigastric pain; R13.12 Dysphagia, oropharyngeal phase
CPT/HCPCS: 99204

== ENCOUNTER 2024-10-23 16:05 | Outpatient (AMB) | payer OTHER, SELFPAY ==
--- OUTSIDE RECORDS SUMMARY | 2024-08-20 07:50 | XMS_ITS ---
Author Organization [facility] Address [address] [place] [phone] Care Team Providers Care Logistics Planner Name Role Phone Du PATTON, Elizabeth Primary Care Provider Jos Stafford Jr [phone] REASON FOR VISIT gerd, abn xr GI tract Encounters Encounter Location Date Provider Diagnosis [facility] Out[facility] [address] [place] [id number] 08/20/2024 Jos Huitron Jr Plan Of Treatment No Information Progress Notes * KEENAN GARZAMINEDOB:[birth year] (34 yo F)Acc No.[id number]:08/20/2024 EGD/MAC Patient: ANA SNYDER Provider: Kirit Huitorn MD :1990 A ge:34 Y S ex:Female Date:08/20/2024 Address:[address] [place], [place] [phone] Pcp:Elizabeth Sandy MD Subjective: * Chief Complaints: [...] 0 08/20/2024 Generated for Radha french/Tanvi/eTransmitting on: 0 10/23/2024 07:15 PM EDT
--- NOTE | 2024-10-23 16:09 | MHC.OFFVIS ---
Vital Signs 10/23/24 16:10 Height 4 ft 11 in Weight 173 lb BMI 34.9 BP 148/90 H Blood Pressure Location Rt brachial Position Sitting Pulse 80 Pulse Source Pulse Oximeter Pulse Oximetry (%) 99 Oxygen Delivery Method Room Air Intake Visit Reasons: 2m Intake Note: Est pt for mgmt of gastritis, achalasia CC; C.O. sx persistence despite any recent interventions that were made. Pt states that her sx have remained static and have not progressed nor improved since last visit. Dysphagia, epigastric pain, and gas reported. Pt states she is moving her bowels OK. [employer] Board Certified Orthotist Required: No Accompanied by: Significant Other Allergies Penicillins (PENICILLINS) Allergy (Intermediate, Verified 11/11/24 10:02) rash HPI HPI 2m: Details: LAST VISIT: Cricopharyngeal achalasia Recurrent biliary colic Hiatal hernia with GERD Postprandial epigastric pain Dysphagia Plan Will change PPI to pantoprazole. Avoid dietary triggers like that snacking. Staying upright for minimal 3 hours after meals discussed with patient. Will check labs, rule out celiac. Patient will start taking senna and will increase fluid intake and activity to promote better bowel motility. Patient will eat smaller meals and more often. I will see her in 2 months. We will send patient for upper endoscopy. She is agreeable to current plan of care and verbalizes understanding of instructions. She was given the opportunity to ask questions and all questions answered. ? Thank you for allowing me to participate in her care Orders Vitamin D 25-OH (D2 and D3) 08/21/24 E55.9 Transglutaminase Ab IgG 08/21/24 R10.9 Transglutaminase IgA 08/21/24 R10.9 Comprehensive Met. Panel 08/21/24 K21.9 Vitamin B12 and Folate 08/21/24 R19.7 New sennosides (Natural Senna Laxative) 17.2 mg (2 x 8.6 mg) PO BEDTIME 60 tabs 3RF constipation K59.00 pantoprazole take one tablet half an hour before breakfast 40 mg PO DAILY 30 tabs 3RF K21.9 Discontinued omeprazole take 1 capsule 1 hour before eating breakfast Discontinued Reason: Doctor's Order 40 mg PO DAILY 30 caps 2RF TODAY'S VISIT Patient is here today for follow-up. Patient reports that she continues to have epigastric pain no matter what she eats. Patient also reports nausea without vomiting. Sometimes trouble swallowing. She is currently taking pantoprazole. Take senna as needed to help with bowel movements. Moving her bowels better. Patient feels like pantoprazole is not working. Patient is trying to avoid dietary triggers, however she feels like no matter what she eats she will have reflux, dyspepsia and epigastric pain. Patient denies fever or chills. Denies melena, hematochezia, unintentional weight loss or ribbon like stools. PFSH Medical History Umbilical hernia Difficult intubation Vitamin B12 deficiency Mass of left breast on mammogram History of cholelithiasis Hiatal hernia with GERD Erosive gastritis Cricopharyngeal achalasia Family history of hypothyroidism Liver cyst Constipation Abdominal pain Acquired skin tag Constipation by delayed colonic transit Family history of breast cancer in first degree relative Screening for cervical cancer Screening-pulmonary TB Adult general medical exam COVID-19 Laboratory examination ordered as part of a routine general medical examination Overweight Potential exposure to STD Surgical History Hx of esophagogastroduodenoscopy Hx laparoscopic cholecystectomy (06/01/23) Hx of tonsillectomy Family History Mother Ovarian cancer Maternal Grandmother Breast cancer Social History Household Members: Significant Other Household Members Other:: daughter Housing: Apartment Alcohol intake: current Alcohol intake frequency: holidays/special occasions only Patient Tobacco Use Status: Never used Tobacco Smoked in Last 30 Days: No e-Cigarette/Vaping Use: Never Used Use of substances other than those prescribed or required for medical reasons: No Advance Directives: No Advance Directives Information Provided: No Do you have a plan to hurt others: No Plan Patient : No service: No Current occupational status: employed 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 Sexual orientation: Straight/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 Gender identity: Female Cognitive needs: No Hearing needs: No Vision needs: Yes Female Reproductive History Menstrual Age of Menarche: 7 Review of Systems Const Denies weight gain and Denies weight loss ENT Reports no additional complaints, Reports dysphagia and Denies odynophagia Card Reports no additional complaints Resp Reports no additional complaints GI Reports abdominal pain, Denies belching, Denies melena, Reports bloating, Denies change in bowel habits, Reports constipation, Reports dysphagia, Denies excessive flatus, Denies dyspepsia, Reports heartburn, Denies diarrhea, Denies loose stools, Denies nausea, Denies odynophagia and Denies vomiting Reports no additional complaints Musc Reports no additional complaints Neuro Reports no additional complaints Psych Reports no additional complaints Endo Reports no additional complaints Physical Exam Vital Signs: Last Vital Signs Pulse 80 10/23/24 16:10 BP 148/90 H 10/23/24 16:10 Pulse Ox 99 10/23/24 16:10 Oxygen Delivery Method Room Air 10/23/24 16:10 BMI result Body Mass Index 34.9 Const General: healthy appearing and no acute distress Nutritional Appearance: well nourished and obese Orientation/consciousness: patient oriented x3 Resp Effort & Inspection: normal respiratory effort, able to speak in complete sentences, no tracheal deviation and symmetric chest movement Auscultation: clear to auscultation bilaterally Cardio Rate: regular rate GI Inspection: Yes normal to inspection, No distended and Yes obesity Palpation (GI): Soft to palpation, not firm, nontender and No hepatosplenomegaly present Auscultation: normal bowel sounds General: Yes no CVA tenderness Back/Spine/Pelvis Back: no CVA tenderness Skin General skin exam: elasticity normal, turgor normal and dry skin Neuro General: patient oriented x3 Psych Appearance: grossly normal Mental Status: mental status grossly normal Results Reviewed Results Reviewed: Laboratory Tests 08/21/24 14:39 Vitamin B12 180 L 25-OH Vitamin D Total 26 L Folate 11.2 Tiss Transglutamin IgG <1.0 Tiss Transglutamin IgA <1.0 Assessment & Plan Assessment & Plan (1) Cholecystolithiasis: Code(s): K80.20 - Calculus of gallbladder without cholecystitis without obstruction Category: Medical (2) Elevated liver enzymes: Code(s): R74.8 - Abnormal levels of other serum enzymes Category: Medical (3) Postprandial epigastric pain: Code(s): R10.13 - Epigastric pain (4) Dyspepsia: Code(s): R10.13 - Epigastric pain (5) Constipation: Code(s): K59.00 - Constipation, unspecified Qualifiers: Constipation type: slow transit constipation Qualified Code(s): K59.01 - Slow transit constipation Plan Patient will continue her current therapy with PPI. Instructed to take it half an hour before breakfast every morning. Able to schedule patient for upper endoscopy till for tomorrow. She will follow-up in the office after. Pending biopsy treatment for H pylori if positive. Will need to evaluate successful eradication of the bacteria in the near future if positive. Discussed with patient avoiding dietary triggers and late night snacking. Staying upright for minimum 3 hours after meals discussed with patient. Patient will follow-up with us after the procedure, sooner on as needed basis. She is agreeable to this plan and verbalizes understanding of instructions. She was given the opportunity to ask questions and all questions answered. Thank you for allowing me to participate in her care Coding Level of Care Code Est Pt Level 4 (54919) Complex EM visit Add On G2211 Diagnoses Cholecystolithiasis K80.20 Elevated liver enzymes R74.8 Postprandial epigastric pain R10.13 Dyspepsia R10.13 Slow transit constipation K59.01 Constipation type: slow transit constipation Time Spent (min) 35 Comment 25 minutes spent with patient and additional 10 minutes spent reviewing her records
[2024-10-23 16:10] VITALS: BP 148/90; PULSE 80; O2SAT 99; BMI 34.9
--- OUTSIDE RECORDS SUMMARY | 2024-10-23 19:16 | XMS_ITS | Patient Health Record ---
Author Organization [facility] Address [address] [place] [id number] Care Team Providers Care Inventory Taker Name Role Phone Elizabeth Sandy MD Primary Care Provider Juan Huitron Jr, Jos Hernandez Allergies Allergen (clinical drug ingredient) Drug/Non Drug Allergy documented on EMR Reaction Allergy Type Onset Date Status Penicillin Unknown Drug Allergy Active Reason For Referral No Information Medications Medication SIG (Take, Route, Fr equency, Duration) Notes Start Date End Date Status Omeprazole 40 MG 1 capsule 1/2 to 1 h our before morning meal Orally Once a day A ctive Social History Tobacco Use: Social History Observation Description Date Details (start date - stop date) Never Smoker NA - NA Tobacco Control (Standard) Question Answer Notes Tobacco use: Nonsmoker AUDIT-C (Standard) Question Answer Notes Did you have a drink containing alcohol in the p ast year? No Points 0 Interpretation Negative Problems Problem Type SNOMED Code ICD Code Onset Dates Problem Status W/U Status Risk Notes Problem Gastroesophageal reflux disease ([id number]) GERD (gastroeso phageal reflux disease) (K21.9) Active confirmed Vital Signs Blood pressure diastolic 77 mm Hg 08/01/2024 Height 59 in 08/01/2024 Blood pressure systolic 111 mm Hg 08/01/2024 Weight 175 lbs 08/01/2024 BMI 35.34 kg/m2 08/01/2024 Encounters Encounter Location Date Provider Diagnosis [facility] [address] [place] [phone] 08/01/2024 Jos Huitron Jr GERD (gastroesophageal reflux disease) K21.9 and Abn findings-GI tract R93.3 [facility] [address] [place] [phone] 08/08/2024 Jos Huitron Jr Assessments Encounter Date Diagnosis (ICD Code) Assessment Notes Treatment Notes Treatment Clinical Notes Section Notes 08/01/2024 Abn findings-GI tract (ICD-10 - R93.3) We discussed her symptoms today. We discussed gastroesophageal reflux disease, including the pathophysiology. We discussed diet, lifestyle modifications, and weight management regarding the treatment of reflux. We recommended she continue omeprazole. She will be scheduled for upper GI endoscopy because of her symptoms and the x-ray findings. We discussed risks and benefits of the procedure today. She understands these and agrees to proceed. This will be scheduled at her convenience. 08/01/2024 GERD (gastroesopha geal reflux disease) (ICD-10 - K21.9) We discussed her symptoms today. We discussed gastroesophageal reflux disease, including the pathophysiology. We discussed diet, lifestyle modifications, and weight management regarding the treatment of reflux. We recommended she continue omeprazole. She will be scheduled for upper GI endoscopy because of her symptoms and the x-ray findings. We discussed risks and benefits of the procedure today. She understands these and agrees to proceed. This will be scheduled at her convenience. Plan Of Treatment Future Test Test Name Order Date UPPER GI ENDOSCOPY 08/01/2024 Insurance Providers Payer Name Payer Address Payer Phone Subscriber Number Group Number Insured Name Patient Relationship to Insured Coverage Start Date Coverage End Date [facility] [employer] [facility] [address] [address] [place], [place] [id number] ANA GARZA Self - patient is the insured Medical (General) History Medical History History ICD Code Denies ME,DM,CVA,Lung disease,renal dise ase Surgical History Surgery Date(Month/Year) gallstones/cholecystectomy laparoscopic 2023
== END 2024-10-23 16:43 | disposition home or self-care (01) ==
LOC: HO.HGI 16:06
PROVIDERS: PCP Internal Medicine; Visit Provider Nurse Practitioner Family
DX: K80.20 Calculus of gallbladder without cholecystitis without obstruction (principal); R74.8 Abnormal levels of other serum enzymes; R10.13 Epigastric pain; K59.01 Slow transit constipation
CPT/HCPCS: 99214

== ENCOUNTER → 2024-10-23 16:05 | Outpatient (BNVA) | payer OTHER, SELFPAY | PROVIDERS: PCP Internal Medicine; Visit Provider Nurse Practitioner Family | DX: K80.20 Calculus of gallbladder without cholecystitis without obstruction (principal); R74.8 Abnormal levels of other serum enzymes; R10.13 Epigastric pain; K59.01 Slow transit constipation | CPT/HCPCS: 99212 ==

== ENCOUNTER 2024-10-24 11:18 | Day surgery (SDC) | payer OTHER, SELFPAY ==
--- OUTSIDE RECORDS SUMMARY | 2024-08-20 07:50 | XMS_ITS ---
Author Organization [facility] Address [address] [place] [phone] Care Team Providers Care Drafter Structural Name Role Phone Du PATTON, Elizabeth Primary Care Provider Jos Stafford Jr REASON FOR VISIT gerd, abn xr GI tract Encounters Encounter Location Date Provider Diagnosis [facility] [address] [place] [id number] 08/20/2024 Jos Huitron Jr Plan Of Treatment No Information Progress Notes * KEENAN GARZAMINEDOB:[birth year] (34 yo F)Acc No.[id number]:08/20/2024 EGD/MAC Patient: ANA SNYDER Provider: Kirit Huitron MD :1990 A ge:34 Y S ex:Female Date:08/20/2024 Address:[address] [place], [place] [phone] Pcp:Elizabeth Sandy MD Subjective: * Chief Complaints: [...] Date: 08/20/2024 Generated for Radha french/Tanvi/eTransmitting on: 10/24/2024 01:33 PM EDT
[2024-10-24] VITALS (8 sets, daily range): BP systolic 124–151; BP diastolic 86–100; PULSE 72–112; RESP 16–18; TEMP 36.4–36.6; O2SAT 98–100; BMI 34.9
[2024-10-24] MEDS: Lactated Ringers 1,000 ML 50 ML IVCONT (12:03)
[2024-10-24 12:04] LABS: UPreg QC Valid YES
--- NOTE | 2024-10-24 12:07 | HO.ANESPROP2 ---
HPI - Anesthesia Eval Consult details Narrative: 34 yo F presenting for EGD. History of difficult intubation PMFSH Active Problems Active Problems: All Active Problems (Updated 10/24/24 @ 12:03 by Brynn Carrasco RN) Vitamin D deficiency (Acute) Elevated liver enzymes (Acute) Recurrent biliary colic (Acute) Cholecystolithiasis (Acute) Vitamin B12 deficiency (Acute) Mass of left breast on mammogram (Acute) Hiatal hernia with GERD (Acute) Erosive gastritis (Acute) Cricopharyngeal achalasia (Acute) Family history of hypothyroidism (Acute) Past Medical History Medical History (Updated 10/24/24 @ 12:03 by Brynn Carrasco RN) Difficult intubation Vitamin B12 deficiency Mass of left breast on mammogram History of cholelithiasis Hiatal hernia with GERD Erosive gastritis Cricopharyngeal achalasia Family history of hypothyroidism Liver cyst Constipation Abdominal pain Acquired skin tag Constipation by delayed colonic transit Family history of breast cancer in first degree relative Screening for cervical cancer Screening-pulmonary TB Adult general medical exam COVID-19 Laboratory examination ordered as part of a routine general medical examination Overweight Potential exposure to STD Family History Family History Mother Ovarian cancer Maternal Grandmother Breast cancer Family history of problems with anesthesia: No Surgical History Surgical History (Updated 10/24/24 @ 12:03 by Brynn Carrasco RN) Hx of esophagogastroduodenoscopy Hx laparoscopic cholecystectomy (06/01/23) Hx of tonsillectomy History of Problems with Anesthesia: No Social History Social History Household Members: Significant Other Household Members Other:: daughter Housing: Apartment Alcohol intake: never Patient Tobacco Use Status: Never used Tobacco e-Cigarette/Vaping Use: Never Used Have you been hit, kicked, punched, or otherwise hurt by someone within the past year? 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 Sexual orientation: Straight/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 Gender identity: Female Cognitive needs: No Hearing needs: No Vision needs: Yes Meds Allergies Allergy/AdvReac Type Severity Reaction Status Date / Time Penicillins (PENICILLINS) Allergy Intermediate rash Verified 10/23/24 16:10 Active Medications: Current Medications Lactated Ringer's (Lr) 1,000 mls @ 50 mls/hr IVCONT .Q20H LAMINE Last Admin: 10/24/24 12:03 Dose: 50 mls/hr Home Medications ?Medication ?Instructions ?Recorded ?Confirmed ?Last Taken ?Type norethindrone acetate 1.5 1 tab PO DAILY 10/23/24 10/24/24 Unknown History mg-ethinyl estradiol 30 mcg tablet (Aurovela) Exam Exam Date and Time: 10/24/24 1200 Height,Weight and Vital Signs: Height 4 ft 11 in Weight 78.471 kg Last Vital Signs Temp 98 F 10/24/24 11:50 Pulse 80 10/24/24 11:50 Resp 18 10/24/24 11:50 BP 151/90 H 10/24/24 11:50 Pulse Ox 98 10/24/24 11:50 Pertinent Lab Results Pertinent Lab Results: Laboratory Tests 10/24/24 11:30 Urine Test NEGATIVE Airway Mallampati Class: I TM Dist: >3cm Neck ROM: Full Loose/Missing/Broken Teeth: No (patient denies any loose or broken teeth) Heart: S1S2 Lungs: CTAB Assessment and Plan Assessment Anesthesia Assessment: Anesthesia Plan Discussed and Chart Reviewed Final Anesthetic Review Family History of Problems with Anesthesia: No History of Problems with Anesthesia: No NPO: Yes ASA Class: II Final Preanesthetic Review: No Changes in Pt Med Stat, Meds/Allgs Chart Reviewed, Consent Obtained/Reviewed and Anes Risks/Benef Reviewed Patient Risk: Low Procedure Risk: Low Anesthetic Plan Anesthetic Plan: GA and Agree w/ Assess. and Plan Disposition: Standard PACU
--- NOTE | 2024-10-24 12:19 | P.HPSUR_ITS ---
Pre-Procedural Eval Section A - 24 Hr Update-Section A only Date of Service: 10/24/24 Section B - Complete if H&P > 30 days Chief Complaint: Dysphagia, unspecified Relevant Family History (Specify if Yes): No Relevant Social History: None Present Medications: see Short Stay Collaborative assessment Medical History: Significant History (Difficult intubation Vitamin B12 deficiency Mass of left breast on mammogram History of cholelithiasis Hiatal hernia with GERD Erosive gastritis Cricopharyngeal achalasia Family history of hypothyroidism Liver cyst Constipation Abdominal pain Acquired skin tag Consti pation by delayed colonic transit) History of Previous Operations: Relevant previous surgery/procedure and date(s) (Hx of esophagogastroduodenoscopy Hx laparoscopic cholecystectomy (06/01/23) Hx of tonsillectomy) Allergies: Allergies Allergy/AdvReac Type Severity Reaction Status Date / Time Penicillins (PENICILLINS) Allergy Intermediate rash Verified 10/23/24 16:10 Review of Systems Sugical H&P ROS: Negative: Constitution, Cardiovascular, Respiratory, Neurological, Psychiatric, Hem-Onc, Allergic/Immunologic, Gastrointestinal, Genitourinary, Musculoskeletal, Integumentary, Endocrine and Eyes/Ears/Nose/Throat Exam Surgical H&P Exam: Normal: HEENT, Normal: Heart, Normal: Lungs, Normal: Extremities, Normal: Abdomen, Normal: Skin and Normal: Neurological Plan Diagnosis/Plan: Unchanged I have reviewed the history and physical and performed a pertinent physical examination on my patient. No changes have occurred unless specified. Time Spent With Patient Time: Total time managing care of this patient today ____ minutes.
--- NOTE | 2024-10-24 12:47 | W.PM.OPN ---
Operative Note Operative Note Date of Service: 10/24/24 Narrative: Procedure Description: EGD Indication: dysphagia Anesthesia: GA FLEXIBLE TRANSORAL UPPER GASTROINTESTINAL ENDOSCOPY UPPER ENDOSCOPY Consent: Indications for the procedure and potential complications of bleeding, perforation, reaction to medications and missed diagnosis were discussed with the patient and informed consent was obtained. Instrument: Olympus GIF H 190 J mid size upper endoscope Monitoring: Vital signs and clinical assessment, continuous EKG monitoring, Pulse oximetry, Carbon Dioxide monitoring and blood pressure monitoring were done throughout the procedure. Procedure: The patient was placed in the left lateral decubitis position and pre-procedure medications were administered and a bite block was placed. The endoscope was inserted into the mouth and advanced under direct vision to the third part of duodenum. A careful inspection was made as the upper endoscope was withdrawn including a retroflexed examination of the proximal stomach; Findings and interventions are described below. Findings: Larynx:normal Esophagus: GE junction at 36 cm, diaphragm hiatus at 36 cm, normal mucosa - bx taken from distal and proximal esophagus, balloon dilation done to 20 mm at LES and UES, no tears seen Stomach: patchy erythema . Biopsies were obtained. Grade 2 flap valve on retroflexed examination of the cardia. Duodenum: Normal bulb and descending duodenum, Intervention: Biopsies as noted above, balloon dilation Impression/Findings: gastritis PLAN: if h pylori pos then treat GERD precautions ensure taking PPI correctly if ongoing dysphagia then manometry studies
[2024-10-24] MEDS: Mag&Al/Sim/Diphenhyd/Lidocaine 10 ML ORAL.SUSP PO (13:30)
--- OUTSIDE RECORDS SUMMARY | 2024-10-24 13:34 | XMS_ITS | Patient Health Record ---
Author Organization [facility] Address [address] [place] [phone] Care Team Providers Care Pipe Fitter Apprentice Name Role Phone Elizabeth Sandy MD Primary [...] Status Risk Notes Problem Gastroesophageal reflux disease ([id number]) GERD (gastroeso phageal reflux disease) (K21.9) Active confirmed Vital Signs Blood pressure diastolic 77 mm Hg 08/01/2024 Height 59 in 08/01/2024 Blood pressure systolic 111 mm Hg 08/01/2024 Weight 175 lbs 08/01/2024 BMI 35.34 kg/m2 08/01/2024 Encounters Encounter Location Date Provider Diagnosis [facility] [address] [place] [phone] 08/01/2024 Jos Huitron Jr GERD (gastroesophageal reflux disease) K21.9 and Abn findings-GI tract R93.3 [facility] [address] [place] [phone] 08/08/2024 Jos Huitron Jr Assessments Encounter Date [...] Insured Coverage Start Date Coverage End Date [facility] [email or web address] [facility] [address] [address] [place], [place] [id number] ANA GARZA Self - patient is the insured Medical (General) History Medical History History ICD Code Denies MD,DM,CVA,Lung disease,renal dise ase Surgical History Surgery Date(Month/Year) gallstones/cholecystectomy laparoscopic 2023
== END 2024-10-24 14:49 | disposition home or self-care (01) ==
PROVIDERS: Anesthesiology; PCP Internal Medicine; Visit Provider Internal Medicine Gastroenterology
PROC: 0DJ08ZZ Inspection of Upper Intestinal Tract, Via Natural or Artificial Opening Endoscopic (ICD-10-PCS; CPT 43235; principal; 2024-10-24 12:50)
DX: R13.10 Dysphagia, unspecified (principal); R10.13 Epigastric pain; R14.3 Flatulence; K29.50 Unspecified chronic gastritis without bleeding; B96.81 Helicobacter pylori [H. pylori] as the cause of diseases classified elsewhere; K44.9 Diaphragmatic hernia without obstruction or gangrene; K21.9 Gastro-esophageal reflux disease without esophagitis; K76.89 Other specified diseases of liver; K22.0 Achalasia of cardia; K59.01 Slow transit constipation; E53.8 Deficiency of other specified B group vitamins; Z80.3 Family history of malignant neoplasm of breast; E66.3 Overweight; Z68.34 Body mass index [BMI] 34.0-34.9, adult; Z90.49 Acquired absence of other specified parts of digestive tract; Z79.899 Other long term (current) drug therapy; Z88.0 Allergy status to penicillin
CPT/HCPCS: 43249; 43239; 81025; 88305; 88313; 88342; C1726; J0131; J2003; J2250; J2704; J3010

== ENCOUNTER → 2024-10-24 11:18 | Outpatient (BNV) | payer OTHER, SELFPAY | PROVIDERS: PCP Internal Medicine; Visit Provider Internal Medicine Gastroenterology | DX: R13.10 Dysphagia, unspecified (principal); K29.70 Gastritis, unspecified, without bleeding | CPT/HCPCS: 43249 ==

== ENCOUNTER 2024-11-11 09:21 | Emergency (ER) | payer OTHER, SELFPAY ==
--- OUTSIDE RECORDS SUMMARY | 2024-08-20 07:50 | XMS_ITS ---
Author Organization [facility] Address [address] [place] [phone] Care Team Providers Care Clinical Education Coordinator Name Role Phone Du PATTON, Elizabeth Primary Care Provider Jos Stafford Jr [phone] REASON FOR VISIT gerd, abn xr GI tract Encounters Encounter Location Date Provider Diagnosis [facility] Outpatient [address] [place] [id number] 08/20/2024 Jos Huitron Jr Plan Of Treatment No Information Progress Notes * KEENAN GARZAMINEDOB:[birth year] (34 yo F)Acc No.[id number]:08/20/2024 EGD/MAC Patient: ANA SNYDER Provider: Kirit Huitron MD :1990 A ge:34 Y S ex:Female Date:08/20/2024 Address:[address] [place], [place] [phone] Pcp:Elizabeth Sandy MD Subjective: * Chief Complaints: [...] MD Date: 0 08/20/2024 Generated for Radha french/Tanvi/eTransmitting on: 1 11:54 AM EDT
[2024-11-11 10:00] VITALS: BP 135/86; PULSE 83; RESP 15; TEMP 36.8; O2SAT 98; BMI 32.9
--- NOTE | 2024-11-11 10:01 | ED.ABDPAIN ---
HPI - Abdominal Pain General Chief Complaint: Abdominal Pain Stated Complaint: stomach bacteria, cant eat/ drink after antibiotic Time Seen by Provider: 11/11/24 09:53 Source: patient, RN notes reviewed and old records reviewed Mode of arrival: ambulatory History of Present Illness ED Provider: Nataly Payne PA-C HPI narrative: 34-year-old female with a past medical history cholelithiasis, GERD, erosive gastritis, cricotopharyngeal achalasia, H pylori - finished antibiotic treatment today - presenting to the ED complaining of nausea, chills, lower abdominal cramping, and bleeding when she wipes since starting antibiotics for H pylori (few weeks). Reports unclear if urinary or vaginal bleeding. Denies clots. Also reports some dark/black stool. Has been taking Pepto-Bismol. Denies vomiting, diarrhea/constipation. LMP multiple years due to being on OCP use. Denies vaginal discharge, dysuria, flank pain Related Data Home Medications ?Medication ?Instructions ?Recorded ?Confirmed norethindrone acetate 1.5 1 tab PO DAILY 10/23/24 10/24/24 mg-ethinyl estradiol 30 mcg tablet (Aurovela) Previous Rx's ?Medication ?Instructions ?Recorded pantoprazole 40 mg tablet,delayed 40 mg PO DAILY #30 tabs 08/21/24 release sennosides 8.6 mg tablet (Natural 17.2 mg (2 x 8.6 mg) PO BEDTIME 08/21/24 Senna Laxative) constipation #60 tabs cholecalciferol (vitamin D3) 50 50 mcg PO DAILY #90 caps 09/03/24 mcg (2,000 unit) capsule cyanocobalamin (vitamin B-12) 1,000 mcg PO DAILY #90 tabs 09/03/24 1,000 mcg tablet,extended release bismuth subsalicylate 262 mg 2 tab PO QID 14 days #112 tabs 10/29/24 chewable tablet doxycycline hyclate 100 mg capsule 100 mg PO BID 14 days #28 caps 10/29/24 metronidazole 500 mg tablet 1,000 mg (2 x 500 mg) PO BID #56 10/29/24 tabs ondansetron 4 mg disintegrating 4 mg PO Q8H PRN nausea and 10/29/24 tablet vomiting #30 tabs nitrofurantoin 100 mg PO Q12H 7 days #14 caps 11/11/24 monohydrate/macrocrystals 100 mg capsule (Macrobid) Allergies Allergy/AdvReac Type Severity Reaction Status Date / Time Penicillins (PENICILLINS) Allergy Intermediate rash Verified 11/11/24 10:02 Review of Systems Review of Systems Yes all other systems are reviewed and are negative Constitutional: Reports as per [facility] Past Medical History Attestation statement: The following information was validated with the patient. Source: old records reviewed Medical History Umbilical hernia Difficult intubation Vitamin B12 deficiency Mass of left breast on mammogram History of cholelithiasis Hiatal hernia with GERD Erosive gastritis Cricopharyngeal achalasia Family history of hypothyroidism Liver cyst Constipation Abdominal pain Acquired skin tag Constipation by delayed colonic transit Family history of breast cancer in first degree relative Screening for cervical cancer Screening-pulmonary TB Adult general medical exam COVID-19 Laboratory examination ordered as part of a routine general medical examination Overweight Potential exposure to STD Surgical History Hx of esophagogastroduodenoscopy Hx laparoscopic cholecystectomy (06/01/23) Hx of tonsillectomy Family History Family History Mother Ovarian cancer Maternal Grandmother Breast cancer Social History Social History Household Members: Significant Other Household Members Other:: daughter Housing: Apartment Alcohol intake: current Alcohol intake frequency: holidays/special occasions only Patient Tobacco Use Status: Never used Tobacco Smoked in Last 30 Days: No e-Cigarette/Vaping Use: Never Used Use of substances other than those prescribed or required for medical reasons: No Advance Directives: No Advance Directives Information Provided: No Do you have a plan to hurt others: No Plan Patient : No service: No Current occupational status: employed 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 Sexual orientation: Straight/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 Gender identity: Female Cognitive needs: No Hearing needs: No Vision needs: Yes Physical Exam ED Vital Signs: Vital Signs - 24 hr 11/11/24 13:28 11/11/24 14:39 Temperature 98.2 F 98.2 F Pulse Rate 98 98 Respiratory Rate 15 15 Blood Pressure 145/93 H 145/93 H Pulse Oximetry 100 100 Oxygen Delivery Method Room Air Room Air BMI result Body Mass Index 32.9 Const General: cooperative, healthy appearing and no acute distress Orientation/consciousness: patient oriented x3 Limitations: no limitations HENMT Head: Yes normal to inspection and Yes atraumatic Ears: hearing grossly normal bilaterally General nose exam: Normal external nose present Face and sinus: Yes normal facial exam Eyes General: appearance normal, both eyes and all related structures EOM: EOMs intact bilaterally Neck Neck: Yes normal visual inspection and Yes no meningeal signs Resp Effort & Inspection: normal respiratory effort and no respiratory distress Cardio Rate: regular rate Heart sounds: S1 normal heart sound present and S2 normal heart sound present GI Inspection: Yes normal to inspection Palpation (GI): Soft to palpation, nontender, no guarding and not rigid General: Yes no CVA tenderness Speculum Exam - Vagina: normal appearance of the vagina, vaginal bleeding (Small amount of bleeding in vault. ) and nontender Speculum Exam - Cervix: nontender Bimanual exam- vagina & uterus: normal bimanual exam, No Cervical tenderness present and no cervical motion tenderness OB/external & speculum: vaginal bleeding (Small amount of bleeding in vault. ) Back/Spine/Pelvis Back: no CVA tenderness Skin Rashes: no rashes Wounds: no wounds Neuro General: patient oriented x3, tone normal and no meningeal signs Cranial nerves: Yes CN's II-XII intact bilaterally Gait exam (Neuro): Normal gait present Extrem General: Yes normal to inspection Course Course Course Narrative: -1307--no leukocytosis. H/H stable. Labs are otherwise reassuring -UA contaminated however with elements of infection > will treat empirically with p.o. Macrobid > on pelvic exam small amount of vaginal bleeding noted in vaginal vault > suspect menstruation - low suspicion for STI although swabs obtained. Unlikely ovarian torsion/cyst or PID. On Re-palpation of abdomen remains soft and nontender. Patient does report mild symptomatic improvement > will defer imaging at this time -occult stool negative >1410--on re-evaluation patient reports mild symptomatic improvement. Tolerating p.o. in the ED. Recommended close continuous miner operator and GI follow-up. Patient verbalized understanding and is in agreement with the plan Results discussed with patient including worrisome signs and symptoms and strict return precautions, and when to return to the emergency department. They verbalized understanding and feel safe for discharge at this time. Medical Decision Making Medical Decision Making MDM Narrative: 34-year-old female with a past medical history cholelithiasis, GERD, erosive gastritis, cricotopharyngeal achalasia, H pylori - finished antibiotic treatment today - presenting to the ED complaining of nausea, chills, lower abdominal cramping, and bleeding when she wipes since starting antibiotics for H pylori. Also reports dark/black stool. On exam vital signs stable, NAD, nontoxic appearing, abdomen is soft and nontender, no CVAT. Concern for adverse reaction to antibiotics vs vs UTI vs AUB vs menstruation. Concern for possible occult GI bleed. Lower suspicion for ovarian torsion, appendicitis/diverticulitis, renal stones/pyelo or cholecystitis/lithiasis without abdominal tenderness on exam. Plan: Labs, UA, pelvic exam/STI testing Please refer to course for remaining clinical decision making, interpretation of labs/imaging results, and discussions with consultants and/or family members. Differential Diagnosis Differential Diagnoses: The differential diagnosis associated with the presentation includes As above Admission/Observation Consideration of admission/observation: Escalation of care including admission/observation considered Lab Data MDM Lab Attestation statement: I reviewed the patient's lab results. 11/11/24 10:30 11/11/24 12:33 Labs: Lab Results 11/11/24 11/11/24 11/11/24 Range/Units 10:30 12:33 13:08 WBC 8.6 (4.8-10.8) X10*3/uL RBC 4.81 (4.20-5.50) X10*6/uL Hgb 14.3 (12.0-16.0) g/dl Hct 42.3 (37.0-47.0) % MCV 87.9 (80.0-98.0) fL MCH 29.7 (27.0-33.0) pg MCHC 33.8 (31.0-35.0) g/dl RDW 13.2 (11.0-16.0) % Plt Count 298 D (160-400) X10*3/uL MPV 11.3 (9.4-12.3) fL Immature Gran % (Auto) 0.3 (0.0-0.4) % Neut % (Auto) 63.4 (45-73) % Lymph % (Auto) 29.7 (20-40) % Rusk % (Auto) 5.8 (2-11) % Eos % (Auto) 0.6 (0-4) % Baso % (Auto) 0.2 (0-2) % Lymph # (Auto) 2.6 (1.2-4.9) X10*3/uL Rusk # (Auto) 0.5 (0.1-1.2) X10*3/uL Eos # (Auto) 0.1 (0.0-0.4) X10*3/uL Baso # (Auto) 0.0 (0.0-0.2) X10*3/uL Abs Immat Gran (auto) 0.03 (0.00-0.03) X10*3/uL Absolute Neuts (auto) 5.5 (2.0-8.3) x10*3/uL Absolute Nucleated RBC 0.000 (0.0-0.012) X10*3/uL Nucleated RBC % (auto) 0.0 (0.0-0.2) /100WBC Sodium 138 (135-145) mmol/L Potassium 4.3 (3.3-5.1) mmol/L Chloride 110 H (96-108) mmol/L Carbon Dioxide 20 L (22-29) mmol/L Anion Gap 12 (12-20) BUN 12 (9-16) mg/dL Creatinine 0.67 (0.5-1.4) mg/dL Estim Creat Clear Calc 101.7 Estimated GFR > 60 Random Glucose 66 (60-115) mg/dL Calcium 8.0 L D (8.4-10.2) mg/dL Magnesium 1.8 (1.6-2.6) mg/dL Total Bilirubin 0.8 (0.0-1.0) mg/dL Direct Bilirubin 0.3 (0.0-0.5) mg/dL AST 31 (5-31) U/L ALT 31 (0-31) U/L Alkaline Phosphatase 50 (39-117) U/L Total Protein 6.2 L (6.5-8.0) g/dL Albumin 3.7 (3.5-5.0) g/dL Lipase 18 (8-78) U/L Urine Color Dark Yellow Urine Appearance Clear Urine pH 5.5 (5.0-9.0) Ur Specific Gower >= 1.030 H (1.005-1.025) Urine Protein 30 (1+) H (Neg-Trace) mg/dL Urine Glucose (UA) Negative (Negative) mg/dL Urine Ketones >=160 (Negative) mg/dL Urine Blood Moderate (2+) H (Negative) Urine Nitrite Positive H (Negative) Ur Leukocyte Esterase Moderate (2+) H (Negative) Urine RBC 3-5 H (0-2) /HPF Urine WBC 6-10 (0-5) /HPF Ur Squamous Epith Cells 11-20 (0-2) /HPF Urine Bacteria Trace (None Seen) Hyaline Casts 0-2 (0-2) /LPF Urine Test NEGATIVE (NEGATIVE) Stool Occult Blood NEGATIVE (NEGATIVE) Chlam trachomat DNA PCR NOT DETECTED (Not Detect.) N.gonorrhoeae DNA (PCR) NOT DETECTED (Not Detect.) T. vaginalis (PCR) NOT DETECTED (Not Detect) Bact vaginosis (PCR) NEGATIVE (Negative) C. krusei/glabrata (PCR) NOT DETECTED (Not Detect) She group (PCR) NOT DETECTED (Not Detect) Radiology Impression Discussion of test interpretation with radiology: I have reviewed the radiologist's reading. External Record Review External record reviewed: Inpatient record, Office record, Outpatient record, Prior outpatient labs, Prior outpatient radiology, Primary care record and Outside ED record Tests considered The following testing was considered but not selected: As above CT abdomen/pelvis and ultrasound considered however without abdominal tenderness deferred at this time. Prescription Management I considered prescription management with: Pain Medication and Antibiotic Chronic Conditions Patient?s care impacted by: Other Medications Administered Discontinued Medications Generic Name Dose Route Start Last Admin Trade Name Freq PRN Reason Stop Dose Admin Sodium Chloride 1,000 mls @ 999 mls/hr 11/11/24 10:15 11/11/24 11:32 Ns IV 11/11/24 11:15 Infused .Q1H1M LAMINE Infusion Metoclopramide HCl 10 mg 11/11/24 11:06 11/11/24 11:55 Metoclopramide Hcl 10 Mg/2 Ml Vial IVPUSH 11/11/24 11:07 10 mg ONCE ONE Administration Nitrofurantoin Macrocrystals 100 mg 11/11/24 13:04 11/11/24 13:35 Nitrofurantoin Monohyd/M-Cryst 100 Mg Capsule PO 11/11/24 13:05 100 mg ONCE ONE Administration Discharge Plan Discharge Clinical Impression: UTI (urinary tract infection), Abdominal discomfort Patient Disposition: Home, Self-Care Instructions: Urinary Tract Infection in Women (DC), Abdominal Pain (ED) Additional Instructions: You have a urinary tract infection. Macrobid as an antibiotic please take as prescribed until completion Please stay hydrated at home you. Practice a bland diet Please follow-up with your continuous miner operator and GI doctor. If her symptoms persist or worsen, you are unable to eat or drink have persistent abdominal pain, nausea/vomiting or fevers or vaginal bleeding/discharge return to the emergency department We did send vaginal swabs they are currently pending, you will be contacted with positive results only Prescriptions: New nitrofurantoin monohyd/m-cryst [Macrobid] 100 mg capsule 100 mg PO Q12H 7 Days Qty: 14 0RF Rx Instructions: must administer with a meal/food No Action cyanocobalamin (vitamin B-12) 1,000 mcg tablet extended release 1,000 mcg PO DAILY Qty: 90 0RF cholecalciferol (vitamin D3) 50 mcg (2,000 unit) capsule 50 mcg PO DAILY Qty: 90 3RF doxycycline hyclate 100 mg capsule 100 mg PO BID 14 Days Qty: 28 0RF metronidazole 500 mg tablet 1,000 mg PO BID Qty: 56 0RF bismuth subsalicylate 262 mg tablet,chewable 2 tab PO QID 14 Days Qty: 112 0RF ondansetron 4 mg tablet,disintegrating 4 mg PO Q8H PRN (Reason: nausea and vomiting) Qty: 30 0RF pantoprazole 40 mg tablet,delayed release (DR/EC) 40 mg PO DAILY Qty: 30 3RF Rx Instructions: take one tablet half an hour before breakfast sennosides [Natural Senna Laxative] 8.6 mg tablet 17.2 mg PO BEDTIME Qty: 60 3RF norethindrone ac-eth estradiol [Aurovela 1.5/30 (21)] 1.5-30 mg-mcg tablet 1 tab PO DAILY Referrals: [facility] [Provider Group, Gastroenterology] [facility] [Provider Group] Elizabeth Sandy MD [Primary Care Provider, Internal Medicine] Stand Alone Forms: Work/School Release Interventions: ED Discharge Assessment Last Done: 11/11/24 14:39 Discharge Date/Time: 11/11/24 14:39 Print Language: Lao
[2024-11-11 10:40] LABS: MANUAL DIFF FLAG NO
[2024-11-11 10:44] LABS: Hematocrit 42.3 % (37.0-47.0); Hemoglobin 14.3 g/dl (12.0-16.0); Imm Gran Abs Auto 0.03 X10*3/uL (0.00-0.03); Imm Gran Pct Auto 0.3 % (0.0-0.4); Lymphocytes Absolute Auto 2.6 X10*3/uL (1.2-4.9); Mean Corpuscular HGB Conc 33.8 g/dl (31.0-35.0); Mean Corpuscular Hemoglobin 29.7 pg (27.0-33.0); Mean Corpuscular Volume 87.9 fL (80.0-98.0); NRBC Abs Auto 0.000 X10*3/uL (0.0-0.012); NRBC Pct Auto 0.0 /100WBC (0.0-0.2); Platelet Count 298 X10*3/uL (160-400); Red Blood Count 4.81 X10*6/uL (4.20-5.50); White Blood Count 8.6 X10*3/uL (4.8-10.8)
[2024-11-11 10:46] LABS: Appearance Urine Clear; Glucose Urine UA Negative (Negative); PH 5.5 (5.0-9.0); Specific Gravity - Urine >= 1.030 (1.005-1.025); UMIC TRIGGER UACC YES
[2024-11-11 10:49] LABS: UPreg QC Valid YES
[2024-11-11 11:09] LABS: UACC Culture Trigger YES
--- OUTSIDE RECORDS SUMMARY | 2024-11-11 11:55 | XMS_ITS | Patient Health Record ---
Author Organization [facility] Address [address] [place] [phone] Care Team Providers Care Body Cleaner Name Role Phone Elizabeth Sandy MD Primary Care Provider Juan Huitron Jr, Jos Hernandez [phone] Allergies Allergen (clinical drug ingredient) Drug/Non Drug [...] Status Risk Notes Problem Gastroesophageal reflux disease ([id number]) GERD (gastroeso phageal reflux disease) (K21.9) Active confirmed Vital Signs Blood pressure diastolic 77 mm Hg 08/01/2024 Height 59 in 08/01/2024 Blood pressure systolic 111 mm Hg 08/01/2024 Weight 175 lbs 08/01/2024 BMI 35.34 kg/m2 08/01/2024 Encounters Encounter Location Date Provider Diagnosis [facility] [address] [place] [phone] 08/01/2024 Jos Huitron Jr GERD (gastroesophageal reflux disease) K21.9 and Abn findings-GI tract R93.3 [facility] [address] [place] [phone] 08/08/2024 Jos Huitron Jr Assessments Encounter Date [...] Insured Coverage Start Date Coverage End Date [facility] [employer] [facility] [address] [address] [place], [place] [id number] ANA GARZA Self - patient is the insured Medical (General) History Medical History History ICD Code Denies CT,DM,CVA,Lung disease,renal dise ase Surgical History Surgery Date(Month/Year) gallstones/cholecystectomy laparoscopic 2023
[2024-11-11 11:56] VITALS: BP 114/68; PULSE 72; RESP 15; TEMP 36.7; O2SAT 100
[2024-11-11 12:57] LABS: Alanine Aminotransferase 31 U/L (0-31); Albumin Level 3.7 g/dL (3.5-5.0); Alkaline Phosphatase 50 U/L (39-117); Anion Gap 12 (12-20); Aspartate Amino Transferase 31 U/L (5-31); Blood Urea Nitrogen 12 mg/dL (9-16); Calcium 8.0 mg/dL (8.4-10.2); Carbon Dioxide 20 mmol/L (22-29); Chloride 110 mmol/L (96-108); Creatinine Clr Calc Pharmacy 101.7; Estimated Glomerular Filt Rate > 60; Lipase 18 U/L (8-78); Magnesium 1.8 mg/dL (1.6-2.6); Potassium 4.3 mmol/L (3.3-5.1); Sodium 138 mmol/L (135-145); Total Protein 6.2 g/dL (6.5-8.0)
[2024-11-11 13:18] LABS: OBS Int Ctl Valid YES; OBS1 NEGATIVE (NEGATIVE)
--- NOTE | 2024-11-11 13:23 | PC.NURSE ---
pelvic exam performed by JEANETTE Ingram. chaperoned by this RN. swabs obtained/sent to lab.
[2024-11-11 13:28] VITALS: BP 145/93; PULSE 98; RESP 15; TEMP 36.8; O2SAT 100
[2024-11-11 14:39] VITALS: BP 145/93; PULSE 98; RESP 15; TEMP 36.8; O2SAT 100
[2024-11-11 14:49] LABS: CT PCR NOT DETECTED (Not Detect.); NG PCR NOT DETECTED (Not Detect.)
[2024-11-11 16:12] LABS: Bacterial Vaginosis PCR NEGATIVE (Negative); Candida Group PCR NOT DETECTED (Not Detect); Candida glab krusei PCR NOT DETECTED (Not Detect); Trichomonas vaginalis PCR NOT DETECTED (Not Detect)
== END 2024-11-11 14:39 | disposition home or self-care (01) ==
PROVIDERS: Physician Assistant; Emergency Provider Emergency Medicine; PCP Internal Medicine
DX: N39.0 Urinary tract infection, site not specified (principal); R10.30 Lower abdominal pain, unspecified; R11.0 Nausea
CPT/HCPCS: 36415; 80048; 80076; 81001; 81025; 81515; 82272; 83690; 83735; 85025; 87086; 87491; 87591; 96361; 96374; 99284; 99285; J2765

== ENCOUNTER 2024-12-09 11:38 | Outpatient (AMB) | payer OTHER, SELFPAY ==
--- OUTSIDE RECORDS SUMMARY | 2024-08-20 06:50 | XMS_ITS ---
Author Organization [facility] Address [address] [place] [phone] Care Team Providers Care Kiln Door Repairer Name Role Phone Du PATTON, Elizabeth Primary Care Provider Jos Stafford Jr REASON FOR VISIT gerd, abn xr GI tract Encounters Encounter Location Date Provider Diagnosis [facility] [address] [place] [id number] 08/20/2024 Jos Huitron Jr Plan Of Treatment No Information Progress Notes * KEENAN GARZAMINEDOB:[birth year] (34 yo F)Acc No.[id number]:08/20/2024 EGD/MAC Patient: ANA SNYDER Provider: Kirit Huitron MD :1990 A ge:34 Y S ex:Female Date:08/20/2024 Address:[address] [place], [place] [phone] Pcp:Elizabeth Sandy MD Subjective: * Chief Complaints: * 1 . gerd, abn xr GI tract. * Medical History: Objective: * Vitals: Assessment: Plan: * Treatment: * * The named appointment provid er may or may not be the originator of this progress note, and it is not deemed complete until electronically signed by the appointment provider. Sign off status: Pending * Provider: Kirit Huitron MD Date: 0 08/20/2024 Generated for Radha french/Tanvi/Angelaitting on: 02/09/2024 02:49 PM EST
[2024-12-09 11:39] VITALS: BP 136/86; PULSE 84; O2SAT 98; BMI 33.3
--- NOTE | 2024-12-09 11:39 | A.OFFVIS_ITS ---
Vital Signs 12/09/24 11:39 Height 4 ft 11 in Weight 165 lb BMI 33.3 BP 136/86 Blood Pressure Location Rt brachial Position Sitting Pulse 84 Pulse Source Pulse Oximeter Pulse Oximetry (%) 98 Oxygen Delivery Method Room Air Intake Visit Reasons: S/P FUV. Review EGD results Intake Note: Est pt for mgmt of gastritis, achalasia. S/P EGD. CC; Pt denies any new GI concerns or sx at this time. Pt confirms she finished the abx course and has been doing overall, much better. Draw Frame Operator Required: No Accompanied by: Self / Same As Patient Allergies Penicillins (PENICILLINS) Allergy (Intermediate, Verified 12/09/24 11:40) rash HPI HPI S/P FUV. Review EGD results: Details: LAST VISIT: Cholecystolithiasis Elevated liver enzymes Postprandial epigastric pain Dyspepsia Constipation Plan Patient will continue her current therapy with PPI. Instructed to take it half an hour before breakfast every morning. Able to schedule patient for upper endoscopy till for tomorrow. She will follow-up in the office after. Pending biopsy treatment for H pylori if positive. Will need to evaluate successful eradication of the bacteria in the near future if positive. Discussed with patie nt avoiding dietary triggers and late night snacking. Staying upright for minimum 3 hours after meals discussed with patient. Patient will follow-up with us after the procedure, sooner on as needed basis. She is agreeable to this plan and verbalizes understanding of instructions. She was given the opportunity to ask questions and all questions answered. ? UPPER ENDOSCOPY: Findings: Larynx:normal Esophagus: GE junction at 36 cm, diaphragm hiatus at 36 cm, normal mucosa - bx taken from distal and proximal esophagus, balloon dilation done to 20 mm at LES and UES, no tears seen Stomach: patchy erythema . Biopsies were obtained. Grade 2 flap valve on retroflexed examination of the cardia. Duodenum: Normal bulb and descending duodenum, Intervention: Biopsies as noted above, balloon dilation Impression/Findings: gastritis PLAN: if h pylori pos then treat GERD precautions ensure taking PPI correctly if ongoing dysphagia then manometry studies PATHOLOGY: Diagnosis A. Stomach, biopsy: - Antral-type and oxyntic mucosa with moderate chronic active inflammation. - Positive for H pylori. B. Esophagus, distal, biopsy: Squamous epithelium within normal limits; no inflammation seen. C. Esophagus, proximal, biopsy: Squamous epithelium within normal limits; no inflammation seen. TODAY'S VISIT: Patient is here today for follow-up and to discuss upper GI series results. Patient was diagnosed with H pylori on her biopsy. Was placed on antibiotic. Patient reports that she finish all of the antibiotics, however she suffered with severe epigastric discomfort, nausea and vomiting as well as diarrhea. Patient however now is feeling better. She is taking pantoprazole currently and reports that her symptoms of acid reflux have been suppressed for the most part. Patient will need to be retested in 4 weeks for eradication of the bacteria. Patient reports that she also changed her diet and doing much better. Patient had normal esophagus gastritis with chronic active inflammation. [facility] Medical History (Updated 12/09/24 @ 19:49 by Toshia Canales, [facility]) Helicobacter pylori (H. pylori) Umbilical hernia Difficult intubation Vitamin B12 deficiency Mass of left breast on mammogram History of cholelithiasis Hiatal hernia with GERD Erosive gastritis Cricopharyngeal achalasia Family history of hypothyroidism Liver cyst Constipation Abdominal pain Acquired skin tag Constipation by delayed colonic transit Family history of breast cancer in first degree relative Screening for cervical cancer Screening-pulmonary TB Adult general medical exam COVID-19 Laboratory examination ordered as part of a routine general medical examination Overweight Potential exposure to STD Surgical History Hx of esophagogastroduodenoscopy Hx laparoscopic cholecystectomy (06/01/23) Hx of tonsillectomy Family History Mother Ovarian cancer Maternal Grandmother Breast cancer Social History Household Members: Significant Other Household Members Other:: daughter Housing: Apartment Alcohol intake: current Alcohol intake frequency: holidays/special occasions only Patient Tobacco Use Status: Never used Tobacco e-Cigarette/Vaping Use: Never Used service: No Current occupational status: employed 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 Sexual orientation: Straight/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 Gender identity: Female Cognitive needs: No Hearing needs: No Vision needs: Yes Female Reproductive History Menstrual Age of Menarche: 7 Physical Exam Vital Signs: Last Vital Signs Pulse 84 12/09/24 11:39 BP 136/86 12/09/24 11:39 Pulse Ox 98 12/09/24 11:39 Oxygen Delivery Method Room Air 12/09/24 11:39 BMI result Body Mass Index 33.3 Assessment & Plan Assessment & Plan (1) Erosive gastritis: Code(s): K29.60 - Other gastritis without bleeding Category: Medical (2) Cricopharyngeal achalasia: Code(s): K22.0 - Achalasia of cardia Category: Medical (3) Cholecystolithiasis: Code(s): K80.20 - Calculus of gallbladder without cholecystitis without obstruction Category: Medical Qualifiers: Cholecystitis presence: without cholecystitis Biliary obstruction: without biliary obstruction Qualified Code(s): K80.20 - Calculus of gallbladder without cholecystitis without obstruction (4) Elevated liver enzymes: Code(s): R74.8 - Abnormal levels of other serum enzymes Category: Medical (5) Hiatal hernia with GERD: Code(s): K44.9 - Diaphragmatic hernia without obstruction or gangrene; K21.9 - Gastro- esophageal reflux disease without esophagitis Category: Medical (6) Helicobacter pylori (H. pylori): Code(s): A04.8 - Other specified bacterial intestinal infections Category: Medical Plan Patient will continue taking PPI. She will return in 4 weeks to retest for H pylori. Patient will stop PPI 2 weeks, start famotidine instead of PPI, however patient was encouraged to stop famotidine 24 hours before coming in for testing. Medications: New famotidine (Pepcid) 20 mg PO BID 30 tabs 0RF K29.70 - Gastritis, unspecified, without bleeding Coding Level of Care Code Est Pt Level 4 (27149) Diagnoses Erosive gastritis K29.60 Cricopharyngeal achalasia K22.0 Calculus of gallbladder without cholecystitis without obstruction K80.20 Cholecystitis presence: without cholecystitis Biliary obstruction: without biliary obstruction Elevated liver enzymes R74.8 Hiatal hernia with GERD K44.9; K21.9 Helicobacter pylori (H. pylori) A04.8 Time Spent (min) 35 Comment 25 minutes spent with patient and additional 10 minutes spent reviewing her records
--- OUTSIDE RECORDS SUMMARY | 2024-12-09 14:50 | XMS_ITS | Patient Health Record ---
Author Organization [facility] Address [address] [place] [phone] Care Team Providers Care Hosting Engineer Name Role Phone Elizabeth Sandy MD Primary [...] Status Risk Notes Problem Gastroesophageal reflux disease (989825268) GERD (gastroeso phageal reflux disease) (K21.9) Active confirmed Vital Signs Blood pressure diastolic 77 mm Hg 08/01/2024 Height 59 in 08/01/2024 Blood pressure systolic 111 mm Hg 08/01/2024 Weight 175 lbs 08/01/2024 BMI 35.34 kg/m2 08/01/2024 Encounters Encounter Location Date Provider Diagnosis [facility] [address] [place] [phone] 08/01/2024 Jos Huitron Jr GERD (gastroesophageal reflux disease) K21.9 and Abn findings-GI tract R93.3 [facility] [address] [place] [phone] 08/08/2024 Jos Huitron Jr Assessments Encounter Date [...] Insured Coverage Start Date Coverage End Date [facility] [employer] [facility] [address] [address] [place], [place] [id number] ANA GARZA Self - patient is the insured Medical (General) History Medical History History ICD Code Denies [place],DM,CVA,Lung disease,renal dise ase Surgical History Surgery Date(Month/Year) gallstones/cholecystectomy laparoscopic 2023
== END 2024-12-09 12:07 | disposition home or self-care (01) ==
LOC: HO.HGI 11:38
PROVIDERS: PCP Internal Medicine; Visit Provider Nurse Practitioner Family
DX: K29.60 Other gastritis without bleeding (principal); K22.0 Achalasia of cardia; K80.20 Calculus of gallbladder without cholecystitis without obstruction; R74.8 Abnormal levels of other serum enzymes; K44.9 Diaphragmatic hernia without obstruction or gangrene; K21.9 Gastro-esophageal reflux disease without esophagitis; A04.8 Other specified bacterial intestinal infections
CPT/HCPCS: 99214

== ENCOUNTER → 2024-12-09 11:38 | Outpatient (BNVA) | payer OTHER, SELFPAY | PROVIDERS: PCP Internal Medicine; Visit Provider Nurse Practitioner Family | DX: K29.60 Other gastritis without bleeding (principal); K22.0 Achalasia of cardia; K80.20 Calculus of gallbladder without cholecystitis without obstruction; R74.8 Abnormal levels of other serum enzymes; K44.9 Diaphragmatic hernia without obstruction or gangrene; K21.9 Gastro-esophageal reflux disease without esophagitis; A04.8 Other specified bacterial intestinal infections | CPT/HCPCS: 99212 ==

== ENCOUNTER 2025-01-09 15:21 | Outpatient (AMB) | payer OTHER, SELFPAY ==
--- NOTE | 2025-01-09 15:44 | AM.OFFVISNUR ---
Intake Visit Reasons: HP Breath Test. HOLD PPI. R/S due to weather Allergies Penicillins (PENICILLINS) Allergy (Intermediate, Verified 01/09/25 15:50) rash Nursing Note Patient presents for collection of?H Pylori?breath test. Patient has been fasting for 1 hour (nothing to eat, drink, no chewing gum or smoking) has not taken any antacid medication for at least 2 weeks and has no allergies to artificial sweeteners.?? <del>?</del> <del>?</del> <del>?</del> <del>?</del> <del>?</del> <del>?</del> <del>?</del> <del>?</del> <del>?</del> <del>?</del> <del>?</del> <del>?</del> <del>?</del> <del>?</del> <del>?</del> <del>?</del> <del>?</del> <del>?</del> <del>?</del> <del>?</del> <del>?</del> <del>?</del> <del>?</del> <del>?</del> <del>?</del> <del>?</del> <del>?</del> <del>?</del> <del>?</del> <del>?</del> <del>?</del> <del>?</del> <del>?</del> <del>?</del> <del>?</del> <del>?</del> <del>?</del> <del>?</del> <del>?</del> <del>?</del> <del>?</del> <del>?</del> <del>?</del> <del>?</del> <del>?</del> <del>?</del> <del>?</del> <del>?</del> <del>?</del> <del>?</del> <del>?</del> <del>?</del> <del>?</del> <del>?</del> <del>?</del> <del>?</del> <del>?</del> <del>?</del> <del>?</del> <del>?</del> <del>?</del> <del>?</del> <del>?</del> <del>?</del> <del>?</del> <del>?</del> <del>?</del> <del>?</del> <del>?</del> <del>?</del> <del>?</del> <del>?</del> <del>?</del> <del>?</del> <del>?</del> <del>??</del> Assessment & Plan Assessment & Plan (1) Hiatal hernia with GERD: Code(s): K44.9 - Diaphragmatic hernia without obstruction or gangrene; K21.9 - Gastro-esophageal reflux disease without esophagitis Category: Medical Plan Patient presents for collection of?H Pylori?breath test. Patient has been fasting for 1 hour (nothing to eat, drink, no chewing gum or smoking) has not taken any antacid medication for at least 2 weeks and has no allergies to artificial sweeteners.???This test checks for an overgrowth of bacteria in your stomach. We all have bacteria but some may have more than others. It is treatable. if the test comes back negative there is nothing else to do. If the test result is positive we will treat you with 2 antibiotics and a medication to decrease the acid in your stomach (PPI) for 2 weeks. Two weeks after you have completed the treatment we will retest you to make sure the overgrowth has resolved. Patient Instructions: Process for specimen collection and reason for testing was explained to the patient. Specimen collection. Patient instructed to take a deep breath and then exhale into the blue bag, filling it up as much as possible. Patient instructed to drink a mixture of water and the artificial sweetener with a straw. A 15 minute wait period was observed. Patient instructed to take a deep breath and then exhale into the pink bag, filling it up as much as possible.?? Coding Level of Care Code Established Pt Est Pt Level 1 (26117) Patient Type Established Diagnoses Hiatal hernia with GERD K44.9; K21.9
== END 2025-01-09 16:02 | disposition home or self-care (01) ==
LOC: HO.HGI 15:22
PROVIDERS: PCP Internal Medicine; Visit Provider Nurse Practitioner Family
DX: K44.9 Diaphragmatic hernia without obstruction or gangrene (principal); K21.9 Gastro-esophageal reflux disease without esophagitis

== ENCOUNTER 2025-01-09 15:21 | Outpatient (REF) | payer OTHER, SELFPAY ==
--- OUTSIDE RECORDS SUMMARY | 2025-01-10 19:53 | XMS_ITS | Patient Health Record ---
Author Organization [facility] Address [address] [place] [phone] Care Team Providers Care Material Preparation Worker Name Role Phone Elizabeth Sandy MD Primary Care Provider Jos Stafford Jr [phone] Allergies Allergen (clinical drug ingredient) Drug/Non Drug Allergy documented on EMR Reaction Allergy Type Onset Date Status Penicillin Unknown Drug Allergy Active Reason For Referral No Information Medications Medication SIG (Take, Route, Frequency, Duration) Notes Start Date End Date Status Omeprazole 40 MG Capsule Delayed Release 1 capsule 1/2 to 1 hour before morning meal Orally Once a day Active Social History Tobacco Use: Social History Observation Description Date Details (start date - stop date) Never Smoker NA - NA Social History Drug/Alcohol: Social Info Question Answer Notes AUDIT-C (Standard) Did you have a drink containing alcohol in the past year? No Points 0 Interpretation Negative Tobacco Use: Social Info Question Answer Notes Tobacco Control (Standard) Tobacco use: Nonsmoker Additional Details Category Social Info Options Details Miscellaneous: Marital status: single Occupation: resident living Problems Problem Type SNOMED Code ICD Code Onset Dates Problem Status W/U Status Risk Notes Problem Gastroesophageal reflux disease ([id number]) GERD (gastroeso phageal reflux disease) (K21.9) Active confirmed Vital Signs Blood pressure diastolic 77 mm Hg 08/01/2024 Height 59 in 08/01/2024 Blood pressure systolic 111 mm Hg 08/01/2024 Weight 175 lbs 08/01/2024 BMI 35.34 kg/m2 08/01/2024 Encounters Encounter Location Date Provider Diagnosis [facility] [address] [place] [phone] 08/01/2024 Jos Huitron Jr GERD (gastroesophageal reflux disease) K21.9 and Abn findings-GI tract R93.3 [facility] [address] [place] [address] 08/08/2024 Jos Huitron Jr Assessments Encounter Date [...] Insured Coverage Start Date Coverage End Date [facility] [address] [address] [place], [place] [id number] ANA GARZA Self - patient is the insured Medical (General) History Medical History History ICD Code Denies [place],DM,CVA,Lung disease,renal dise ase Surgical History Surgery Date(Month/Year) gallstones/cholecystectomy laparoscopic 2023
== END 2025-01-09 15:22 | disposition home or self-care (01) ==
LOC: HO.LNP 15:21
PROVIDERS: Nurse Practitioner; PCP Internal Medicine; Visit Provider Nurse Practitioner Family
DX: A04.8 Other specified bacterial intestinal infections (principal)
CPT/HCPCS: 83013; 99211

== ENCOUNTER 2025-01-20 07:46 | Outpatient (REF) | payer OTHER, SELFPAY ==
--- OUTSIDE RECORDS SUMMARY | 2025-01-20 07:49 | XMS_ITS | Patient Health Record ---
Author Organization [facility] Address [address] [place] [phone] Care Team Providers Care Commercial Carpet Installer Name Role Phone Elizabeth Sandy MD Primary Care Provider Jos Stafford Jr Allergies Allergen (clinical drug ingredient) Drug/Non Drug [...] Status Risk Notes Problem Gastroesophageal reflux disease ([id number]) GERD (gastroeso phageal reflux disease) (K21.9) Active confirmed Vital Signs Blood pressure diastolic 77 mm Hg 08/01/2024 Height 59 in 08/01/2024 Blood pressure systolic 111 mm Hg 08/01/2024 Weight 175 lbs 08/01/2024 BMI 35.34 kg/m2 08/01/2024 Encounters Encounter Location Date Provider Diagnosis [facility] [address] [place] [phone] 08/01/2024 Jos Huitron Jr GERD (gastroesophageal reflux disease) K21.9 and Abn findings-GI tract R93.3 [facility] [address] [place] [address] 08/08/2024 Jos Huitron Jr Assessments Encounter Date [...] Insured Coverage Start Date Coverage End Date [facility] [address] [address] [place], [place] [id number] ANA GARZA Self - patient is the insured Medical (General) History Medical History History ICD Code Denies [place],DM,CVA,Lung disease,renal dise ase Surgical History Surgery Date(Month/Year) gallstones/cholecystectomy laparoscopic 2023
[2025-01-20 10:46] LABS: Anion Gap 10 (12-20); Blood Urea Nitrogen 10 mg/dL (9-16); Calcium 8.8 mg/dL (8.4-10.2); Carbon Dioxide 24 mmol/L (22-29); Chloride 110 mmol/L (96-108); Estimated Glomerular Filt Rate > 60; Potassium 3.8 mmol/L (3.3-5.1); Sodium 140 mmol/L (135-145)
[2025-01-20 11:05] LABS: Folate 9.1 ng/mL (> or = 4.0); Vitamin B12 276 pg/mL (200-900)
[2025-01-20 11:29] LABS: Resp Syncy Virus RNA Qual PCR NEGATIVE (Negative); SARS COV2 PCR INHOUSE POSITIVE (Negative)
== END 2025-01-20 07:47 | disposition home or self-care (01) ==
LOC: HO.HMGCLDS 07:46
PROVIDERS: Nurse Practitioner Family; PCP Internal Medicine; Visit Provider Internal Medicine
DX: Z01.84 Encounter for antibody response examination (principal); J06.9 Acute upper respiratory infection, unspecified; J02.9 Acute pharyngitis, unspecified; E55.9 Vitamin D deficiency, unspecified; E53.8 Deficiency of other specified B group vitamins; K44.9 Diaphragmatic hernia without obstruction or gangrene; K21.9 Gastro-esophageal reflux disease without esophagitis
CPT/HCPCS: 36415; 80048; 82306; 82607; 82746; 83921; 86340; 87637; 99212

== ENCOUNTER 2025-01-20 08:01 | Outpatient (AMB) | payer OTHER, SELFPAY ==
--- NOTE | 2025-01-20 08:05 | MHC.OFFWIV ---
Intake Vital Signs 01/20/25 08:06 Height 4 ft 11 in Weight 166 lb BMI 33.5 BP 128/80 Blood Pressure Location Lt brachial Position Sitting Pulse 94 Pulse Source Pulse Oximeter Temp 97.8 F Temp Source Oral Pulse Oximetry (%) 98 Oxygen Delivery Method Room Air Intake Visit Reasons: EP cough headaches congestion Intake Note: Patient presents c/o sinus congestion, body aches, cough, sore throat, headaches, dizziness x3 days. Patient Tobacco Use Status: Never used Tobacco Allergies Penicillins (PENICILLINS) Allergy (Intermediate, Verified 01/20/25 08:08) rash Do you need a note to return to daycare/school/sports/work: Yes HPI HPI Comments History of Present Illness Details 34-year-old female presents to the walk-in clinic with complaints of upper respiratory symptoms for the past 3 days. Patient reports sinus congestion, cough, sore throat, body aches, headaches, and dizziness. She has tried multiple [id number] medications with minimal relief. Denies measured fevers, chills, nausea, or vomiting. Reports subjective fevers at home. No chest pain or shortness of breath reported. [facility] Medical History (Updated 01/20/25 @ 08:22 by hSanel Solorzano NP) Acute respiratory disease Helicobacter pylori (H. pylori) Umbilical hernia Difficult intubation Vitamin B12 deficiency Mass of left breast on mammogram History of cholelithiasis Hiatal hernia with GERD Erosive gastritis Cricopharyngeal achalasia Family history of hypothyroidism Liver cyst Constipation Abdominal pain Acquired skin tag Constipation by delayed colonic transit Family history of breast cancer in first degree relative Screening for cervical cancer Screening-pulmonary TB Adult general medical exam COVID-19 Laboratory examination ordered as part of a routine general medical examination Overweight Potential exposure to STD Surgical History Hx of esophagogastroduodenoscopy Hx laparoscopic cholecystectomy (06/01/23) Hx of tonsillectomy Family History Mother Ovarian cancer Maternal Grandmother Breast cancer Social History Household Members: Significant Other Household Members Other:: daughter Housing: Apartment Alcohol intake: current Alcohol intake frequency: holidays/special occasions only Patient Tobacco Use Status: Never used Tobacco e-Cigarette/Vaping Use: Never Used service: No Current occupational status: employed 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 Sexual orientation: Straight/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 Gender identity: Female Cognitive needs: No Hearing needs: No Vision needs: Yes Female Reproductive History Menstrual Age of Menarche: 7 Review of Systems Const All systems reviewed & are unremarkable except as noted in HPI and below Physical Exam Vital Signs: Last Vital Signs Temp 97.8 F 01/20/25 08:06 Pulse 94 01/20/25 08:06 BP 128/80 01/20/25 08:06 Pulse Ox 98 01/20/25 08:06 Oxygen Delivery Method Room Air 01/20/25 08:06 BMI result Body Mass Index 33.5 Const General: no acute distress; No comfortable Nutritional Appearance: well nourished Orientation/consciousness: patient oriented x3 HEENT Head: Yes normocephalic Ears: external ears normal and TM abnormal with fluid behind the TM bilateral General nose exam: Nasal discharge present Face and sinus: Yes sinuses nontender Mouth: moist mucous membranes and Abnormal oral and palatal mucosa present erythematous Throat: Yes uvula midline and Yes abnormal tonsil (Enlarged Tonsils +2) Resp Effort & Inspection: normal respiratory effort, able to speak in complete sentences and Actively coughing Auscultation: clear to auscultation bilaterally, no crackles, no rales, no rhonchi and no wheezes Cardio Heart sounds: S1 normal heart sound present and S2 normal heart sound present Neuro General: patient oriented x3, gait normal and moves all extremities Psych Speech and movement: Normal speech and movement present Assessment & Plan Assessment & Plan (1) Acute respiratory disease: Code(s): J06.9 - Acute upper respiratory infection, unspecified Plan: Ordered SARs. Supportive care discussed Encourage increased oral fluids and rest Continue OTC medications as needed for symptom relief (acetaminophen or ibuprofen for body aches/headache; decongestants as tolerated) Saline nasal spray and/or intranasal steroid recommended for congestion Throat lozenges, warm saltwater gargles for sore throat Educated patient on viral illness course and expected symptom duration Orders: Orders SARS-CoV2/FLU/RSV Today J06.9 - Acute upper respiratory infection, unspecified Coding Level of Care Code Est Pt Level 4 (43193) Diagnoses Acute respiratory disease J06.9 Time Spent (min) 20
[2025-01-20 08:06] VITALS: BP 128/80; PULSE 94; TEMP 36.6; O2SAT 98; BMI 33.5
== END 2025-01-20 08:41 | disposition home or self-care (01) ==
PROVIDERS: PCP Internal Medicine; Visit Provider Nurse Practitioner Family
DX: J06.9 Acute upper respiratory infection, unspecified (principal)

== ENCOUNTER 2025-02-05 15:18 | Outpatient (AMB) | payer OTHER, SELFPAY ==
[2025-02-05 15:22] VITALS: BP 110/80; PULSE 75; TEMP 36.9; O2SAT 99; BMI 34.1
--- NOTE | 2025-02-05 15:22 | A.OFFPC_ITS ---
Vital Signs 02/05/25 15:22 Height 4 ft 11 in Weight 169 lb BMI 34.1 BP 110/80 Blood Pressure Location Rt brachial Position Sitting Pulse 75 Pulse Source Pulse Oximeter Temp 98.4 F Temp Source Oral Pulse Oximetry (%) 99 Oxygen Delivery Method Room Air Intake Visit Reasons: PE reschedule Intake Note: 34-year-old lady with history of vitamin-D deficiency, vitamin B12 deficiency, H pylori gastritis status post treatment, here today for her physical exam. Allergies Penicillins (PENICILLINS) Allergy (Intermediate, Verified 02/05/25 15:30) rash Tobacco use date assessed: 04/19/24 Dental Screening Dental Screen Date: 02/05/25 Did you have a dental visit in the last 12 months?: No Did you have a dental problem in the last 6 months where you did not have access to dental care?: No Was dental information given to patient?: Patient has dentist HPI PE reschedule HPI Details 34-year-old lady with history of H pylor i status post treatment, history of vitamin B12 vitamin-D deficiency, here today for her physical exam. She is up-to-date with her cervical cancer screening, had her last Pap smear done earlier this year with negative findings, goes to [facility] and has an appointment for follow-up next year already scheduled. Recently diagnosed with COVID infection earlier this month, currently asymptomatic. Denies any further episodes of abdominal pain after treatment for her H pylori infection. History of cholelithiasis status post laparoscopic cholecystectomy. Does not want to get COVID booster or flu vaccine, up-to-date with her Tdap. PFSH Medical History (Updated 02/05/25 @ 16:33 by Elizabeth Sandy MD) History of COVID-19 History of Helicobacter pylori infection Umbilical hernia Difficult intubation Mass of left breast on mammogram History of cholelithiasis Hiatal hernia with GERD Family history of hypothyroidism Liver cyst Abdominal pain Acquired skin tag Family history of breast cancer in first degree relative Screening for cervical cancer Screening-pulmonary TB Adult general medical exam Laboratory examination ordered as part of a routine general medical examination Overweight Potential exposure to STD Surgical History (Updated 02/05/25 @ 16:33 by Elizabeth Sandy MD) Hx of esophagogastroduodenoscopy Hx laparoscopic cholecystectomy (06/01/23) Hx of tonsillectomy Family History Mother Ovarian cancer Maternal Grandmother Breast cancer Social History (Reviewed 02/05/25 @ 15:25 by Lindsay Johnson [facility]) Household Members: Significant Other Household Members Other:: daughter Housing: Apartment Alcohol intake: current Alcohol intake frequency: holidays/special occasions only Patient Tobacco Use Status: Never used Tobacco e-Cigarette/Vaping Use: Never Used service: No Current occupational status: employed Current occupation: [employer] Sexual orientation: Straight/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 Gender identity: Female Cognitive needs: No Hearing needs: No Vision needs: Yes Female Reproductive History Menstrual Age of Menarche: 7 Questionnaire PHQ-9 Over the last 2 weeks, how often have you been bothered by any of the following problems? 1. Little interest or pleasure in doing things: not at all 2. Feeling down, depressed, or hopeless: not at all 3. Trouble falling or staying asleep, or sleeping too much: several days 4. Feeling tired or having little energy: not at all 5. Poor appetite or overeating: more than half the days 6. Feeling bad about yourself - or that you are a failure or have let yourself or your family down: not at all 7. Trouble concentrating on things, such as reading the newspaper or watching television: not at all 8. Moving or speaking so slowly that other people could have noticed. Or the opposite - being so fidgety or restless that you have been moving around a lot more than usual: not at all 9. Thoughts that you would be better off or of hurting yourself in some way: not at all Total score: 3 Depression Screening Interpretation: Negative Depression Screening Done: Yes 36956 - PHQ-9 Billing: Yes Source: Developed by Drs. Doni Piedra, Nery Shields, Rg Schneider and colleagues, with an educational flakito from [employer]. Thrive Questionnaire Date Thrive assessed: 01/22/25 I am a: Patient What is your living situation today?: I have a steady place to live Within the past 12 months, did the food you bought not last and you didn't have the money to get more?: Often true Within the past 12 months, did you worry whether your food would run out before you got money to buy more?: Often true Do you have trouble paying for medicines?: No Do you have trouble getting transportation to medical appointments?: No Do you have trouble paying your heating and electricity bill?: No Do you have trouble taking care of your child, family member or friend?: No Do you have trouble with day-to-day activities such as bathing, preparing meals, shopping, managing finances, etc.?: No Are you currently unemployed and looking for a job?: Yes Are you interested in more education?: No Currently or been in a relationship where the following occur: No concerns reported THRIVE Score: 2 AUDIT C Alcohol Use Questionnaire (AUDIT-C) 1. How often do you have a drink containing alcohol?: Never 3. How often do you have six or more drinks on one occasion?: Never Total Score: 0 Score Reviewed/Action Taken: Yes SCOTTY-7 AMB Questionnaire SCOTTY-7 Date SCOTTY - 7 assessed: 02/05/25 Feeling nervous, anxious, or on edge: 0 = Not at all Not being able to stop or control worryin = Not at all Worrying too much about different things: 0 = Not at all Trouble relaxin = Not at all Being so restless that it is hard to sit still: 0 = Not at all Becoming easily annoyed or irritable: 0 = Not at all Feeling afraid as if something awful might happen: 0 = Not at all Total SCOTTY-7 score (0-4 normal; 5-9 mild; 10-14 moderate; 15-21 severe): 0 Source: Developed by Drs. Doni Piedra, Nery Shields, Rg Schneider and colleagues, with an educational flakito from [employer]. SCOTTY-7 Assessment Billing SCOTTY-7 Assessment Tool: SCOTTY-7 Assessment 27006 Review of Systems Const Reports no additional complaints Eyes Reports requires corrective lenses ENT Reports no additional complaints Card Reports no additional complaints Resp Reports no additional complaints GI Denies abdominal pain, Reports bloating (Occasional after eating fried food), Denies change in bowel habits, Denies dyspepsia, Denies heartburn and Denies nausea Reports as per HPI Musc Reports no additional complaints Skin/Breast Denies breast skin changes, Denies breast pain, Denies breast mass and Denies rash Neuro Reports no additional complaints Psych Reports no additional complaints Endo Reports no additional complaints Herminio/Lymph Reports no additional complaints Aller/Immun Reports no additional complaints Physical exam (Primary Care) Vital Signs: Last Vital Signs Temp 98.4 F 02/05/25 15:22 Pulse 75 02/05/25 15:22 BP 110/80 02/05/25 15:22 Pulse Ox 99 02/05/25 15:22 Oxygen Delivery Method Room Air 02/05/25 15:22 BMI result Body Mass Index 34.1 Tobacco/Smoking Status: Tobacco use Status Tobacco use date assessed 04/19/24 02/05/25 15:36 Patient Tobacco Use Status Never used Tobacco 02/05/25 15:36 e-Cigarette/Vaping Use Never Used 02/05/25 15:36 PHQ-9: PHQ-9 Score PHQ-9: Total score 3 02/05/25 15:36 Depression Screening Interpretation: Negative Thrive Assessment: Date of Thrive Assessment Date Thrive assessed 01/22/25 02/05/25 15:36 Currently or been in a relationship where the following occur: No concerns reported Const General: no acute distress and alert Orientation/consciousness: patient oriented x3 HENMT Ears: external ears normal General nose exam: Normal external nose present Mouth: Normal oral and palatal mucosa present, oropharynx normal and moist mucous membranes Eyes General: appearance normal, both eyes and all related structures Conjunctivae: conjunctivae normal Sclerae: sclerae normal EOM: EOMs intact bilaterally Neck Neck: Yes full ROM, Yes no lymphadenopathy and Yes supple Resp Effort & Inspection: normal respiratory effort and able to speak in complete sentences Auscultation: clear to auscultation bilaterally Cardio Rate: regular rate Rhythm: regular rhythm Heart sounds: S1 normal heart sound present and S2 normal heart sound present GI Palpation (GI): Soft to palpation, nontender and no masses Auscultation: normal bowel sounds Other: Sees [facility] for her routine Pap and pelvic exam General: Yes no CVA tenderness Back/Spine/Pelvis Back: no CVA tenderness and No back tenderness Skin General skin exam: no rashes or lesions noted Neuro General: patient oriented x3, gait normal, tone normal, moves all extremities and no focal motor deficits Cognition (Neuro): normal cognition Extrem General: Yes full ROM, Yes no joint enlargement, Yes no clubbing, cyanosis or edema and Yes no calf tenderness Psych Appearance: grossly normal and well kempt Mental Status: mental status grossly normal Speech and movement: Normal speech and movement present Affect: normal affect Results Reviewed Results Reviewed: suly: Taryn Montero Age/Sex: 34/F [facility] 1990 [id number]#: [id number] Attend Dr: Nara Sanders DO Re11/11/24 Status: DEP ER Location: .ED Disch: SPEC : [id number] JAMES: 11/11/24 STATUS: COMP REQ : [id number] RECD: 11/11/[address]: Nataly Payne COMP: 11/11/24 ENTERED: 11/11/[address]: Elizabeth Sandy MD ORDERED: CBC Auto Diff Test Result Flag Reference WBC 8.6 4.8-10.8 X10*3/uL RBC 4.81 4.20-5.50 X10*6/uL HGB 14.3 12.0-16.0 g/dl HCT 42.3 37.0-47.0 % MCV 87.9 80.0-98.0 fL MCH 29.7 27.0-33.0 pg MCHC 33.8 31.0-35.0 g/dl RDW 13.2 11.0-16.0 % PLT 298 # 160-400 X10*3/uL MPV 11.3 9.4-12.3 fL Neut Pct Auto 63.4 45-73 % ImGran Pct Auto 0.3 0.0-0.4 % Lymp Pct Auto 29.7 20-40 % Merrick Pct Auto 5.8 2-11 % Eos Pct Auto 0.6 0-4 % Baso Pct Auto 0.2 0-2 % NRBC Pct Auto 0.0 0.0-0.2 /100WBC ANC Neut Abs # 5.5 2.0-8.3 x10*3/uL ImGran Abs Auto 0.03 0.00-0.03 X10*3/uL Lymph Abs Auto 2.6 1.2-4.9 X10*3/uL Merrick Abs Auto 0.5 0.1-1.2 X10*3/uL Eos Abs Auto 0.1 0.0-0.4 X10*3/uL Baso Abs Auto 0.0 0.0-0.2 X10*3/uL NRBC Abs Auto 0.000 0.0-0.012 X10*3/uL Name: Taryn Montero Age/Sex: 34/F : 1990 Unit#: [id number] Attend Dr: Elizabeth Sandy MD Re01/20/25 Status: DEP REF Location: [facility] Disch: SPEC : [id number] JAMES: 01/20/25 STATUS: COMP REQ : [id number] RECD: 01/20/25-[address]: Elizabeth Sandy MD COMP: 01/20/25 ENTERED: 01/20/[address]: ORDERED: Met Prof Fast, Vitamin D 25-OH Test Result Flag Reference Sodium 140 135-145 mmol/L Potassium 3.8 3.3-5.1 mmol/L CL 110 H 96-108 mmol/L CO2 24 22-29 mmol/L Gap 10 L 12-20 BUN 10 9-16 mg/dL Creat 0.67 0.5-1.4 mg/dL eGFR > 60 Chronic Kidney Disease: Estimated GFR < 60 mL/min/1.73m2 Severe Kidney Disease: Estimated GFR < 15 mL/min/1.73m2 FBS 79 60-99 mg/dL CA 8.8 # 8.4-10.2 mg/dL Vitamin D 25-OH 68.8 >30 ng/mL Health Based Reference Values* < 20 ng/mL Deficient 20-30 ng/mL Insufficient > 30 ng/mL Sufficient Name: Taryn Montero Age/Sex: 33/F : 1990 Unit#: [id number] Attend Dr: Elizabeth Sandy MD Re01/10/24 Status: DEP REF Location: HO.[facility] Di sreedhar: SPEC : [id number] JAMES: 01/10/24-1103 STATUS: COMP REQ : [id number] RECD: 01/10/24-[address]: Elizabeth Sandy MD COMP: 01/10/24-1345 ENTERED: 01/10/24-1102 ANOOP MARTINEZ: ORDERED: CMP Fast, IRON PROF, Lipid Panel, Vitamin D 25-OH, TSH Rflx Test Result Flag Reference Sodium 139 135-145 mmol/L Potassium 4.1 3.3-5.1 mmol/L CL 110 H 96-108 mmol/L CO2 22 22-29 mmol/L Gap 11 L 12-20 BUN 8 L 9-16 mg/dL Creat 0.66 0.5-1.4 mg/dL eGFR > 60 Chronic Kidney Disease: Estimated GFR < 60 mL/min/1.73m2 Severe Kidney Disease: Estimated GFR < 15 mL/min/1.73m2 FBS 81 60-99 mg/dL CA 9.2 8.4-10.2 mg/dL Iron 107 30-160 mcg/dL TIBC 376 228-428 mcg/dL Saturation 28 15-50 % UIBC 269 ug/dL Total Bili 1.3 H 0.0-1.0 mg/dL AST (GOT) 21 5-31 U/L ALT (GPT) 19 0-31 U/L Protein, Total 7.3 6.5-8.0 g/dL Alb 3.9 3.5-5.0 g/dL Triglyceride 99 <150 mg/dL Desirable Triglyceride: less than 150 mg/dL Borderline High Triglyceride 150-199 mg/dL High Triglyceride: 200-499 mg/dL Very High Triglyceride: greater than or equal to 5OO mg/dL Cholesterol 186 <200 mg/dL Desirable Cholesterol: less than 200 mg/dL Borderline High Cholesterol: 200-239 mg/dL High Cholesterol: greater than 239 mg/dL LDL Calculated 107 H <100 mg/dL Desirable LDL: less than 100 mg/dL Near Optimal/Above Optimal LDL: 110-129 mg/dL Borderline High LDL: 130-159 mg/dL High LDL: 160-189 mg/dL Very High LDL: greater than or equal to 190 mg/dL HDL 60 >40 mg/dL Desirable HDL: greater than 40 mg/dL Note: This HDL assay may give artificially low results in patients with liver disease. Alk Phos 57 39-117 U/L Vit D 25-OH Tot 34.4 >30 ng/mL Health Based Reference Values* < 20 ng/mL Deficient 20-30 ng/mL Insufficient > 30 ng/mL Sufficient *Chandler KIRKLAND. N Engl J Med. 2007;357:266-280 Care must be taken in interpreting Vitamin D results from different laboratories and methodologies. Published data demonstrated that results from patients undergoing hemodialysis may show a negative bias when tested with various automated 25-OH vitamin D assays when compared to LC-MS/MS. When testing samples from patients whose predominant form of Vitamin D is Vitamin D2, such as patients receiving Vitamin D2 supplementation, results that are subtherapeutic should be confirmed with another method such as LC-MS/MS. TSH 1.41 0.32-4.0 uIU/mL Coding Level of Care Code Est Pt Prev Care 18-39y(69739) Diagnoses Annual visit for general adult medical examination with abnormal findings Z00.01 History of Helicobacter pylori infection Z86.19 Additional Codes SCOTTY-7 Assessment Billing - SCOTTY-7 Assessment Tool: SCOTTY-7 Assessment 11961 ([id number]) PHQ-9 - 43442 - PHQ-9 Billing: Yes ([id number]) Assessment & Plan Assessment & Plan (1) Annual visit for general adult medical examination with abnormal findings: Code(s): Z00.01 - Encounter for general adult medical examination with abnormal findings Plan: Your fasting lab results reviewed with patient. Recommended dental visit every 6 months and regular eye exams, at least every 2 years. Take adequate calcium in diet and vitamin-D 3 at 2000 IU per cap once a day, in addition to weight- bearing exercises to help maintain good muscle tone and weight control. Instructed to do self-breast exam, and recommended to get yearly mammogram, starting at age 40. Goes to [facility] for her routine Pap and pelvic exam, declined offer to get flu vaccine or COVID booster. (2) History of Helicobacter pylori infection: Code(s): Z86.19 - Personal history of other infectious and parasitic diseases Category: Medical Plan: Completed treatment for H pylori infection, continue on pantoprazole 40 mg daily
--- OUTSIDE RECORDS SUMMARY | 2025-02-05 15:57 | XMS_ITS | Patient Health Record ---
Author Organization [facility] Address [address] [place] [id number] Care Team Providers Care Director Of Grants Name Role Phone Elizabeth Sandy MD Primary Care Provider Jos Stafford Jr [phone] Allergies Allergen (clinical drug ingredient) Drug/Non Drug [...] Status Risk Notes Problem Gastroesophageal reflux disease ([id number]) GERD (gastroeso phageal reflux disease) (K21.9) Active confirmed Vital Signs Blood pressure diastolic 77 mm Hg 08/01/2024 Height 59 in 08/01/2024 Blood pressure systolic 111 mm Hg 08/01/2024 Weight 175 lbs 08/01/2024 BMI 35.34 kg/m2 08/01/2024 Encounters Encounter Location Date Provider Diagnosis [facility] [address] [place] [id number] 08/01/2024 Jos Huitron Jr GERD (gastroesophageal reflux disease) K21.9 and Abn findings-GI tract R93.3 [facility] [address] [place] [address] 08/08/2024 Jos Huitron Jr Assessments Encounter Date [...] Insured Coverage Start Date Coverage End Date [facility] [address] [address] [place], [place] [id number] ANA GARZA Self - patient is the insured Medical (General) History Medical History History ICD Code Denies MA,DM,CVA,Lung disease,renal dise ase Surgical History Surgery Date(Month/Year) gallstones/cholecystectomy laparoscopic 2023
== END 2025-02-05 16:26 | disposition home or self-care (01) ==
LOC: HO.HMCC 15:19
PROVIDERS: PCP Internal Medicine; Visit Provider Internal Medicine
DX: Z00.01 Encounter for general adult medical examination with abnormal findings (principal); Z86.19 Personal history of other infectious and parasitic diseases

== ENCOUNTER → 2025-02-05 15:18 | Outpatient (BNVA) | payer OTHER, SELFPAY | PROVIDERS: PCP Internal Medicine; Visit Provider Internal Medicine | DX: Z00.01 Encounter for general adult medical examination with abnormal findings (principal); Z86.19 Personal history of other infectious and parasitic diseases; Z13.31 Encounter for screening for depression; Z13.39 Encounter for screening examination for other mental health and behavioral disorders; Z86.16 Personal history of COVID-19; Z28.20 Immunization not carried out because of patient decision for unspecified reason | CPT/HCPCS: 96127; 99395 ==